=== PATIENT | male | born 1950 | race Caucasian/White ===

== ENCOUNTER 2017-06-21 20:33 | Emergency (ER) | payer OTHER ==
[~2017-06-21] VITALS: Ht 165.1 cm; Wt 105.0 kg
[~2017-06-21 20:33] MED LIST: UNABLE
[2017-06-21 20:44] VITALS: TEMP 36.6; Ht 165.1 cm; Wt 105.0 kg
[2017-06-21] MEDS ORDERED: SODIUM CHLORIDE 0.9% 1000ML 1,000 ML IV STA (21:13)
[2017-06-21] MEDS ORDERED: ONDANSETRON INJ 2 MG/ML 2 ML VIAL IV STA (21:13)
[2017-06-21 21:46] LABS: BASO % 0.2 %; BASO ABS # 0.02 K/uL (0-0.2); EOS % 3.6 %; EOS ABS # 0.32 K/uL (0-0.5); HEMATOCRIT 44.3 % (42-52); HEMOGLOBIN 15.4 g/dL (14.0-18.0); IG# 0.03 K/uL (0.00-0.02); LYMPH % 27.7 %; LYMPH ABS # 2.49 K/uL (1.2-3.4); MEAN CELL VOLUME 87.9 fL (80-100); MEAN CORPUSCULAR HEMOGLOBIN 30.6 pg (25-34); MEAN CORPUSCULAR HGB CONC 34.8 g/dl (32-36); MEAN PLATELET VOLUME 10.4 fL (7.4-10.4); MONO % 8.7 %; MONO ABS # 0.78 K/uL (0.11-0.59); NEUT % 59.5 %; NEUT ABS # 5.36 K/uL (1.4-6.5); PLATELET COUNT 185 K/uL (130-400); RED CELL DISTRIBUTION WIDTH CV 13.6 % (11.5-14.5); RED CELL DISTRIBUTION WIDTH SD 43.9 fL (36.4-46.3)
[2017-06-21] MEDS: MoRPHine SULFATE 4 MG/ML 1 ML CARP\\VIAL IV PRN ×2 (21:51→23:28)
--- NOTE | 2017-06-21 21:54 | EMERGENCY ROOM VISIT NOTE ---
History Report prepared by Deb: Shawn Siddiqui Under the Supervision of: Dr. Timmy Baeza M.D. First contact with patient: 21:11 Chief Complaint: FLANK PAIN Stated Complaint: REALLY BAD KIDNEY PAIN History of Present Illness The patient is a 66 year old male who presents to the Emergency Room with complaints of worsening right flank pain that started two weeks ago. He rates his discomfort as a 9/10 in severity. The patient states that he currently has five kidney stones in on the right side with on near his prostate, one near his bladder, and three farther up. The patient has been taking pain medication for his symptoms, but states that he ran out of pain medication. He states that he has been experiencing right flank pain, but reports he is not able to see his physician, Dr. Ruiz, [place] The patient reports that Dr. Ruiz told him to report to the ED if he runs out of medication and his pain worsened. He reports that his pain has been worsening and he has been experiencing nausea. He denies groin or testicular pain, vomiting, abdominal pain. The patient reports a history left kidney failure--he has one functioning kidney. Source of History: patient Onset: two weeks ago Position: other (right flank) Symptom Intensity: 9/10 Timing: worsening Modifying Factors (Relieving): other (pain medication) Associated Symptoms: + nausea, No vomiting, No abdominal pain Review of Systems See HPI for pertinent positives & negatives. A total of 10 systems reviewed and were otherwise negative. Past Medical & Surgical Medical Problems: (1) Kidney stone Surgical Problems: (1) History of unilateral nephrectomy Family History FH: heart disease FHx: lung disease Hypertension Kidney stones Social History Smoking Status: Never Smoker Marital Status: Housing Status: lives with significant other Occupation Status: retired Current/Historical Medications Scheduled Aspirin (Aspirin Ec), 81 MG PO DAILY Escitalopram Oxalate (Lexapro), 5 MG PO DAILY Gemfibrozil (Lopid), 600 MG PO BID Prazosin Hcl (Prazosin), 1 MG PO HS Trazodone Hcl (Trazodone), 100 MG PO HS [Blood Pressure Med], 1 TAB PO DAILY Allergies Coded Allergies: No Known Allergies (Unverified , 06/21/17) Physical Exam Vital Signs Date Time Temp Pulse Resp B/P (MAP) Pulse Ox O2 Delivery O2 Flow Rate FiO2 06/21/17 22:45 72 162/88 94 Room Air 06/21/17 20:44 36.6 67 18 149/91 97 Room Air Physical Exam GENERAL: Patient is in no acute distress. HEENT: No acute trauma, normocephalic atraumatic, mucous membranes moist, no nasal congestion, no scleral icterus. NECK: No stridor, no adenopathy, no meningismus, trachea is midline. LUNGS: Clear to auscultation bilaterally, no wheeze, no rhonchi, breath sounds equal. HEART: 2/6 systolic murmur with a regular rhythm and rate. ABDOMEN: Soft, nontender, bowel sounds positive, no hernias, no peritonitis. EXTREMITIES: No cyanosis or edema, full range of motion of all the joints without pain or difficulty, no signs for acute trauma. NEUROLOGIC: Oriented x 3, no acute motor or sensory deficits, no focal weakness. SKIN: No rash, no jaundice, no diaphoresis. Medical Decision & Procedures ER Provider Diagnostic Interpretation: Radiology results as stated below per my review and radiologist interpretation: ABD/PELVIS WITHOUT FOR STONE CLINICAL HISTORY: 66 years-old Male presenting with EVALUATE FLANK PAIN/HEMATURIA, right-sided pain. TECHNIQUE: Multidetector CT of the abdomen and pelvis was performed without the use of intravenous contrast. IV contrast: None. A dose lowering technique was used consistent with the principles of ALARA (as low as reasonably achievable). COMPARISON: None. CT DOSE (mGy.cm): The estimated cumulative dose is 1699.39 mGy.cm. FINDINGS: Offc Spec topogram: Median sternotomy wires and cholecystectomy clips noted. Lung bases: Minimal basilar opacities, likely atelectasis. Solid 5 mm nodule in the left lower lobe (series 3 image 42). Aortic valve and coronary artery calcification. Normal heart size. Postsurgical changes of coronary artery bypass grafting. No pericardial or pleural effusion. Liver: Normal morphology. Normal density. Biliary: No gross biliary ductal dilatation allowing for noncontrast technique. Gallbladder surgically absent. Pancreas: Mild parenchymal atrophy. Spleen: Few parenchymal calcifications may be vascular in etiology. Spleen is mildly enlarged measuring over 13 cm in maximal sagittal dimension. Adrenal glands: Mild nodular thickening of the adrenal glands, nonspecific. Kidneys and ureters: Postsurgical changes of left nephrectomy. No suspicious nodularity in the operative bed allowing for noncontrast technique. Right renal parenchyma normal for noncontrast technique apart from vague hypodensity in the posterior aspect of the interpolar region, possibly cyst. Multiple nonobstructing renal calculi measuring up to 5 mm. Extrarenal right pelvis. Right ureter nondilated. Residual left ureter contains a calculus (series 3 image 358). Bladder: Incompletely evaluated secondary to underdistention. No bladder calculi. Pelvic organs: Calcifications in the prostate likely relate to benign prostatic hyperplasia. Seminal vesicles normal. Surgical clip noted posterior to the left seminal vesicle and the rectal prostatic recess. Bowel: Diverticulosis of the descending and proximal sigmoid colon. Scattered diverticula noted elsewhere. The appendix is normal. No bowel obstruction. Peritoneal cavity: No free fluid or intraperitoneal gas. Lymph nodes: No gross lymphadenopathy allowing for noncontrast technique. Mildly prominent lymph node in the portacaval region, likely reactive and subcentimeter in the short axis. Vasculature: Atherosclerosis of the normal caliber abdominal aorta. Abdominal wall: Small fat-containing umbilical hernia. Musculoskeletal: Degenerative changes of the spine. Mild osteopenia. IMPRESSION: 1. Right nephrolithiasis. No hydronephrosis. No right ureteral calculi. 2. Postsurgical changes of left nephrectomy. No suspicious soft tissue in the operative bed allowing for noncontrast technique. 3. Mild splenomegaly. 4. Diverticulosis. 5. Solid 5 mm pulmonary nodule in the left lower lobe. Follow-up per Raheem Society 2017 recommendations below. 6. Mild osteopenia. Please refer to below summary of Fleischner Society 2017 recommendations for follow-up of incidental CT nodules (H Marya, et al. Guidelines for management of incidental pulmonary nodules detected on CT images: From the Fleischner Society 2017. Radiology 2017; 284: 228-243.) SOLID NODULES Single nodule; size < 6 mm * Low risk patients: No routine follow-up * High risk patients: Optional CT at 12 months Single nodule; size 6-8 mm * Low risk patients: CT at 6-12 months, then consider CT at 18-24 months * High risk patients: CT at 6-12 months, then at 18-24 months Single nodule; size > 8 mm * Either low or high risk patients: Considered CT at 3 months, PET/CT, or tissue sampling Multiple nodules; size < 6 mm * Low risk patients: No routine follow up * High risk patients: Optional CT at 12 months Multiple nodules; size 6-8 mm * Low risk patients: CT at 3-6 months, then consider CT at 18-24 months * High risk patients: CT at 3-6 months, then at 18-24 months Multiple nodules; size > 8 mm * Low risk patients: CT at 3-6 months, then consider at 18-24 months * High risk patients: CT at 3-6 months, then at 18-24 months Note: These guidelines apply to incidental nodules. These guidelines do not apply to patients younger than 35 years, immunocompromised patients, or patients with cancer. * Low risk patients: Minimal or absent history of smoking and/or other known risk factors * High risk patients: History of smoking, exposure to other carcinogens, emphysema, fibrosis, upper lobe location, family history of lung cancer, etc. * If a nodule up to 8 mm is partly solid or is ground glass, further follow-up is required after 24 months to exclude possible slow growing adenocarcinoma. SUBSOLID NODULES Single ground-glass nodule * Nodule size < 6 mm: No routine follow-up * Nodule size > or = 6 mm: CT at 6-12 months to confirm persistence, then CT every 2 years until 5 years Single part-solid nodule * Nodule size < 6 mm: No routine follow-up * Nodules size > or = 6 mm: CT at 3-6 months to confirm persistence. If unchanged and solid component remains < 6 mm, annual CT should be performed for 5 years Multiple nodules * Nodule size < 6 mm: CT at 3-6 months. If stable, consider CT at 2 and 4 years. * Nodules size > or = 6 mm: CT at 3-6 months. Subsequent management based on the most suspicious nodule(s) Electronically signed by: Brayden Márquez M.D. 06/21/2017 10:56 PM Dictated Date/Time: 06/21/2017 10:49 PM Laboratory Results 06/21/17 21:38 Red Blood Count 5.04, Mean Corpuscular Volume 87.9, Mean Corpuscular Hemoglobin 30.6, Mean Corpuscular Hemoglobin Concent 34.8, Mean Platelet Volume 10.4, Neutrophils (%) (Auto) 59.5, Lymphocytes (%) (Auto) 27.7, Monocytes (%) (Auto) 8.7, Eosinophils (%) (Auto) 3.6, Basophils (%) (Auto) 0.2, Neutrophils # (Auto) 5.36, Lymphocytes # (Auto) 2.49, Monocytes # (Auto) 0.78, Eosinophils # (Auto) 0.32, Basophils # (Auto) 0.02 06/21/17 21:38 06/21/17 23:20 Test 06/21/17 21:38 06/21/17 23:20 White Blood Count 9.00 K/uL (4.8-10.8) Red Blood Count 5.04 M/uL (4.7-6.1) Hemoglobin 15.4 g/dL (14.0-18.0) Hematocrit 44.3 % (42-52) Mean Corpuscular Volume 87.9 fL (80-100) Mean Corpuscular Hemoglobin 30.6 pg (25-34) Mean Corpuscular Hemoglobin Concent 34.8 g/dl (32-36) Platelet Count 185 K/uL (130-400) Mean Platelet Volume 10.4 fL (7.4-10.4) Neutrophils (%) (Auto) 59.5 % Lymphocytes (%) (Auto) 27.7 % Monocytes (%) (Auto) 8.7 % Eosinophils (%) (Auto) 3.6 % Basophils (%) (Auto) 0.2 % Neutrophils # (Auto) 5.36 K/uL (1.4-6.5) Lymphocytes # (Auto) 2.49 K/uL (1.2-3.4) Monocytes # (Auto) 0.78 K/uL (0.11-0.59) Eosinophils # (Auto) 0.32 K/uL (0-0.5) Basophils # (Auto) 0.02 K/uL (0-0.2) RDW Standard Deviation 43.9 fL (36.4-46.3) RDW Coefficient of Variation 13.6 % (11.5-14.5) Immature Granulocyte % (Auto) 0.3 % Immature Granulocyte # (Auto) 0.03 K/uL (0.00-0.02) Urine Color YELLOW Urine Appearance CLEAR (CLEAR) Urine pH 5.0 (4.5-7.5) Urine Specific [place] 1.024 (1.000-1.030) Urine Protein TRACE (NEG) Urine Glucose (UA) NEG (NEG) Urine Ketones NEG (NEG) Urine Occult Blood NEG (NEG) Urine Nitrite NEG (NEG) Urine Bilirubin NEG (NEG) Urine Urobilinogen NEG (NEG) Urine Leukocyte Esterase NEG (NEG) Urine WBC (Auto) 0 /hpf (0-5) Urine RBC (Auto) 0-4 /hpf (0-4) Urine Hyaline Casts (Auto) 0 /lpf (0-5) Urine Epithelial Cells (Auto) 0-5 /lpf (0-5) Urine Bacteria (Auto) NEG (NEG) Urine Crystals CALCIUM OXALATE (NONE Anion Gap 6.0 mmol/L (3-11) Est Creatinine Clear Calc Drug Dose 51.3 ml/min Estimated GFR () 52.5 Estimated GFR (Non- 45.3 BUN/Creatinine Ratio 12.6 (10-20) Calcium Level 8.8 mg/dl (8.5-10.1) Total Bilirubin 0.3 mg/dl (0.2-1) Alanine Aminotransferase (ALT/SGPT) 51 U/L (12-78) Alkaline Phosphatase 78 U/L (45-117) Total Protein 7.0 gm/dl (6.4-8.2) Albumin 3.1 gm/dl (3.4-5.0) Globulin 3.9 gm/dl (2.5-4.0) Albumin/Globulin Ratio 0.8 (0.9-2) Aspartate Amino Transf (AST/SGOT) 62 U/L (15-37) Laboratory results reviewed by me. Medications Administered Medications (Trade) Dose Ordered Sig/Ana Route Start Time Stop Time Status Last Admin Dose Admin Ondansetron HCl (Zofran Inj) 4 mg NOW STAT IV 06/21/17 21:13 06/21/17 21:16 DC 06/21/17 21:50 4 MG Sodium Chloride 1,000 ml @ 999 mls/hr Q1H1M STAT IV 06/21/17 21:13 06/21/17 22:13 DC 06/21/17 21:50 999 MLS/HR Morphine Sulfate (MoRPHine SULFATE INJ) 4 mg Q15M PRN IV 06/21/17 21:15 06/22/17 00:12 DC 06/21/17 23:28 4 MG Oxycodone HCl (Roxicodone Immediate Rel 5MG Home Pack) 1 homepack UD ONCE PO 06/21/17 23:45 06/21/17 23:46 DC 06/21/17 23:42 1 HOMEPACK ED Course 2107: The patient was evaluated in room B07. A complete history and physical exam was performed. 2112: Ordered Sodium Chloride 1000 ml @ 999 mls/hr IV, Zofran Injection 4 mg IV. 2114: Ordered Morphine Sulfate 4 mg IV. 2335: Reevaluated the patient. Discussed results and discharge instructions: He verbalized understanding and agreement. The patient is ready for discharge. 5: Ordered Oxycodone HCl 1 homepack PO. Medical Decision The patient is a 66 year old male who presents to the Emergency Room with complaints of worsening right flank pain that started two weeks ago. Differential diagnoses considered include renal colic, renal failure, hydronephrosis, UTI, electrolyte imbalance, dehydration, anemia, and musculoskeletal pain. There is no leukocytosis or concerning anemia. Renal panel testing shows some mild renal insufficiency, no significant electrolyte abnormality requiring correction. AST slightly elevated, no bilirubin elevation. Urinalysis does not show evidence for infection. Abdominal and pelvis CT shows evidence for renal stones but no hydronephrosis or ureteral stone. No bowel obstruction. The patient presents with right flank pain. He does admit the pain seems worse with certain movements. The pain may in fact be musculoskeletal. The patient received IV morphine, IV Zofran and IV saline, he is more comfortable. I do think the patient can be discharged. He was given information for the urologist [facility]. He was given an oxycodone home pack for severe pain, no oxycodone prescription was written. Patient was encouraged to return here for fever or vomiting or if he was having uncontrolled symptoms/pain. [place] Drug Monitoring Program Search Results: patient reviewed within database, see additional documentation Drug Monitoring Findings: He just received 90 Xanax tablets 1 mg five days ago. His last narcotic prescription was June 04 for 12 Hydrocodone Medication Reconcilliation Current Medication List: was personally reviewed by me Blood Pressure Screening Patient's blood pressure: Elevated blood pressure Blood pressure disposition: Referred to PCP Impression Primary Impression: Right flank pain Scribe Attestation The scribe's documentation has been prepared under my direction and personally reviewed by me in its entirety. I confirm that the note above accurately reflects all work, treatment, procedures, and medical decision making performed by me. Departure Information Dispostion Home / Self-Care Referrals Kip Arroyo D.O. (PCP) William Elias M.D. Forms HOME CARE DOCUMENTATION FORM, IMPORTANT VISIT INFORMATION Patient Instructions My [facility] Additional Instructions stay well hydrated oxy ir 1 tab every 4 hours for pain see urology this week--call for an appt friday return for fever, vomiting, uncontrolled pain heat to the flank may help as we discussed
[2017-06-21] MEDS ORDERED: PRAZ1CAP10 PO (22:01)
[2017-06-21] MEDS ORDERED: GEMF600T3 PO (22:01)
[2017-06-21] MEDS ORDERED: ASPI81TA28 PO (22:01)
[2017-06-21] MEDS ORDERED: ESCI1TAB6 PO (22:01)
[2017-06-21] MEDS ORDERED: TRAZ100T29 PO (22:01)
[2017-06-21] MEDS ORDERED: BLOOD PRESSURE MED PO (22:05)
[2017-06-21 22:15] LABS: ALBUMIN 3.1 gm/dl (3.4-5.0); CALCIUM 8.8 mg/dl (8.5-10.1); CREATININE 1.56 mg/dl (0.60-1.40)
[2017-06-21 22:45] VITALS: BP 162/88; PULSE 72; O2SAT 94
--- NOTE | 2017-06-21 22:58 | DIAGNOSTIC IMAGING REPORT ---
ABD/PELVIS WITHOUT FOR STONE CLINICAL HISTORY: 66 years-old Male presenting with EVALUATE FLANK PAIN/HEMATURIA, right-sided pain. TECHNIQUE: Multidetector CT of the abdomen and pelvis was performed without the use of intravenous contrast. IV contrast: None. A dose lowering technique was used consistent with the principles of ALARA (as low as reasonably achievable). COMPARISON: None. CT DOSE (mGy.cm): The estimated cumulative dose is 1699.39 mGy.cm. FINDINGS: Hotel Controller topogram: Median sternotomy wires and cholecystectomy clips noted. Lung bases: Minimal basilar opacities, likely atelectasis. Solid 5 mm nodule in the left lower lobe (series 3 image 42). Aortic valve and coronary artery calcification. Normal heart size. Postsurgical changes of coronary artery bypass grafting. No pericardial or pleural effusion. Liver: Normal morphology. Normal density. Biliary: No gross biliary ductal dilatation allowing for noncontrast technique. Gallbladder surgically absent. Pancreas: Mild parenchymal atrophy. Spleen: Few parenchymal calcifications may be vascular in etiology. Spleen is mildly enlarged measuring over 13 cm in maximal sagittal dimension. Adrenal glands: Mild nodular thickening of the adrenal glands, nonspecific. Kidneys and ureters: Postsurgical changes of left nephrectomy. No suspicious nodularity in the operative bed allowing for noncontrast technique. Right renal parenchyma normal for noncontrast technique apart from vague hypodensity in the posterior aspect of the interpolar region, possibly cyst. Multiple nonobstructing renal calculi measuring up to 5 mm. Extrarenal right pelvis. Right ureter nondilated. Residual left ureter contains a calculus (series 3 image 358). Bladder: Incompletely evaluated secondary to underdistention. No bladder calculi. Pelvic organs: Calcifications in the prostate likely relate to benign prostatic hyperplasia. Seminal vesicles normal. Surgical clip noted posterior to the left seminal vesicle and the rectal prostatic recess. Bowel: Diverticulosis of the descending and proximal sigmoid colon. Scattered diverticula noted elsewhere. The appendix is normal. No bowel obstruction. Peritoneal cavity: No free fluid or intraperitoneal gas. Lymph nodes: No gross lymphadenopathy allowing for noncontrast technique. Mildly prominent lymph node in the portacaval region, likely reactive and subcentimeter in the short axis. Vasculature: Atherosclerosis of the normal caliber abdominal aorta. Abdominal wall: Small fat-containing umbilical hernia. Musculoskeletal: Degenerative changes of the spine. Mild osteopenia. IMPRESSION: 1. Right nephrolithiasis. No hydronephrosis. No right ureteral calculi. 2. Postsurgical changes of left nephrectomy. No suspicious soft tissue in the operative bed allowing for noncontrast technique. 3. Mild splenomegaly. 4. Diverticulosis. 5. Solid 5 mm pulmonary nodule in the left lower lobe. Follow-up per Raheem Society 2017 recommendations below. 6. Mild osteopenia. Please refer to below summary of Fleischner Society 2017 recommendations for follow-up of incidental CT nodules (Alaina Malhotra et al. Guidelines for management of incidental pulmonary nodules detected on CT images: From the Fleischner Society 2017. Radiology 2017; 284: 228-243.) SOLID NODULES Single nodule; size < 6 mm * Low risk patients: No routine follow-up * High risk patients: Optional CT at 12 months Single nodule; size 6-8 mm * Low risk patients: CT at 6-12 months, then consider CT at 18-24 months * High risk patients: CT at 6-12 months, then at 18-24 months Single nodule; size > 8 mm * Either low or high risk patients: Considered CT at 3 months, PET/CT, or tissue sampling Multiple nodules; size < 6 mm * Low risk patients: No routine follow up * High risk patients: Optional CT at 12 months Multiple nodules; size 6-8 mm * Low risk patients: CT at 3-6 months, then consider CT at 18-24 months * High risk patients: CT at 3-6 months, then at 18-24 months Multiple nodules; size > 8 mm * Low risk patients: CT at 3-6 months, then consider at 18-24 months * High risk patients: CT at 3-6 months, then at 18-24 months Note: These guidelines apply to incidental nodules. These guidelines do not apply to patients younger than 35 years, immunocompromised patients, or patients with cancer. * Low risk patients: Minimal or absent history of smoking and/or other known risk factors * High risk patients: History of smoking, exposure to other carcinogens, emphysema, fibrosis, upper lobe location, family history of lung cancer, etc. * If a nodule up to 8 mm is partly solid or is ground glass, further follow-up is required after 24 months to exclude possible slow growing adenocarcinoma. SUBSOLID NODULES Single ground-glass nodule * Nodule size < 6 mm: No routine follow-up * Nodule size > or = 6 mm: CT at 6-12 months to confirm persistence, then CT every 2 years until 5 years Single part-solid nodule * Nodule size < 6 mm: No routine follow-up * Nodules size > or = 6 mm: CT at 3-6 months to confirm persistence. If unchanged and solid component remains < 6 mm, annual CT should be performed for 5 years Multiple nodules * Nodule size < 6 mm: CT at 3-6 months. If stable, consider CT at 2 and 4 years. * Nodules size > or = 6 mm: CT at 3-6 months. Subsequent management based on the most suspicious nodule(s) Electronically signed by: Brayden Márquez M.D. 06/21/2017 10:56 PM Dictated Date/Time: 06/21/2017 10:49 PM
[2017-06-21] MEDS ORDERED: OXYCODONE IR HOME PACK PO ONE (23:45)
[2017-06-21 23:50] LABS: POTASSIUM 3.9 mmol/L (3.5-5.1)
== END 2017-06-21 23:45 | disposition home or self-care (01) ==
LOC: C.EDB 20:33
DX: R10.9 Unspecified abdominal pain (principal); Z82.49 Family history of ischemic heart disease and other diseases of the circulatory system; Z79.82 Long term (current) use of aspirin; K57.90 Diverticulosis of intestine, part unspecified, without perforation or abscess without bleeding

== ENCOUNTER 2019-07-06 14:46 | Inpatient (IN) ==
[2019-07-06] MEDS ORDERED: MIDAZOLAM HCL 1 MG/ML 2ML VIAL ONE (14:47)
[2019-07-06] MEDS ORDERED: NITROGLYCERIN/D5W 100MCG/ML 20ML SYR ONE (14:47)
[2019-07-06] MEDS ORDERED: fentaNYL citrate 100 MCG/2 ML VIAL ONE ×2 (14:47→15:03)
[2019-07-06] MEDS ORDERED: HEPARIN (PORCINE) 1000 UNIT/ML 10 ML (CATH LAB USE ONLY) ONE (14:47)
[2019-07-06] MEDS ORDERED: NiCARDipine HCL INJ 2.5 MG/ML 10 ML AMP ONE (14:47)
[2019-07-06] MEDS ORDERED: ONDANSETRON INJ 2 MG/ML 2 ML VIAL IV STA (15:01)
[2019-07-06] MEDS ORDERED: fentaNYL citrate 100 MCG/2 ML VIAL IV PRN (15:01)
--- NOTE | 2019-07-06 15:05 | XRay Report ---
XR chest 1V portable CLINICAL HISTORY: Chest Pain dyspnea COMPARISON STUDY: 03/17/2019 FINDINGS: Prior median sternotomy. Mild stable cardiomegaly. Diaphragms are smooth. The lungs are clear. IMPRESSION: No acute process. ACT 112: Negative or not required by law. The above report was generated using voice recognition software. It may contain grammatical, syntax or spelling errors. Electronically signed by: Huang Eckert M.D. 07/06/2019 3:03 PM
[2019-07-06 15:06] LABS: Basophils # (auto) 0.01 K/uL (0-0.2); Basophils % (auto) 0.1 %; Eosinophils # (auto) 0.11 K/uL (0-0.5); Eosinophils % (auto) 0.7 %; Hematocrit (blood only) 41.6 % (42-52); Hemoglobin 14.1 g/dL (14.0-18.0); Immature Granulocytes # (auto) 0.07 K/uL (0.00-0.02); Immature Granulocytes % (auto) 0.4 %; Lymphocytes # (auto) 1.92 K/uL (1.2-3.4); Lymphocytes % (auto) 11.9 %; Mean Corpuscular Hemoglobin 30.5 pg (25-34); Mean Corpuscular Hgb Conc 33.9 g/dL (32-36); Mean Platelet Volume 10.8 fL (7.4-10.4); Monocytes # (auto) 1.77 K/uL (0.11-0.59); Neutrophils # (auto) 12.25 K/uL (1.4-6.5); Neutrophils % (auto) 75.9 %; Platelet Count 155 K/uL (130-400); RDW Standard Deviation 49.5 fL (36.4-46.3); Red Blood Count 4.62 M/uL (4.7-6.1); White Blood Count 16.13 K/uL (4.8-10.8)
--- NOTE | 2019-07-06 15:06 | Electrocardiogram Report ---
Test Reason : Blood Pressure : / mmHG Vent. Rate : 086 BPM Atrial Rate : 086 BPM P-R Int : 148 ms QRS Dur : 092 ms QT Int : 384 ms P-R-T Axes : 030 021 083 degrees QTc Int : 459 ms Poor data quality, interpretation may be adversely affected Sinus rhythm with Premature atrial complexes in a pattern of bigeminy Inferior infarct (cited on or before 17-MAR-2019) T wave abnormality, consider lateral ischemia ACUTE AL / STEMI Consider right ventricular involvement in acute inferior infarct Abnormal ECG When compared with ECG of 17-MAR-2019 19:19, Premature atrial complexes are now Present ST elevation now present in Inferior leads T wave inversion now evident in Inferior leads Confirmed by Alek Osman ([id number]) on 07/06/2019 3:05:52 PM Referred By: REFERRED SELF Confirmed By:Tushar Osman
--- NOTE | 2019-07-06 15:09 | Emergency Department Note ---
Entered by Casper Cooper acting as a scribe for History of Present Illness General Chief complaint: Heart Alert Stated complaint: heart alert Source: patient and EMS History of Present Illness Onset (ago): day(s) (this morning) Location: chest Current Pain Intensity: 8 Relieved By: + medication (aspirin) Associated symptoms: + other (Positive for chronic SOB and a chronic cough. Negative for pain/swelling in his legs.) The patient is a 68 year old male who presents to the emergency department with complaints of constant chest pain beginning this morning. The patient states that he had an ND and multiple cardiac stents placed 3 days ago and he notes that he was discharged yesterday. He reports that he was given 4 aspirin by EMS, and he states that his chest pain is not as bad now. He rates his pain as an 8/10. He also complains of chronic SOB and a chronic cough, but he denies any pain/swelling in his legs. He notes that he does not smoke cigarettes. Per EMS, the patient also has a history of bypass surgery. The patient reports that he is supposed to use oxygen at home. Home Medications Home Medications Medication Instructions Recorded Confirmed Type alprazolam 1 mg PO TID PRN 02/18/18 03/17/19 History prazosin 1 mg PO HS 02/18/18 03/17/19 History trazodone 100 mg PO HS 02/18/18 03/17/19 History allopurinol 100 mg PO BID #60 tab 09/30/18 03/17/19 Rx paroxetine HCl 30 mg PO DAILY 09/30/18 03/17/19 History amlodipine 10 mg PO DAILY 03/17/19 03/17/19 History tamsulosin 0.4 mg PO DAILY 03/17/19 03/17/19 History Allergies Allergy/AdvReac Type Severity Reaction Status Date / Time ciprofloxacin Allergy Severe Swelling Unverified 07/06/19 19:13 of Lip/Tongue/Throat Past Med/Surg History Medical History (Updated 07/06/19 @ 16:47 by Antonio Everett MD) Arthritis Back pain (Acute) Bilateral leg pain (Acute) Chronic renal disease (Inactive) Emphysema of lung Gout (Acute) Heart disease HTN (hypertension) (Acute) Hypertension (Inactive) Kidney stone Left torticollis (Inactive) Myocardial infarct Noncompliance with medication regimen (Inactive) S/p nephrectomy Surgical History History of open heart surgery Hx of CABG Family History (Updated 07/06/19 @ 14:56 by Casper Cooper) Other No significant family history Social History (Updated 07/06/19 @ 14:56 by Casper Cooper) Preferred Language: Kyrgyz Communication Ability: Effective Automobile Bumper Straightener Required: No Current Living Situation: Spouse and Family Current Living Situation Comment: Lives with spouse and daughter Other Information That Helps Us Care for You: No Feels Safe at Home: Yes Safety Concerns: Feels Safe At This Time Smoking Status: Never smoker Hx Alcohol Use: No Hx Substance Use: No Review of Systems See HPI for pertinent positives & negatives. and A total of 10 systems reviewed and were otherwise negative Physical Exam Vital Signs Vital Signs - 24 hr 07/06/19 14:51 07/06/19 14:55 07/06/19 14:58 Temperature 36.5 C Temperature Source Oral Pulse Rate 91 H 83 86 Pulse Rate [Apical] Pulse Rate from SpO2 Sensor 88 84 97 H Pulse Rhythm [Apical] Pulse Strength [Apical] Respiratory Rate 16 Respiratory Effort / Characteristics Respiratory Depth Blood Pressure 179/102 H 168/99 H Blood Pressure [Right Arm] Blood Pressure Mean 134 107 Blood Pressure Mean [Right Arm] Blood Pressure Position [Right Arm] Pulse Oximetry 96 98 97 Oxygen Delivery Method Room Air Oxygen Flow Rate Sepsis Recent Fever Within 48 Hours No Sepsis New/Unexplained Change in Mental Status No Sepsis Action Taken by Nursing No Action Required 07/06/19 15:00 07/06/19 15:11 07/06/19 16:00 Temperature Temperature Source Pulse Rate 90 Pulse Rate [Apical] 83 Pulse Rate from SpO2 Sensor Pulse Rhythm [Apical] Regular Pulse Strength [Apical] Normal Respiratory Rate 20 22 Respiratory Effort / Characteristics Spontaneous Respiratory Depth Normal Blood Pressure 206/109 H Blood Pressure [Right Arm] 153/87 H Blood Pressure Mean Blood Pressure Mean [Right Arm] 109 Blood Pressure Position [Right Arm] Sitting Pulse Oximetry 97 95 97 Oxygen Delivery Method Nasal Cannula Nasal Cannula Room Air Oxygen Flow Rate 3 3 Sepsis Recent Fever Within 48 Hours Sepsis New/Unexplained Change in Mental Status Sepsis Action Taken by Nursing 07/06/19 16:15 Temperature Temperature Source Pulse Rate Pulse Rate [Apical] 78 Pulse Rate from SpO2 Sensor Pulse Rhythm [Apical] Regular Pulse Strength [Apical] Normal Respiratory Rate 22 Respiratory Effort / Characteristics Spontaneous Respiratory Depth Normal Blood Pressure Blood Pressure [Right Arm] 149/80 H Blood Pressure Mean Blood Pressure Mean [Right Arm] 103 Blood Pressure Position [Right Arm] Sitting Pulse Oximetry 97 Oxygen Delivery Method Room Air Oxygen Flow Rate Sepsis Recent Fever Within 48 Hours Sepsis New/Unexplained Change in Mental Status Sepsis Action Taken by Nursing GENERAL: The patient is awake and alert. He is very uncomfortable and anxious appearing. EYES: The conjunctivae are clear. The pupils are round and reactive. EARS, NOSE, MOUTH AND THROAT: The nose is without any evidence of any deformity. Mucous membranes are moist. Tongue is midline. NECK: The neck is nontender and supple. RESPIRATORY: Diminished breath sounds are noted throughout. There are scattered rhonchi noted throughout. There is no tachypnea or conversational dyspnea. CARDIOVASCULAR: Regular rate and rhythm noted there no murmurs rubs or gallops normal S1 normal S2. GASTROINTESTINAL: The abdomen is soft. Abdomen is nontender. MUSCULOSKELETAL/EXTREMITIES: There is no evidence of gross deformity full range of motion is noted in the hips and shoulders. SKIN: There is no obvious evidence of any rash. There is significant ecchymosis noted in the right wrist as well as the right groin. These of the areas of the recent cardiac catheterization. Pulses are symmetric in both wrists. There is pedal edema bilaterally. NEUROLOGIC: Patient is awake alert and oriented x3. Course Course 1447: The patient was evaluated in room B1. A complete history and physical exam was performed. 1510: Upon reevaluation, the patient is stable. I discussed the findings and the treatment plan with the patient. He expresses agreement and understanding. I spoke with JUSTYN Reece. The patient was taken to the [facility] for further treatment. Consultations Consultation #1: I reviewed the patient's case with JUSTYN Reece. The patient was taken to the [facility] for further treatment. Time: 15:10 Administered Medications Albuterol (Ventolin 0.5% 2.5mg/0.5ml) 2.5 mg NEB Q6R PRN PRN Reason: wheeze Stop: 08/05/19 18:59 Last Admin: 07/06/19 19:09 Dose: 2.5 mg Documented by: [id number] Amlodipine Besylate (Norvasc) 10 mg PO QAM [facility] Stop: 03/26/20 18:14 Last Admin: 07/06/19 19:24 Dose: 10 mg Documented by: [id number] Fentanyl Citrate (Fentanyl Citrate) 50 mcg IV Q15M PRN PRN Reason: Pain Stop: 07/20/19 15:00 Last Admin: 07/06/19 15:05 Dose: 50 mcg Documented by: [id number] Sodium Chloride (Nss 1000ml) 500 mls @ 75 mls/hr IV .Q6H40M [facility] Stop: 07/06/19 22:54 Last Admin: 07/06/19 18:00 Dose: 75 mls/hr Documented by: [id number] Isosorbide Mononitrate (Imdur Extended Rel) 30 mg PO QAM [facility] Stop: 08/05/19 18:14 Last Admin: 07/06/19 19:23 Dose: 30 mg Documented by: [id number] Discontinued Medications Fentanyl Citrate (Fentanyl Citrate) Confirm Administered Dose 100 mcg .ROUTE .STK-MED ONE Stop: 07/06/19 14:48 Last Increment: 07/06/19 16:12 Dose: 50 mcg Documented by: [id number] Fentanyl Citrate (Fentanyl Citrate) Confirm Administered Dose 100 mcg .ROUTE .STK-MED ONE Stop: 07/06/19 15:04 Last Admin: 07/06/19 15:08 Dose: Not Given Documented by: [id number] Heparin Sodium (Porcine) (Heparin Iv Bolus (Beading Machine Operator Use Only)) Confirm Admini stered Dose 10,000 units .ROUTE .STK-MED ONE Stop: 07/06/19 14:48 Last Admin: 07/06/19 16:13 Dose: 8,000 units Documented by: [id number] Heparin Sodium/Sodium Chloride (Heparin/Nss 1000 Unit/500ml Flush Bag) Confirm Administered Dose 3,000 units IV .STK-MED ONE Stop: 07/06/19 14:48 Last Admin: 07/06/19 18:21 Dose: Not Given Documented by: [id number] Midazolam HCl (Versed) Confirm Administered Dose 2 mg .ROUTE .STK-MED ONE Stop: 07/06/19 14:48 Last Increment: 07/06/19 16:13 Dose: 1 mg Documented by: [id number] Nicardipine HCl (Cardene) Confirm Administered Dose 25 mg .ROUTE .STK-MED ONE Stop: 07/06/19 14:48 Last Admin: 07/06/19 18:21 Dose: Not Given Documented by: [id number] Nitroglycerin/Dextrose (Nitroglycerin/D5w 100 Mcg/Ml 20ml Syringe) Confirm Ad ministered Dose 2,000 mcg .ROUTE .STK-MED ONE Stop: 07/06/19 14:48 Last Admin: 07/06/19 18:21 Dose: Not Given Documented by: [id number] Ondansetron HCl (Zofran) 4 mg IV NOW STA Stop: 07/06/19 15:02 Last Admin: 07/06/19 15:05 Dose: 4 mg Documented by: [id number] Critical Care Time Critical Care Time: Yes Total Critical Care Time: 40 I have personally spent greater than 45 minutes of critical care time in the direct management of this patient. This includes bedside care, interpretation of diagnostic studies, and testing, discussion with consultants, patient, and family members, and other required patient management activities. This 45 minutes is in excess of all separately billable procedures. Medical Decision Making Differential Diagnosis Differential diagnoses includes but is not limited to acute coronary syndrome, myocardial infarction, pericarditis, pulmonary embolus, aortic dissection, pneumonia, pneumothorax, musculoskeletal, shingles, esophageal. Medical Records Attestation: I reviewed the patient's medical records. Home Medications Current Medication List: was personally reviewed by me Laboratory Data Attestation: I reviewed the patient's lab results. Result diagrams: 07/06/19 14:49 07/06/19 14:49 Lab Results 07/06/19 07/06/19 07/06/19 Range/Units 14:49 14:49 14:49 WBC 16.13 H (4.8-10.8) K/uL RBC 4.62 L (4.7-6.1) M/uL Hgb 14.1 (14.0-18.0) g/dL Hct 41.6 L (42-52) % MCV 90.0 (80-100) fL MCH 30.5 (25-34) pg MCHC 33.9 (32-36) g/dL RDW Std Deviation 49.5 H (36.4-46.3) fL RDW Coeff of Kathleen 15.0 H (11.5-14.5) % Plt Count 155 (130-400) K/uL MPV 10.8 H (7.4-10.4) fL Immature Gran % (Auto) 0.4 % Neut % (Auto) 75.9 % Lymph % (Auto) 11.9 % [place] % (Auto) 11.0 % Eos % (Auto) 0.7 % Baso % (Auto) 0.1 % Immature Gran # (Auto) 0.07 H (0.00-0.02) K/uL Neut # (Auto) 12.25 H (1.4-6.5) K/uL Lymph # (Auto) 1.92 (1.2-3.4) K/uL [place] # (Auto) 1.77 H (0.11-0.59) K/uL Eos # (Auto) 0.11 (0-0.5) K/uL Baso # (Auto) 0.01 (0-0.2) K/uL PT 11.0 (9.0-12.0) Seconds INR 1.1 (0.9-1.1) APTT 28.1 (21.0-31.0) Seconds PTT Ratio 1.0 Sodium 138 (136-145) mmol/L Potassium 3.9 (3.5-5.1) mmol/L Chloride 106 (98-107) mmol/L Carbon Dioxide 25 (21-32) mmol/L Anion Gap 7.0 (3-11) BUN 22 H (7-18) mg/dl Creatinine 1.62 H (0.6-1.4) mg/dl Est Cr Clr Drug Dosing 50.5 ml/min Est GFR ( Amer) 49.5 Est GFR (Non-Af Amer) 42.7 BUN/Creatinine Ratio 13.5 (10-20) Glucose 95 (70-99) mg/dl Calcium 8.3 L (8.5-10.1) mg/dl Total Bilirubin 0.8 (0.2-1) mg/dl AST 111 H (15-37) U/L ALT 91 H (12-78) U/L Alkaline Phosphatase 131 H (45-117) U/L Troponin I 23.300 H* (0-0.045) ng/ml Total Protein 6.8 (6.4-8.2) gm/dl Albumin 2.3 L (3.4-5.0) gm/dl Globulin 4.5 H (2.5-4.0) gm/dl Albumin/Globulin Ratio 0.5 L (0.9-2) Lipase 223 (73-393) U/L Imaging Data Radiologist's Impression: Radiology results as stated below per my review and the radiologist's interpretation: XR chest 1V portable FINDINGS: Prior median sternotomy. Mild stable cardiomegaly. Diaphragms are smooth. The lungs are clear. IMPRESSION: No acute process. ACT 112: Negative or not required by law. The above report was generated using voice recognition software. It may contain grammatical, syntax or spelling errors. Electronically signed by: Huang Eckert M.D. 07/06/2019 3:03 PM ECG Data Attestation: I personally reviewed and interpreted this ECG as follows: Indication: + chest pain Rate (beats per minute): 86 Rhythm: + sinus rhythm ECG ST segments: + ST elevation (Persistent of previously noted inferior ST elevations with reciprocal changes noted.) ECG Findings: + PACs Additional Comments: Prehospital EKG: NS, 83, no ectopy, anterior and lateral ST depressions, inferior ST elevation, compared to 03/17/19, inferior ST elevations are new. Blood Pressure Blood Pressure Findings: Elevated blood pressure Blood Pressure Disposition: further management by hospitalist SHEN Crystal An order was placed for continuous cardiac monitoring. The monitor shows a rate of 75 with sinus rhythm. The patient is a 68-year-old male who presented to the emergency department for an evaluation of chest pain. The patient arrived at the emergency department via ambulance. We received a prehospital notification about the patient because of abnormal EKG which appears to be consistent with acute ND. The patient recently had stent placement at [facility]. He was only discharged yesterday. The patient's EKG appears to be consistent with an acute ST segment elevation ND in the inferior leads. The patient had a right-sided coronary stent. I would be concerned this could represent stent occlusion. The patient was made a heart alert prior to arrival. He was treated with aspirin prior to arrival. He was treated with pain medication in the emergency department. I di scussed the patient's condition with the interventionalist lay out helper. He was evaluated in the emergency department by the business continuity director. We were also able to obtain the patient's cath report from [facility] via fax. This was reviewed prior to cardiology's arrival. The patient was reevaluated multiple times he was feeling somewhat improved on reevaluation. He was taken directly to the cardiac catheterization lab. I discussed his case also with the [facility] hospitalist. Impression & Plan ST elevation (STEMI) myocardial infarction, Hypertension, Left-sided chest pain Discharge Plan Visit Data *Final* Discharge Date/Time: 07/06/19 15:24 Chief Complaint: Heart Alert Stated Complaint: heart alert ED Provider: Matthew Robles Discharge Problem: ST elevation (STEMI) myocardial infarction, Hypertension, Left-sided chest pain Patient Disposition: Admitted As Inpatient Discharge Instructions Interventions: ED Discharge Assessment Last Done: 07/06/19 15:11 The scribe's documentation has been prepared under my direction and personally reviewed by me in its entirety. I confirm that the note above accurately reflects all work, treatment, procedures, and medical decision making performed by me.
[2019-07-06 15:17] LABS: INR 1.1 (0.9-1.1); Partial Thromboplastin Time 28.1 Seconds (21.0-31.0)
--- NOTE | 2019-07-06 15:19 | Pre Anesthesia Assessment ---
Date of Service July 06, 2019 Pre Sedation Assessment Vital Signs Temp Pulse Resp BP Pulse Ox 07/06/19 15:11 90 20 206/109 H 95 07/06/19 15:00 97 07/06/19 14:58 86 168/99 H 97 07/06/19 14:55 83 98 07/06/19 14:51 97.7 F 91 H 16 179/102 H 96 Cardiovascular RRR, no murmur, no edema Respiratory normal respiratory effort, lungs clear to auscultation Pre-Sedation Airway Assessment Smoking Status: Never smoker Hx Sleep Apnea: No Hx Difficult Intubation: No Short, Thick Neck: No Thyromental Distance: > or= 3.5 Finger Breadths Oral Cavity: + WNL Mallampati Class: III ASA: ASA3 Procedure Planning Contraindications for Sedation: none Current Medications Reviewed: Yes Notes The planned sedation has been discussed with the patient. Informed Consent was obtained. I have identified the patient, determined the appropriateness of sedation and have assessed the patient immediately prior to the procedure. All medicine(s) and interventions are by my order.
--- NOTE | 2019-07-06 15:20 | Cardiology Consultation ---
Date of Consultation July 06, 2019 Assessment & Plan (1) CAD (coronary artery disease): Patient here with recurrent chest pain, vomiting beginning this morning. This occurred in the setting of patient not being able to fill his new antihypertensives, antiplatelet therapy following discharge. Unclear if inferior ST elevations, elevated troponin are residual findings from recent NH or suggestive of subacute stent thrombosis. With ongoing symptoms we will plan for repeat coronary angiography. In the setting of recent contrast load, solitary kidney will limit additional contrast administration. Discussed risks, benefits, alternatives of procedure with patient and they are willing to proceed. Further recommendations pending findings of coronary angiography. History of Present Illness History of Present Illness Mr. Hansen is a 68-year-old man here with acute chest pain and ECG concerning for acute NH. Patient seen emergently in the ED after heart alert activated in route. Patient was discharged from [facility] yesterday after treatment for inferior STEMI on 07/03/2019. Catheterization at that time revealed mid RCA occlusion which was treated with a single drug-eluting stent (3 x 33 Xience) and angioplasty with 2.5 balloon to distal RCA. Was found to have severe proximal to mid circumflex disease which and per family patient was to undergo staged PCI in 2 to 3 weeks. His vein grafts were chronically occluded. HELLER not visualized. Post procedure echocardiogram showed preserved LV function with basal inferior hypokinesis. Patient discharged yesterday to home and was feeling well initially. Per he had a questionable choking episode last night. This morning was nauseous and vomited and later developed chest pain. Chest pain less severe than what had prior to his recent NH. EKG in route showed sinus rhythm with inferior Q waves and inferior ST elevations. Past medical history: Coronary artery disease with CABG 2010 with HELLER to LAD, vein graft to diagonal, OM and PDA; hypertension, asthma, dyslipidemia, carotid artery disease post carotid enterectomy, post left nephrectomy with chronic kidney disease, gout Allergies Allergy/AdvReac Type Severity Reaction Status Date / Time No Known Allergies Allergy Verified 03/17/19 20:35 Home Medications Home Medications Medication Instructions Recorded Confirmed Type alprazolam 1 mg PO TID PRN 02/18/18 03/17/19 History prazosin 1 mg PO HS 02/18/18 03/17/19 History trazodone 100 mg PO HS 02/18/18 03/17/19 History allopurinol 100 mg PO BID #60 tab 09/30/18 03/17/19 Rx paroxetine HCl 30 mg PO DAILY 09/30/18 03/17/19 History amlodipine 10 mg PO DAILY 03/17/19 03/17/19 History tamsulosin 0.4 mg PO DAILY 03/17/19 03/17/19 History Patient History Medical History (Updated 07/06/19 @ 16:47 by Antonio Everett MD) Arthritis Back pain (Acute) Bilateral leg pain (Acute) Chronic renal disease (Inactive) Emphysema of lung Gout (Acute) Heart disease HTN (hypertension) (Acute) Hypertension (Inactive) Kidney stone Left torticollis (Inactive) Myocardial infarct Noncompliance with medication regimen (Inactive) S/p nephrectomy Surgical History History of open heart surgery Hx of CABG Family History (Updated 07/06/19 @ 14:56 by Casper Cooper) Other No significant family history Social History (Updated 07/06/19 @ 14:56 by Casper Cooper) Preferred Language: Turkish Current Living Situation: Family Feels Safe at Home: Yes Smoking Status: Never smoker Hx Substance Use: No Review of Systems Review of Systems: All systems reviewed & are unremarkable except as noted in HPI & below Physical Exam Physical Exam: General: Uncomfortable, no acute distress HEENT: Sclerae anicteric Lungs: Tachypneic, audible wheezing Cardiac: Regular rate, 2 out of 6 systolic ejection murmur Abdomen: Soft, nontender Extremities: Warm, 2+ radial pulses. Ecchymosis at right radial artery access site and right common femoral artery access site Neuro: Nonfocal Psych: Alert orient x3, normal affect and mood Results & Data ([facility]) Vital Signs (Past 12 Hours) Vital Signs Temp Pulse Resp BP Pulse Ox 07/06/19 15:11 90 20 206/109 H 95 07/06/19 15:00 97 07/06/19 14:58 86 168/99 H 97 07/06/19 14:55 83 98 07/06/19 14:51 97.7 F 91 H 16 179/102 H 96 PG Care Time/CCT Total # of Minutes Spent Total Time Spent with Patient: Total time spent is greater than 50% in coordination of care (as documented) at patient's floor/unit and/or counseling patient: Coding Level of Care Code 34954 Initial Inpt Care Lvl 3 Diagnoses CAD (coronary artery disease) I25.10
[2019-07-06 15:22] LABS: Albumin Level 2.3 gm/dl (3.4-5.0); BUN Creatinine Ratio 13.5 (10-20); Calcium 8.3 mg/dl (8.5-10.1); Creatinine Clr Calc Pharmacy 50.5 ml/min; Est GFR (African American) 49.5; Est GFR (Non-African American) 42.7; Potassium 3.9 mmol/L (3.5-5.1)
[2019-07-06 15:28] LABS: Albumin Globulin Ratio 0.5 (0.9-2); Bilirubin,Total 0.8 mg/dl (0.2-1); Globulin 4.5 gm/dl (2.5-4.0); Total Protein 6.8 gm/dl (6.4-8.2); Troponin I 23.3 ng/ml (0-0.045)
--- NOTE | 2019-07-06 15:33 | Critical Care Consultation ---
Date of Consultation July 06, 2019 Assessment & Plan (1) Heart disease: Reason Critically Ill: Neuro: CAM ICU: Negative Cardiac: * Chest pain - EKG showing ST segment elevation with T wave inversion, new from study in 03/2019. Troponin elevated to 23.3. continue to trend. Cath * Hx CABG * Hx of HTN - BP elevated on arrival to 206/109. Respiratory: GI: * Elevated liver enzymes - AST 111, ALT 91 on admission. continue to trend. RENAL/LYTES: * Creatinine elevated to 1.62 on admission. Baseline unknown, but chart review suggests ~1.6. * electrolytes WNL * Hx of nephrectomy : ENDO: * no underlying history of diabetes. ICU protocol for hyperglycemia HEME: - hgb normal. no issues identified ID: - WBC elevated on admission. consider infection vs. stress response. - Nasal MRSA swab LINES/IV ACCESS: CODE STATUS: Full code DVT PROPHYLAXIS: Thank you for allowing us to participate in the care of this patient. Please refer to my attending physician's documentation for any further recommendations. History of Present Illness Reason for Consultation: Patient is a 68 yo M with a PMHx of ASCVD requiring CABG in 03/2019 and most recently PCI with 3 ATA placed 3 days ago at ___. He was brought to the ED as a heart alert this afternoon after developing chest pain this morning. He was administered 324mg ASA by EMS. EKG on arrival showed ST segment elevated with T wave inversion in the inferior leads, new compared to study in 03/2019. His troponin on arrival was 23.3. Liver enzymes were elevated. CXR showing no acute process. He was taken emergently to the industrial laborer. ICU team was asked by interventional cardiology team to assist with monitoring following his procedure. History was obtained by chart review Attending Physician: Alek Everett MD Allergies Allergy/AdvReac Type Severity Reaction Status Date / Time No Known Allergies Allergy Verified 03/17/19 20:35 Home Medications Home Medications Medication Instructions Recorded Confirmed Type alprazolam 1 mg PO TID PRN 02/18/18 03/17/19 History prazosin 1 mg PO HS 02/18/18 03/17/19 History trazodone 100 mg PO HS 02/18/18 03/17/19 History allopurinol 100 mg PO BID #60 tab 09/30/18 03/17/19 Rx paroxetine HCl 30 mg PO DAILY 09/30/18 03/17/19 History amlodipine 10 mg PO DAILY 03/17/19 03/17/19 History tamsulosin 0.4 mg PO DAILY 03/17/19 03/17/19 History Patient History Medical History (Updated 07/06/19 @ 14:55 by Casper Cooper) Arthritis Back pain (Acute) Bilateral leg pain (Acute) Chronic renal disease (Inactive) Emphysema of lung Gout (Acute) Heart disease HTN (hypertension) (Acute) Hypertension (Inactive) Kidney stone Left torticollis (Inactive) Myocardial infarct Noncompliance with medication regimen (Inactive) S/p nephrectomy Surgical History History of open heart surgery Hx of CABG Family History (Updated 07/06/19 @ 14:56 by Casper Cooper) Other No significant family history Social History (Updated 07/06/19 @ 14:56 by Casper Cooper) Preferred Language: Kazakh Current Living Situation: Family Feels Safe at Home: Yes Smoking Status: Never smoker Hx Substance Use: No Physical Exam Constitutional: WD/WN, vitals as above Eyes: + anicteric sclerae ENMT: external ear and nose normal, oropharynx normal Neck: normal visual inspection and trachea midline Respiratory: normal respiratory effort, lungs clear to auscultation Auscultation: no crackles, no rales, no rhonchi, no wheezes and no pleural rub Cardiovascular: RRR, no murmur, no edema Heart Sounds: normal S1 and normal S2 Gastrointestinal (Abdomen): normal bowel sounds, soft, nontender, no hepatosplenomegaly Skin: no rashes, warm and dry + ecchymosis (on R wrist and groin, consistent with recent cardiac stent access sites ) Results & Data Vital Signs (Past 12 Hours) Vital Signs Temp Pulse Resp BP Pulse Ox 07/06/19 15:11 90 20 206/109 H 95 07/06/19 15:00 97 07/06/19 14:58 86 168/99 H 97 07/06/19 14:55 83 98 07/06/19 14:51 36.5 C 91 H 16 179/102 H 96 Resident Activity Tracking Resident Involvement: Resident Care Provided Care Provided: Adult [facility] Medicine
[2019-07-06] MEDS ORDERED: SODIUM CHLORIDE 0.9% 1000ML 500 ML IV SCH (16:15)
[2019-07-06] MEDS ORDERED: ACETAMINOPHEN 325 MG TAB PO PRN (16:31)
--- NOTE | 2019-07-06 17:10 | Cardiac Catheterization ---
[facility] Data: Saw Offbearer Cardiac Status Clinical evaluation leading to the procedure CAD Presenation: Non STEMI Anginal Classification: CCS IV Heart Failure: No Cardiogenic Shock within 24 Hours: No Cardiac Arrest within 24 Hours: No Imaging Studies Past 6 Months: Yes Stress Studies Past 6 Months: No Diagnostic Physicians Name: Alek Everett MD Status: Emergency Closure Device Percutaneous Entry Location: Radial Closure Device: Radial Band Recommendations: Medical Therapy and/or Counseling Intraprocedure Events Significant Disection: No Perforation: No Cardiac Cath Procedure Full Procedure Date July 06, 2019 Pre-Procedure Diagnosis Pre-Procedure Diagnosis: Non STEMI AUC Score AUC Score: 8 Post-Procedure Diagnosis Post-Procedure Diagnosis: Severe CAD and Elevated Intracardiac Pressures Procedure(s) Performed Procedure(s) Performed: Coronary Angiography, Left Heart Cath, Ultrasound Guided Vascular Access and Bypass Graft Angiography Malt House Loader Alek Everett MD Kiln Worker(s) Brandon Estimated Blood Loss Estimated Blood Loss: 10 Medication(s) Medication(s): Fentanyl, Heparin, Lidocaine 1%, Nicardipine, Nitroglycerin and Versed Summary of Findings Indication: Inferior STEMI post primary PCI to mid RCA with ATA and angioplasty to distal RCA 3 days ago at [facility]. Recurrent chest pain with persistent inferior ST elevations, elevated troponin today. Access: 6 Fr slender left radial artery under ultrasound guide Catheters: JR4 guide, diagnostic JR4, TED, pigtail Findings: LM -Short vessel with moderate diffuse disease LAD -diffuse severe up to 80% proximal to mid disease prior to 100% occlusion after takeoff of bifurcating first diagonal. Diagonal with 80% proximal stenosis. Circumflex -medium caliber vessel with 80-90% proximal stenosis, 80% mid stenosis. Small first OM with severe diffuse disease. RCA - Dominant, medium caliber, widely patent long mid RCA stent, 40% distal RCA residual stenosis. 40-50% stenosis in mid PDA HELLER to LADwidely patent, retrofilled into second diagonal. No significant distal LAD disease after anastomosis. LVEDP -25 Arterial Closure: TR band Summary: 1. Multivessel coronary artery disease -Widely patent recent mid RCA stent, 40% distal RCA stenosis 80-90% proximal, mid circumflex disease 80% proximal LAD, first diagonal disease 2. HELLER to LAD widely patent 3. SVG to PDA, OM, diagonal known to be occluded 4. Elevated intracardiac filling pressure Recommendations: Patient with CLARICE-3 flow throughout [place] coronary arteries and HELLER graft. No evidence of subacute stent thrombosis. No indication for acute intervention at this time. Plan to resume antihypertensives, antianginal therapy and gentle diuresis. Continue DAPT with aspirin, clopidogrel. Per family scheduled to undergo staged PCI with production supervisor off shift in [place] presumably to his circumflex Hemodynamics Rest Ao:: 132/74/99 Final Ao: 146/76/106 LV: 149/25 Recommendations Recommendations: Medical Therapy and/or Counseling Specimens Specimens: None Radiation Exposure (mGy) 1456 Contrast (mls) 70 Visi Fluids (cc crystalloids) Fluids (cc crystalloids): 25 Drains Drains: none Anesthesia moderate Procedural Complication(s) None Disposition PCU I attest to the content of the Intraoperative Record and any orders documented therein. Any exceptions are noted below. [facility] Card Cath Procedure Codes Cardiac Catheterization Procedure 1: Cardiovascular Cath Procedures: 23364 Coronaries & LHC (+/-LV) & Grafts/IM (arterial & venous) Therapeutic Services & Ancillary Proc Procedure 1: Cardiovascular Tx and Anc Procedures: 87557 Ultrasonic Guidance Vascular Access Moderate Sedation Procedure 1: Sedation/Anesthesia: 94486 Mod Sedation by the same physician;Init15 Min Child Age 5 & Up PG Care Time/CCT Total # of Minutes Spent Total Time Spent with Patient: Total time spent is greater than 50% in coordination of care (as documented) at patient's floor/unit and/or counseling patient:
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
[2019-07-06] MEDS: ALBUTEROL 0.5% NEB SOLN 2.5 MG/0.5 ML VIAL NEB PRN (19:09)
[2019-07-06] MEDS: ISOSORBIDE MONO EXTENDED REL 30 MG TABCR PO SCH (19:23)
--- NOTE | 2019-07-06 19:23 | XRay Report ---
XR chest 1V portable CLINICAL HISTORY: questionable aspiration COMPARISON STUDY: 07/06/2019 FINDINGS: The cardiac and mediastinal contours remain stable. There are postsurgical changes of a mid line sternotomy. There is no failure. There is no focal pulmonary consolidation. There are no pleural effusions.[ IMPRESSION: No active disease in the chest. ACT 112: Negative or not required by law. Electronically signed by: Gianni Hunt M.D. 07/06/2019 7:22 PM
[2019-07-06] MEDS: AMLODIPINE BESYLATE 5 MG TAB PO SCH (19:24)
[2019-07-06] MEDS: carvediloL 12.5 MG TAB PO SCH (20:39)
[2019-07-06] MEDS: TRAZODONE HCL 100 MG TAB PO SCH (20:40)
[2019-07-07 05:02] LABS: Basophils # (auto) 0.01 K/uL (0-0.2); Basophils % (auto) 0.1 %; Eosinophils # (auto) 0.22 K/uL (0-0.5); Eosinophils % (auto) 1.6 %; Hematocrit (blood only) 39.1 % (42-52); Hemoglobin 12.8 g/dL (14.0-18.0); Immature Granulocytes # (auto) 0.04 K/uL (0.00-0.02); Immature Granulocytes % (auto) 0.3 %; Lymphocytes # (auto) 1.82 K/uL (1.2-3.4); Lymphocytes % (auto) 13.5 %; Mean Corpuscular Hemoglobin 30.3 pg (25-34); Mean Corpuscular Hgb Conc 32.7 g/dL (32-36); Mean Corpuscular Volume 92.7 fL (80-100); Mean Platelet Volume 10.4 fL (7.4-10.4); Monocytes # (auto) 1.64 K/uL (0.11-0.59); Monocytes % (auto) 12.1 %; Neutrophils # (auto) 9.79 K/uL (1.4-6.5); Neutrophils % (auto) 72.4 %; Platelet Count 138 K/uL (130-400); RDW Coefficient of Variation 15.5 % (11.5-14.5); RDW Standard Deviation 52.5 fL (36.4-46.3); Red Blood Count 4.22 M/uL (4.7-6.1); White Blood Count 13.52 K/uL (4.8-10.8)
[2019-07-07 05:27] LABS: BUN Creatinine Ratio 13.3 (10-20); Creatinine Clr Calc Pharmacy 45.7 ml/min; Est GFR (African American) 43.8; Est GFR (Non-African American) 37.8
[2019-07-07] MEDS ORDERED: PERFLUTREN LIPID MICROSPHERE (DEFINITY) IV ONE (07:30)
[2019-07-07] MEDS: ENOXAPARIN INJ 40 MG/0.4 ML SYR SQ SCH (09:03)
[2019-07-07] MEDS: carvediloL 12.5 MG TAB PO SCH ×2 (09:03→21:10)
[2019-07-07] MEDS: ASPIRIN 81 MG ECTAB PO SCH (09:04)
[2019-07-07] MEDS: ATORVASTATIN 40 MG TAB PO SCH (09:04)
[2019-07-07] MEDS: PARoxetine HCL 10 MG TAB PO SCH (09:04)
[2019-07-07] MEDS: ISOSORBIDE MONO EXTENDED REL 30 MG TABCR PO SCH (09:04)
[2019-07-07] MEDS: AMLODIPINE BESYLATE 5 MG TAB PO SCH (09:04)
[2019-07-07] MEDS: CLOPIDOGREL BISULFATE 75 MG TAB PO SCH (09:04)
--- NOTE | 2019-07-07 09:29 | XRay Report ---
XR chest 1V portable HISTORY: wheezing COMPARISON: Chest 07/06/2019. FINDINGS: No pneumothorax. No pleural effusions. The heart remains mildly enlarged. There is mild faustino tral pulmonary vascular congestion without overt edema. No new focal lung consolidations to suggest p neumonia. Poststernotomy changes. IMPRESSION: Cardiomegaly with mild central pulmonary vascular congestion. This has slightly progressed in the int erval. ACT 112: Negative or not required by law. Electronically signed by: Evan Ramos M.D. 07/07/2019 9:28 AM
[2019-07-07] MEDS: ALBUTEROL 0.5% NEB SOLN 2.5 MG/0.5 ML VIAL NEB PRN ×3 (11:10→23:06)
--- NOTE | 2019-07-07 11:47 | XCELERA ---
[id number] \\[id number]\[id number]___[id number]
--- NOTE | 2019-07-07 13:11 | Cardiology Progress Note ---
Date of Service July 07, 2019 Assessment & Plan (1) CAD (coronary artery disease): --Multivessel CAD, patent RCA stent 2. Recent inferior MD 3. Hypertension 4. CKD/solitary kidney 5. Acute diastolic heart failure 6. Asthma/COPD 7. Paroxysmal wide-complex tachycardia Patient has remained chest pain-free and troponin is downtrending. Residual ST elevations, troponin elevation on admission secondary to recent MD as opposed to recurrent event. Renal function stable post catheterization This morning breathing more labored, notable wheezing. Some congestion on chest x-ray Echo reviewedLV function preserved, inferior wall motion abnormality. No pericardial effusion Continue DAPT with aspirin, clopidogrel Would give 40 of IV Lasix today for some componenet of acute diastolic heart failure Wide-complex tachycardiaSVT with aberrancy versus nonsustained VTcontinue current carvedilol Continue amlodipine, Imdur Plan to add MICHAEL if renal function stable Continue high intensity statin Additional therapy for reactive airway disease/COPD per primary team Admission and Anticipated Discharge Date Admission Date: July 07, 2019 Subjective No recurrent chest pain overnight. States breathing near baseline although audibly wheezing this morning. Otherwise reports just feeling tired this morning. Telemetry reviewedepisode of brief wide-complex tachycardia this morning, asymptomatic Review of Systems Review of Systems: All systems reviewed & are unremarkable except as noted in HPI & below Physical Exam Physical Exam: General: No acute distress, audible wheezing HEENT: Sclerae anicteric, mucous membranes moist Lungs: Rhonchorous, diffuse wheezing no significant rales Cardiac: Regular rate and rhythm, 2/6 systolic ejection murmur Abdomen: Soft, nontender Extremities: Warm, well perfused. Ecchymosis at left radial artery access site. Pulse intact. Minimal edema Neuro: Nonfocal Psych: Alert orient x3, normal affect and mood Results & Data ([facility]) Vital Signs (Past 12 Hours) Vital Signs Temp Pulse Pulse Resp BP Pulse Ox 07/07/19 11:18 97.9 F 77 20 110/55 L 95 07/07/19 11:10 79 22 95 07/07/19 08:23 22 96 07/07/19 08:00 71 07/07/19 07:24 98.1 F 75 22 171/107 H 93 07/07/19 04:29 98.4 F 81 22 122/82 93 PG Care Time/CCT Total # of Minutes Spent Total Time Spent with Patient: Total time spent is greater than 50% in coordination of care (as documented) at patient's floor/unit and/or counseling patient: Coding Level of Care Code 97696 Subseq Hosp Care Lvl 3 Diagnoses CAD (coronary artery disease) I25.10
--- NOTE | 2019-07-07 13:45 | Fluoroscopy Report ---
FL video swallow HISTORY: Aspiration TECHNIQUE: Video fluoroscopic evaluation of swallowing was performed in the AP and lateral projection s by the speech pathology staff. The patient is fed nectar-thick and thin liquid barium, a barium coa armando wafer, and barium pudding. FLUOROSCOPY TIME: 3.5 minutes. NUMBER OF FLUOROSCOPY IMAGES: 0 COMPARISON STUDY: None. FINDINGS: When swallowing thin liquids, there was penetration and aspiration. When swallowing nectar thick liquids, there was penetration and aspiration. When swallowing pudding, there was no penetratio n or aspiration. There is disordered esophageal motility. IMPRESSION: 1. Aspiration of thin and nectar thick liquids. Disordered esophageal motility. 2. Please see the speech pathologist report for detailed findings and recommendations. ACT 112: Negative or not required by law. Electronically signed by: Gianni Hunt M.D. 07/07/2019 1:44 PM
[2019-07-07] MEDS ORDERED: FUROSEMIDE 40 MG in SYRINGE 0 ML IV ONE (15:00)
[2019-07-07] MEDS: TRAZODONE HCL 100 MG TAB PO SCH (21:10)
--- NOTE | 2019-07-07 21:54 | Hospitalist Progress Note ---
Date of Service July 07, 2019 Assessment & Plan (1) Acute diastolic (congestive) heart failure: Patient is wheezing. BNP is elevaed. Limited echo shows normal LV. Unable to assess JVD due to body habitus. Patient does have acute kidney failure. Will do a trial of lasix IV. Patient was initially under obs, will admit. NO consolidation noted in will continue to monitor. (2) CAD (coronary artery disease): Patient underwent cardiac catheterization earlier today with Dr. Everett. Please see his full report. Patient's newly placed RCA stent was widely patent. Plan will be to continue antiplatelet therapy as previously prescribed. Patient will be monitored overnight and we will recheck troponin. Tentative plan for discharge the morning once cleared by cardiology. In addition, I do not see statin on his medication list and will order Lipitor 40 mg daily. (3) HTN (hypertension): Patient is blood pressure is borderline. Will continue amlodipine 10 mg and Cardura 1 mg nightly. will continue to monitor (4) Emphysema of lung: Per history, patient apparently has a history of hypercapnic respiratory failure secondary to COPD. Will order a home O2 evaluation prior to his discharge with possible addition of home oxygen. Patient will continue to be NPO. Admission and Anticipated Discharge Date Admission Date: July 07, 2019 Subjective 68 yo male reports that he wants to continue to eat. Patient's is at bedside. Patient states he is still having SOB. Patient agrees to being NPO reluctantly due to the speech eval. Patient though had some lili crackers without permission as stated by nursing staff. Despite being SOB, patient's main complaint is the fact that he cannot eat. Review of Systems Review of Systems: All systems reviewed & are unremarkable except as noted in HPI & below Physical Exam Physical Exam: Constitutional: cooperative; no acute distress Neck: trachea midline, no thyromegaly Respiratory: normal respiratory effort Auscultation: bilateral wheezing heard. Cardiovascular: Rate/Rhythm: regular rate and regular rhythm Heart Sounds: normal S1 and normal S2 Gastrointestinal (Abdomen): Inspection/Auscultation: abdomen normal to inspection Percussion/Palpation: abdomen soft; abdomen nontender, no guarding, abdomen not rigid and no hepatosplenomegaly Musculoskeletal: Patient has some ecchymosis right left, presumably from his previous cardiac catheterization. Skin: no rashes, warm and dry Results & Data ([facility]) Vital Signs (Past 12 Hours) Vital Signs Temp Pulse Pulse Resp BP Pulse Ox 07/07/19 19:37 37.0 C 81 21 119/65 93 07/07/19 17:00 66 20 95 07/07/19 15:26 36.9 C 74 24 128/72 95 07/07/19 14:58 72 07/07/19 11:18 36.6 C 77 20 110/55 L 95 07/07/19 11:10 79 22 95 PG Care Time/CCT Total # of Minutes Spent Total Time Spent with Patient: Total time spent is greater than 50% in coord ination of care (as documented) at patient's floor/unit and/or counseling patient: Coding Level of Care Code 50375 Subseq Hosp Care Lvl 3 Diagnoses Acute diastolic (congestive) heart failure I50.31 CAD (coronary artery disease) I25.10 HTN (hypertension) I10 Hypertension type: unspecified Emphysema of lung J43.9 Time Spent (min) 35 (1) HTN (hypertension) Hypertension type: unspecified Qualified Code(s): I10 - Essential (primary) hypertension
[2019-07-08] MEDS ORDERED: BUDESONIDE 0.5 MG/2 ML VIAL (PULMICORT) NEB STA (01:11)
[2019-07-08] MEDS ORDERED: ALBUT/IPRATROP 3MG/0.5MG NEB 3 ML VIAL NEB STA (01:11)
[2019-07-08] MEDS ORDERED: VANCOMYCIN CONSULT ACTIVE PRN (02:30)
[2019-07-08] MEDS ORDERED: PIPERACILL/TAZOBAC CONSULT ACTIVE PRN (02:30)
[2019-07-08] MEDS ORDERED: RAPID SEQUENCE INDUCTION BAG ONE (02:54)
[2019-07-08] MEDS ORDERED: VANCOMYCIN HCL 2,000 MG in SODIUM CHLORIDE 0.9% 500 ML IV ONE (03:00)
[2019-07-08] MEDS ORDERED: PIPERACILLIN/TAZOBACTAM 4.5 GM in DEXTROSE 5% 100 ML IV ONE ×2 (03:00→06:30)
[2019-07-08] MEDS ORDERED: ALBUMIN HUMAN 25% 12.5 GM/50 ML VIAL IV ONE (03:08)
[2019-07-08] MEDS ORDERED: MIDAZOLAM HCL 125MG/250ML D5W ONE (03:19)
[2019-07-08 03:43] LABS: BUN Creatinine Ratio 16.7 (10-20); Calcium 8.2 mg/dl (8.5-10.1); Creatinine Clr Calc Pharmacy 46.1 ml/min; Est GFR (African American) 46.3; Potassium 4.4 mmol/L (3.5-5.1)
[2019-07-08 03:57] LABS: Hematocrit (blood only) 39.4 % (42-52); Hemoglobin 12.7 g/dL (14.0-18.0); Mean Corpuscular Hemoglobin 30.1 pg (25-34); Mean Corpuscular Hgb Conc 32.2 g/dL (32-36); Mean Corpuscular Volume 93.4 fL (80-100); Mean Platelet Volume 10.8 fL (7.4-10.4); Platelet Count 160 K/uL (130-400); RDW Coefficient of Variation 15.3 % (11.5-14.5); RDW Standard Deviation 52.4 fL (36.4-46.3); Red Blood Count 4.22 M/uL (4.7-6.1); White Blood Count 14.96 K/uL (4.8-10.8)
[2019-07-08] MEDS ORDERED: fentaNYL citrate 100 MCG/2 ML VIAL IV PRN (04:21)
[2019-07-08] MEDS ORDERED: ICU PROTOCOL FOR HYPERGLYCEMIA PRN (04:21)
--- NOTE | 2019-07-08 05:14 | Procedure Note ---
Procedure Note Date of Service July 08, 2019 Procedure: Arterial Line Placement Attending: Dr. Morelos APC: Gennaro Starkey PA-C Indication: Monitoring on Pressors Anesthesia: Lidocaine 1% Emergent consent implied in the setting of worsening clinical status and need for frequent ABGs as well as close hemodynamic monitoring status post endotracheal intubation. Patient unable to verbally consents secondary to somnolent state and current state of intubation. A time-out was completed verifying correct patient, procedure, site, posi tioning, and implant(s) or special equipment if applicable. Allens test was performed to ensure adequate perfusion. Patients RIGHT wrist was prepped and draped in the usual sterile fashion. Ultrasound guidance was used to aid needle placement. A 20g Arrow arterial line was introduced into the RIGHT Radial artery. Catheter was threaded, and the needle was removed with appropriate blood return. Good waveform was observed. The patient tolerated the procedure well. Confirmation of placement with ultrasound. Blood Loss: Minimal Complications: None Procedural Ultrasound Guidance: Procedure Date: 07/08/2019 Indication: ABGs, Pressors, Labs Attending: Dr. Morelos APC: Gennaro Starkey PA-C Artery Identified: YES Line confirmed in Artery with ultrasound: YES Complications: NONE Patient tolerated procedure: WELL Coding CPT Codes Tubes, Drains, and Vasc Access - Tubes, Drains, and Vasc Access: [id number] Place Catheter In Artery ([id number]) [facility] [place] Procedure Codes (Charges) Tubes, Drains, and Vasc Access Procedure 2: Tubes, Drains, and Vasc Access: [id number] Place Catheter In Artery
--- NOTE | 2019-07-08 05:14 | Critical Care Consultation ---
Date of Consultation July 08, 2019 Assessment & Plan (1) Admitted to intensive care unit: Reason Critically Ill: 68-year-old male in acute on chronic hypoxic respiratory failure with hypercapnia and somnolent state requiring intubation for airway protection. NEURO - * CAM ICU: POSITIVE * Sedation: Initially started with Versed as downtime and unable to assess patient's echocardiogram and wish to avoid negative inotropic medications. Will add propofol and DC Versed pending clinical picture. * Pain: Fentanyl * Altered mental status: * Likely metabolic encephalopathy in the setting of acute CO2 narcosis. Patient does follow simple commands. No focal deficits at this time. Consider brain imaging after patient resuscitated. CARDIAC/VASCULAR - * ST segment elevations noted on EKG status post recent PTCA with ATA. * Unable to review prior EKG secondary to computer downtime. * Hospital staff did speak with interventional to his remainder of the case. His EKG was unchanged from prior. * Will recheck troponin to ensure it is trending down. * Uncertain IVF at this time secondary to computer downtime. Chest x-ray more consistent with infiltrative changes at this time. Consider addition of Lasix if patient's blood pressure tolerates. * Monitor on telemetry. RESPIRATORY - * Acute on chronic hypoxic respiratory failure with hypercapnia: * Likely secondary to COPD with acute aspiration event. * Initial ABG 7.21 with a CO2 greater than 80. Patient somnolent and requiring high positive pressure settings to maintain oxygen saturations in the high 80s. Decision made to proceed with emergent endotracheal intubation. * Titrate ventilator settings as needed. * Status post intubation, patient was noted to have significant milky secretions consistent with concern for aspiration event. * Trend ABGs. * Agree with Zosyn and Rocephin at this time. GI/NUTRITION - * N.p.o. at this time. * OG in place. RENAL/LYTES - * Baseline creatinine in the status post nephrectomy patient. * Will hold on IV fluids with concern for possible component of volume overload. - * House in place - Strict I&Os. ENDO - * No known history of diabetes or thyroid disease. * BSGs per unit protocol. ISS --> gtt per unit policy. HEME - * Stable H&H. ID - * Aspiration pneumonia: * Agree with Zosyn and vancomycin at this point. * Will check nasal MRSA swab for continuation of MRSA coverage. * Check lactate and pro-Chung. LINES/IV ACCESS - * PIVs x2 * LEFT IJ * RIGHT radial arterial line * ET tube * House catheter DVT PROPHYLAXIS - * Lovenox * SCDs I have personally spent 85 minutes of critical care time in the direct management of this patient. This is a life/limb threatening event. This includes time spent evaluating patient, direct bedside care, chart review, placing orders, interpretation of diagnostic studies, discussion with consultants, patient, and family members, as well as other required patient management activities. This time is exclusive of all separately billable procedures, and teaching time and separate from and in addition to any other critical care service time. Thank you for allowing us to participate in the care of this patient. Please refer to my attending physician's documentation for any further recommendations. (2) Acute on chronic respiratory failure with hypoxia and hypercapnia: (3) Aspiration pneumonia: (4) CAD (coronary artery disease): (5) Acute diastolic (congestive) heart failure: (6) Heart disease: (7) HTN (hypertension): (8) Emphysema of lung: (9) Hx of CABG: (10) History of open heart surgery: Supervising Physician Co-Signing Physician Notes I have personally evaluated and examined this patient. I agree with assessment and plan of Belem Starkey PA-C. The following documentation is reflective of my care delivered on July 08, 2019 after signout at 0700 Patient was discussed on multidisciplinary rounds. Hypercarbia improved. Requiring vasoactive medication to maintain blood pressure. We discussed surrogate medical decision maker, the patient's is currently admitted with a pneumonia on telemetry status, there is report of 2 daughters and the patient's deferred to the 2 daughters. Eventually nursing staff was contacted by a son who reports he is a son from a prior marriage. According to [employer] law as the patient does not have a designated surrogate decision maker both the patient's and adult living children from a prior marriage would be of equal status. We will follow-up with them regarding consents for procedures. Ultimately it sounds that the patient has a chronic presumably end-stage condition of esophageal dysmotility with recurrent aspiration. Our goal will be to get the patient over this pneumonia which is presumably aspiration in origin and then proceed with medical decision making regarding treatment plans for recurrent aspiration risks. I have personally spent 40 minutes of critical care time in the direct management of this patient. This is a life/limb threatening event. This includes time spent evaluating patient, direct bedside care, chart review, placing orders, interpretation of diagnostic studies, discussion with consultants, patient, and/or family members regarding treatment decisions, as well as other required patient management activities. This time is exclusive of all separately billable procedures, and teaching time and separate from and in addition to any other critical care service time. History of Present Illness Attending Physician: Levon Cao History of Present Illness Patient is a 68-year-old male with a significant past medical history of coronary artery disease, hypertension, status post CABG, status post nephrectomy, and COPD. Patient recently underwent PTCA with ATA to the RCA on the at [facility] [place]. Patient had been doing well, but was brought to this facility on the with complaints of chest pain and shortness of breath. Patient was noted to have inferior ST segment elevations and was taken to the catheterization suite where he was noted to have no culprit lesions. He had been doing well on the floor, however last evening, the patient was noted to become more hypoxic today and lethargic. Patient was placed on BiPAP. Chest x- ray is concerning for infiltrative changes. Patient was noted to be in acute hypoxic respiratory failure with hypercarbia and metabolic encephalopathy. Patient was brought emergently to the ICU for further evaluation and management. Upon arrival in the ICU, the patient is alert to stimuli and nods his head, but is somnolent otherwise. He follows simple commands. Unable to obtain entire historical information secondary to mental status. Allergies Allergy/AdvReac Type Severity Reaction Status Date / Time ciprofloxacin Allergy Severe Swelling Unverified 07/06/19 19:13 of Lip/Tongue/Throat Home Medications Home Medications Medication Instructions Recorded Confirmed Type alprazolam 1 mg PO TID PRN 02/18/18 03/17/19 History prazosin 1 mg PO HS 02/18/18 03/17/19 History trazodone 100 mg PO HS 02/18/18 03/17/19 History allopurinol 100 mg PO BID #60 tab 09/30/18 03/17/19 Rx paroxetine HCl 30 mg PO DAILY 09/30/18 03/17/19 History amlodipine 10 mg PO DAILY 03/17/19 03/17/19 History tamsulosin 0.4 mg PO DAILY 03/17/19 03/17/19 History Patient History Medical History Arthritis Back pain (Acute) Bilateral leg pain (Acute) Chronic renal disease (Inactive) Emphysema of lung Gout (Acute) Heart disease HTN (hypertension) (Acute) Hypertension (Inactive) Kidney stone Left torticollis (Inactive) Myocardial infarct Noncompliance with medication regimen (Inactive) S/p nephrectomy Surgical History History of open heart surgery Hx of CABG Family History Other No significant family history Social History Preferred Language: Pashto Communication Ability: Effective Hoe Runner Required: No Current Living Situation: Spouse and Family Current Living Situation Comment: Lives with spouse and daughter Other Information That Helps Us Care for You: No Feels Safe at Home: Yes Safety Concerns: Feels Safe At This Time Smoking Status: Never smoker Hx Alcohol Use: No Hx Substance Use: No Review of Systems Review of Systems: Unobtainable due to cognitive status Physical Exam Physical Exam: VITAL SIGNS - Vital signs and nursing notes were reviewed. GENERAL - 68-year-old male appearing his stated age who is in moderate respiratory distress. Somnolent but responds to verbal stimuli. SKIN - Without rashes. HEAD - NC/AT. EYES - PERRL with EOMI bilaterally. Sclera anicteric. EARS - No deformities of external structures noted on gross examination bilaterally. NOSE - Midline and without cyanosis. No epistaxis or purulent drainage noted. MOUTH/OROPHARYNX - Without perioral cyanosis. Buccal mucosa pink and dry. Poor dentition. NECK - Neck with FROM. Supple to palpation. No nuchal rigidity. LUNGS -tachypneic. Coarse breath sounds noted throughout. CARDIAC - RRR with S1/S2. No murmur, rubs, or gallops appreciated. ABDOMEN - Abdominal contour obese without pulsations or visible masses. BS normoactive all four quadrants. No tenderness, palpable masses, hepatosplenomegaly, or ascites noted. EXTREMITIES - No clubbing or peripheral cyanosis. No pretibial edema present. +3/5 radial and dorsalis pedis pulses palpated throughout. +5/5 strength noted in UE/LE bilaterally. NEUROLOGIC -no focal neurological deficits noted. Moves all 4 extremities independently. Unable to assess further secondary to somnolent state. Follows simple commands. Alert to verbal stimuli. Results & Data ([facility]) Vital Signs (Past 12 Hours) Vital Signs Temp Pulse Pulse Resp BP BP Pulse Ox 07/08/19 01:40 68 16 91 07/08/19 00:00 77 07/07/19 23:45 36.4 C L 73 20 111/63 86 L 07/07/19 23:07 79 18 91 07/07/19 19:37 37.0 C 81 21 119/65 93 07/07/19 17:00 66 20 95 Coding Level of Care Code Critical Care ea addt'l 30 min Diagnoses Admitted to intensive care unit Z78.9 Acute on chronic respiratory failure with hypoxia and hypercapnia J96.21; J96.22 Aspiration pneumonia J69.0 CAD (coronary artery disease) I25.10 Acute diastolic (congestive) heart failure I50.31 Heart disease I51.9 HTN (hypertension) I10 Hypertension type: unspecified Emphysema of lung J43.9 Hx of CABG Z95.1 History of open heart surgery Z98.890 Time Spent (min) 85 Comment Belem Starkey 85 minutes followed by Bart Morelos 40 minutes total time 125 minutes (1) HTN (hypertension) Hypertension type: unspecified Qualified Code(s): I10 - Essential (primary) hypertension
--- NOTE | 2019-07-08 05:14 | Procedure Note ---
Procedure Note Date of Service July 08, 2019 APC: Gennaro Starkey PA-C. Attending: Dr. Morelos A time-out was completed verifying correct patient, procedure, site, positioning. Patient was evaluated and required intubation for acute hypoxic respiratory failure with hypercarbia and somnolent state. Sedative agent used: Etomidate, fentanyl. Paralysis agent used: Succinylcholine. Emergent consent was implied given patients rapidly declining clinical status and need for airway protection. The patient was prepared in the appropriate fashion. Sedation was achieved utilizing Fentanyl, Etomidate, and Succinylcholine per Dr. Hussein administration. The patient was easily ventilated using [id number] to achieve adequate oxygenation. An 8.0 Dutch endotracheal tube was placed using Madison scope visualization to 7 cm at the lip. The stylette was removed and balloon was inflated with 10mL of air. Appropriate Colorimetric change was appreciated. Bilateral breath sounds were heard without air sounds in the abdomen. Dr. Hussein was present for the entire procedure. Post Intubation Chest X-ray confirms placement without pneumothorax. ET tube appeared to terminate ~2.5 cm from the cyrus. Was withdrawn 1.0 cm. Patient tolerated the procedure well and there were no immediate complications. Coding CPT Codes Resuscitation - Resuscitation: 65426 Endotracheal Intubation, emergency ([id number]) [facility] [place] Procedure Codes (Charges) Resuscitation Resuscitation: [id number] Endotracheal Intubation, emergency
[2019-07-08 05:24] LABS: iSTAT Allen Test Pass; iSTAT Art Bld Gas pCO2 Correct 49 mmHg (35-46); iSTAT Art Bld Gas pH Corrected 7.348 (7.35-7.45); iSTAT Arterial Blood Gas HCO3 27 meg/L (19-24); iSTAT Arterial Blood Gas pCO2 50 mmHg (35-46); iSTAT Arterial Blood Gas pH 7.34 (7.35-7.45); iSTAT Arterial Blood Gas pO2 66 mmHg (80-95); iSTAT Arterial Blood Gas pO2 C 64; iSTAT Carbon Dioxide 28 mmol/L (24-31); iSTAT FiO2 60 %; iSTAT Hematocrit 35 % (42-52); iSTAT Hemoglobin 11.9 g/dl (14.0-18.0); iSTAT Potassium 4.5 mmol/L (3.3-5.0); iSTAT Site Art Line; iSTAT Sodium 137 mmol/L (135-144)
[2019-07-08 05:24] LABS: Allen Test Pos (Pos); Base Excess ABG -1.2 mEq/L (-9-1.8); HCO3 ABG 26 mmol/L (19-24); Oxygen Saturation ABG 90.5 % (90-95); PCO2 ABG 51 mmHg (35-46); PO2 ABG 60 mmHg (80-95); pH ABG 7.32 (7.35-7.45)
[2019-07-08 05:36] LABS: Basophils # (auto) 0.02 K/uL (0-0.2); Basophils % (auto) 0.1 %; Eosinophils # (auto) 0.13 K/uL (0-0.5); Eosinophils % (auto) 0.8 %; Hematocrit (blood only) 37.9 % (42-52); Hemoglobin 12.3 g/dL (14.0-18.0); Immature Granulocytes # (auto) 0.07 K/uL (0.00-0.02); Immature Granulocytes % (auto) 0.4 %; Lymphocytes # (auto) 0.89 K/uL (1.2-3.4); Lymphocytes % (auto) 5.3 %; Mean Corpuscular Hemoglobin 30.4 pg (25-34); Mean Corpuscular Volume 93.8 fL (80-100); Mean Platelet Volume 10.7 fL (7.4-10.4); Monocytes # (auto) 1.21 K/uL (0.11-0.59); Monocytes % (auto) 7.2 %; Neutrophils # (auto) 14.39 K/uL (1.4-6.5); Neutrophils % (auto) 86.2 %; Platelet Count 188 K/uL (130-400); RDW Coefficient of Variation 15.1 % (11.5-14.5); Red Blood Count 4.04 M/uL (4.7-6.1); White Blood Count 16.71 K/uL (4.8-10.8)
[2019-07-08 05:48] LABS: Mean Corpuscular Hgb Conc 32.5 g/dL (32-36)
[2019-07-08 05:55] LABS: Albumin Level 2.4 gm/dl (3.4-5.0); BUN Creatinine Ratio 16.7 (10-20); Bilirubin,Total 1.6 mg/dl (0.2-1); Calcium 8.1 mg/dl (8.5-10.1); Phosphorus 4.2 mg/dl (2.5-4.9); Total Protein 6.7 gm/dl (6.4-8.2); Troponin I 7.11 ng/ml (0-0.045)
[2019-07-08 06:02] LABS: Potassium 4.8 mmol/L (3.5-5.1)
[2019-07-08 06:07] LABS: Creatinine Clr Calc Pharmacy 42.5 ml/min; Est GFR (Non-African American) 37.1
[2019-07-08 06:08] LABS: Bilirubin Direct 0.7 mg/dl (0-0.2); Magnesium 2.1 mg/dl (1.8-2.4)
[2019-07-08] MEDS ORDERED: STAT IV Infusion **Titration per Protocol STA ×3 (06:23→11:36)
[2019-07-08] MEDS ORDERED: propofoL 1,000 MG/100 ML VIAL IV SCH (06:30)
--- NOTE | 2019-07-08 06:31 | Procedure Note ---
Procedure Note Date of Service July 08, 2019 Procedure: Internal Jugular Central Line Placement Attending: Dr. Morelos APC: Gennaro Starkey PA-C Indication: Central Drug Administration, Poor Venous Access, Multiple Lab Draws Necessary, etc. Anesthesia: Lidocaine 1% Emergent consent implied in the setting of worsening clinical status and need for frequent labs, multiple medications, and poor peripheral access. Patient unable to verbally consents secondary to somnolent state and current state of intubation. A time-out was completed verifying correct patient, procedure, site, positioning, and implants(s) or special equipment if applicable. Patients LEFT Neck was cleansed and draped in the typical sterile fashion using Chloraprep. The Internal Jugular Vein and Carotid Artery were identified using ultrasound. The superficial tissue was anesthetized using 3.0 mL of 1% lidocaine without epinephrine under direct visualization with the ultrasound. After adequate anesthetization was achieved, the Internal Jugular vein was cannulated under direct ultrasound guidance using an introducer needle on a syringe. Good venous blood return was maintained prior to removal of syringe from introducer needle. Using Seldinger Technique, a guide wire was advanced through the introducer needle without resistance. The introducer needle was removed and ultrasound images were obtained of the guide wire within the Internal Jugular Vein and saved to the patients medical record. The dilator was advanced to the vessel without resistance and without the use of skin diana. The dilator was exchanged for the triple lumen catheter which was advanced into the vessel without resistance. The guide wire was removed intact from the catheter without issue. Claves were placed on each catheter tip with confirmation of good blood flow from each lumen. Each port was easily flushed with sterile saline. The catheter was placed at 20 cm and sutured in place. BioPatch was applied to the catheter and a sterile Tegaderm dressing was applied over the catheter with careful attention to sterility. Patient tolerated procedure well. No immediate compli cations were met. Post procedure x-ray was completed, placement was appropriate and no pneumothorax was noted. Images obtained are saved for permanent record Procedural Ultrasound Guidance: Procedure Date: 07/08/2019 Indication: Multiple medications, Poor peripheral access. Attending: Dr. Morelos APC: Gennaro Starkey PA-C Artery AND Vein visualized: YES Compressible Vein: YES Guidewire or Short Catheter seen in vein prior to dilation: YES Line confirmed in Vein with ultrasound: YES Images obtained are saved for permanent record. Coding CPT Codes Tubes, Drains, and Vasc Access - Tubes, Drains, and Vasc Access: [id number] Insertion Of Non-tunneled Catheter Age 5 Yrs> ([id number]) Tubes, Drains, and Vasc Access - Tubes, Drains, and Vasc Access: [id number] Ultrasound Guidance For Vascular ([id number]) [facility] [place] Codes (Charges) Tubes, Drains, and Vasc Access Procedure 3: Tubes, Drains, and Vasc Access: [id number] Insertion Of Non-tunneled Catheter Age 4 Yrs> Procedure 4: Tubes, Drains, and Vasc Access: [id number] Ultrasound Guidance For Vascular
[2019-07-08] MEDS: MIDAZOLAM HCL 125 MG/250 ML BAG IV SCH (06:45)
--- NOTE | 2019-07-08 06:46 | XRay Report ---
XR chest 1V portable CLINICAL HISTORY: s/p LEFT IJ COMPARISON STUDY: Chest radiograph July 08, 2019 3:18 AM. FINDINGS: Tip of the left internal jugular central line projects over the proximal SVC. Tip of endotr acheal tube is 3.4 cm above the cyrus. Tip of nasogastric tube is below the lower aspect of this marcia ge but at least within the body of the stomach. There is no pneumothorax. There is a trace left pleur al effusion. Median sternotomy wires. Cardiomegaly is again noted. Bibasilar consolidation has increa sed. There is pulmonary vascular congestion. IMPRESSION: 1. No pneumothorax following placement of a left internal jugular central line. 2. Increase in bibasilar consolidation which favors pneumonia or aspiration. 3. Cardiomegaly. Pulmonary vascular congestion without overt pulmonary edema. 4. Satisfactory positioning of lines and tubes. ACT 112: Negative or not required by law. Electronically signed by: Lauri Goldstein M.D. 07/08/2019 6:45 AM
--- NOTE | 2019-07-08 07:26 | XRay Report ---
XR chest 1V portable HISTORY: Shortness of breath. congestion COMPARISON: Chest 07/07/2019. FINDINGS: No pneumothorax. Trace bilateral pleural effusions. The heart remains mildly enlarged. Ther e are poststernotomy changes. Mild central pulmonary vascular congestion without overt edema. This johnson s improved in the interval. A few bibasilar linear densities favor subsegmental atelectasis. IMPRESSION: Interval improvement in the mild central pulmonary vascular congestion without overt edema. ACT 112: Negative or not required by law. Electronically signed by: Evan Ramos M.D. 07/08/2019 7:24 AM
[2019-07-08] MEDS: ALBUT/IPRATROP 3MG/0.5MG NEB 3 ML VIAL NEB SCH ×4 (07:44→20:03)
[2019-07-08] MEDS: BUDESONIDE 0.5 MG/2 ML VIAL (PULMICORT) NEB SCH ×2 (07:44→20:03)
[2019-07-08] MEDS ORDERED: PIPERACILLIN/TAZOBACTAM 4.5 GM in DEXTROSE 5% 100 ML IV SCH (10:00)
[2019-07-08] MEDS: ISOSORBIDE MONO EXTENDED REL 30 MG TABCR PO SCH (10:01)
[2019-07-08] MEDS: ENOXAPARIN INJ 40 MG/0.4 ML SYR SQ SCH (10:07)
[2019-07-08] MEDS: carvediloL 12.5 MG TAB PO SCH ×2 (10:07→21:26)
[2019-07-08] MEDS: CLOPIDOGREL BISULFATE 75 MG TAB PO SCH (10:07)
[2019-07-08] MEDS: PARoxetine HCL 10 MG TAB PO SCH (10:08)
[2019-07-08] MEDS: AMLODIPINE BESYLATE 5 MG TAB PO SCH (10:08)
[2019-07-08] MEDS: ATORVASTATIN 40 MG TAB PO SCH (10:08)
[2019-07-08] MEDS: ASPIRIN 81 MG ECTAB PO SCH (10:49)
[2019-07-08] MEDS: AMPICILLIN/SULBACTAM SOD 3,000 MG in 0.9 % SODIUM CHLORIDE 100 ML IV SCH ×3 (11:18→21:28)
[2019-07-08] MEDS: ASPIRIN 81 MG CHEW PO SCH (11:18)
[2019-07-08] MEDS: FAMOTIDINE 20 MG in SYRINGE 3 ML IV SCH (11:18)
[2019-07-08] MEDS: ACETAMINOPHEN SOLN 500 MG/15.62 ML UDP PO PRN (11:18)
[2019-07-08] MEDS: NOREPINEPHRINE BIT INJ 8 MG in DEXTROSE 5% 500 ML IV SCH ×2 (11:49→23:09)
[2019-07-08 11:56] LABS: iSTAT Art Bld Gas pCO2 Correct 33 mmHg (35-46); iSTAT Art Bld Gas pH Corrected 7.471 (7.35-7.45); iSTAT Arterial Blood Gas HCO3 24 meg/L (19-24); iSTAT Arterial Blood Gas pCO2 30 mmHg (35-46); iSTAT Arterial Blood Gas pH 7.51 (7.35-7.45); iSTAT Arterial Blood Gas pO2 64 mmHg (80-95); iSTAT Arterial Blood Gas pO2 C 76; iSTAT Carbon Dioxide 24 mmol/L (24-31); iSTAT FiO2 70 %; iSTAT Hematocrit 33 % (42-52); iSTAT Hemoglobin 11.2 g/dl (14.0-18.0); iSTAT Site Art Line; iSTAT Sodium 137 mmol/L (135-144)
--- NOTE | 2019-07-08 15:28 | Cardiology Progress Note ---
Date of Service July 08, 2019 Assessment & Plan (1) CAD (coronary artery disease): --Recent inferior NJ, Multivessel CAD, patent RCA stent 2. Acute respiratory failure, question aspiration pneumonia 3. Acute diastolic heart failureEF 50 to 55% with inferior akinesis 4. CKD/solitary kidney 5. Hypertension -- currently hypotensive on norepi 6. Asthma/COPD 7. Paroxysmal wide-complex tachycardia Troponin continues to trend down. Do not feel respiratory events secondary to recurrent ACS. Some degree of acute diastolic heart failure yesterday but diuresed well and minimal residual congestion on exam today. Renal function stable. Hypotensive this a.m. in the setting of fever, propofol and antihypertensives. Not secondary to cardiogenic shock. Continue DAPT with aspirin, clopidogrel Hold off on additional diuretics Continue to hold antihypertensives Continue high intensity statin No indication for intervention to residual circumflex disease at this time. Admission and Anticipated Discharge Date Admission Date: July 07, 2019 Subjective Patient with increasing respiratory distress overnight. No recurrent chest pain. worsening respiratory status after took evening pills with pudding. Earlier failed a speech study. ECG again with inferior Q waves/ST elevations, unchanged from prior. Troponins are downtrending now down to 7.1 Did receive Lasix x1 yesterday and negative more than 2 L. Started on broad-spectrum antibiotics, bronchodilators Patient had to be intubated overnight for hypoxic/hypercarbic respiratory failu re. This morning patient hypotensive after receiving a.m. blood pressure medicines requiring initiation of norepinephrine. Later febrile to 101.8 Review of Systems Review of Systems: Unobtainable due to endotracheal tube Physical Exam Physical Exam: General: Intubated, sedated HEENT: Pupils reactive Lungs: Lungs clear anteriorly Cardiac: Regular rate and rhythm, 2/6 systolic ejection murmur Abdomen: Soft, positive bowel sounds Extremities: Warm, well perfused. Ecchymosis at left radial artery access site. Pulse intact. Minimal lower extremity Neuro/psych: Intubated sedated Results & Data ([facility]) Vital Signs (Past 12 Hours) Vital Signs Temp Pulse Pulse Resp BP BP Pulse Ox 07/08/19 15:02 79 79 14 95 07/08/19 15:00 81 95 07/08/19 14:44 76 111/62 95 07/08/19 14:00 85 95 07/08/19 13:44 85 106/62 95 07/08/19 13:35 86 15 95 07/08/19 13:00 85 95 07/08/19 12:44 86 102/65 95 07/08/19 12:00 87 94 07/08/19 11:54 101.8 F H 07/08/19 11:44 85 78/52 L 94 07/08/19 11:41 14 07/08/19 11:15 89 20 94 07/08/19 11:00 90 94 07/08/19 10:44 91 H 96/63 L 95 07/08/19 10:00 103.1 F H 93 H 97 07/08/19 09:44 94 H 114/71 96 07/08/19 09:00 95 H 97 07/08/19 08:44 94 H 107/68 96 07/08/19 08:00 98.4 F 94 H 93 07/08/19 07:50 94 H 20 95 07/08/19 07:44 95 H 118/74 95 07/08/19 07:29 94 H 127/86 95 07/08/19 07:14 93 H 136/83 93 07/08/19 07:01 95 H 94 07/08/19 06:00 93 H 20 158/95 H 93 07/08/19 05:05 92 H 88 20 94/63 L 94 07/08/19 04:05 75 20 111/73 96 07/08/19 03:30 79 20 97 PG Care Time/CCT Total # of Minutes Spent Total Time Spent with Patient: Total time spent is greater than 50% in coordination of care (as documented) at patient's floor/unit and/or counseling patient: Coding Level of Care Code 52630 Subseq Hosp Care Lvl 3 Diagnoses CAD (coronary artery disease) I25.10
--- NOTE | 2019-07-08 16:07 | Palliative Care Progress Note ---
Date of Service July 08, 2019 Subjective Consult received. patient is intubated and sedated in ICU. No family at bedside, and patient's is hospitalized at this time. Per ICU, patient expected to be intubated for ~48 hours. We will continue to follow. Results & Data Vital Signs (Past 12 Hours) Vital Signs Coding Level of Care Code None
[2019-07-08] MEDS ORDERED: fentaNYL citrate 100 MCG/2 ML CARP IV ONE (19:44)
[2019-07-08] MEDS ORDERED: SUCCINYLCHOLINE CHLORIDE 20 MG/ML 10 ML VIAL IV ONE (19:44)
[2019-07-08] MEDS ORDERED: ETOMIDATE 2 MG/ML 20 ML VIAL IV ONE (19:44)
[2019-07-08] MEDS: TRAZODONE HCL 100 MG TAB PO SCH (21:27)
[2019-07-08 21:32] LABS: iSTAT Art Bld Gas pCO2 Correct 42 mmHg (35-46); iSTAT Art Bld Gas pH Corrected 7.436 (7.35-7.45); iSTAT Arterial Blood Gas HCO3 28 meg/L (19-24); iSTAT Arterial Blood Gas pCO2 42 mmHg (35-46); iSTAT Arterial Blood Gas pH 7.44 (7.35-7.45); iSTAT Arterial Blood Gas pO2 83 mmHg (80-95); iSTAT Arterial Blood Gas pO2 C 85; iSTAT Carbon Dioxide 29 mmol/L (24-31); iSTAT FiO2 60 %; iSTAT Hematocrit 34 % (42-52); iSTAT Hemoglobin 11.6 g/dl (14.0-18.0); iSTAT Potassium 4.6 mmol/L (3.3-5.0); iSTAT Site Art Line; iSTAT Sodium 137 mmol/L (135-144)
--- NOTE | 2019-07-08 22:19 | Hospitalist Progress Note ---
Date of Service July 08, 2019 Assessment & Plan (1) Acute on chronic respiratory failure with hypoxia and hypercapnia: Patient appears to have developed acute hypercapnic and hypoxic respiratory failure. This appears to be multifactorial: given obesity, diastolic CHF, history of emphysema, and likely aspiration pneumonitis. Patient was strict NPO yesterday (thanks to the speech eval), however patient was noncompliant and having crackers. Patient also speech eval and showed he was not tolerating his pudding given for his examination. It appears this hypercapnic respiratory failure gradually worsened during this hospital stay. Patient had to be transferred to the ICU for intubation as ABG was showing hypercapnea. Patient did not respond to IV lasix for acute diastolic CHF. Placed on antibiotics for possible aspiration pneumonitis (2) Acute diastolic (congestive) heart failure: Cardio consulted. Appreciate input (3) CAD (coronary artery disease): Patient underwent cardiac catheterization earlier today with Dr. Everett. Please see his full report. Patient's newly placed RCA stent was widely patent. Plan will be to continue antiplatelet therapy as previously prescribed. Patient will be monitored overnight and we will recheck troponin. Tentative plan for discharge the morning once cleared by cardiology. In addition, I do not see statin on his medication list and will order Lipitor 40 mg daily. (4) HTN (hypertension): Patient is blood pressure is borderline. Will continue amlodipine 10 mg and Cardura 1 mg nightly. will continue to monitor (5) Emphysema of lung: Per history, patient apparently has a history of hypercapnic respiratory failure secondary to COPD. Will order a home O2 evaluation prior to his discharge with possible addition of home oxygen. Admission and Anticipated Discharge Date Admission Date: July 07, 2019 Subjective 68 YO male is intubated and sedated Review of Systems Review of Systems: Unobtainable due to endotracheal tube Physical Exam Physical Exam: Constitutional: Patient is intubated and sedated Neck: trachea midline, no thyromegaly Respiratory: normal respiratory effort Auscultation: bilateral wheezing heard. Cardiovascular: Rate/Rhythm: regular rate and regular rhythm Heart Sounds: normal S1 and normal S2 Gastrointestinal (Abdomen): Inspection/Auscultation: abdomen normal to inspection Percussion/Palpation: abdomen soft; abdomen nontender, no guarding, abdomen not rigid and no hepatosplenomegaly Musculoskeletal: Patient has some ecchymosis right left, presumably from his previous cardiac catheterization. Skin: no rashes, warm and dry Results [facility] Data ([facility]) Vital Signs (Past 12 Hours) Vital Signs Temp Pulse Pulse Resp BP Pulse Ox 07/08/19 20:08 77 14 94 07/08/19 20:05 77 07/08/19 18:30 77 95 07/08/19 18:04 75 14 95 07/08/19 18:00 79 95 07/08/19 17:44 76 122/74 96 07/08/19 17:30 75 96 07/08/19 17:00 75 96 07/08/19 16:44 76 118/66 96 07/08/19 16:30 78 96 07/08/19 16:03 37.8 C H 78 114/61 07/08/19 15:44 79 112/64 95 07/08/19 15:02 79 79 14 95 07/08/19 15:00 81 95 07/08/19 14:44 76 111/62 95 07/08/19 14:00 85 95 07/08/19 13:44 85 106/62 95 07/08/19 13:35 86 15 95 07/08/19 13:00 85 95 07/08/19 12:44 86 102/65 95 07/08/19 12:00 87 94 07/08/19 11:54 38.8 C H 07/08/19 11:44 85 78/52 L 94 07/08/19 11:41 14 07/08/19 11:15 89 20 94 07/08/19 11:00 90 94 07/08/19 10:44 91 H 96/63 L 95 PG Care Time/CCT Total # of Minutes Spent Total Time Spent with Patient: Total time spent is greater than 50% in coordination of care (as documented) at patient's floor/unit and/or counseling patient: Coding Level of Care Code 56381 Subseq Hosp Care Lvl 3 Diagnoses Acute on chronic respiratory failure with hypoxia and hypercapnia J96.21; J96.22 Acute diastolic (congestive) heart failure I50.31 CAD (coronary artery disease) I25.10 HTN (hypertension) I10 Hypertension type: unspecified Emphysema of lung J43.9 Time Spent (min) 40 (1) HTN (hypertension) Hypertension type: unspecified Qualified Code(s): I10 - Essential (primary) hypertension
[2019-07-08] MEDS ORDERED: VANCOMYCIN HCL 1,500 MG in SODIUM CHLORIDE 0.9% 500 ML IV SCH (23:00)
[2019-07-09 04:19] LABS: Basophils # (auto) 0.01 K/uL (0-0.2); Basophils % (auto) 0.1 %; Eosinophils # (auto) 0.07 K/uL (0-0.5); Eosinophils % (auto) 0.5 %; Hematocrit (blood only) 34.7 % (42-52); Hemoglobin 11.6 g/dL (14.0-18.0); Immature Granulocytes # (auto) 0.03 K/uL (0.00-0.02); Immature Granulocytes % (auto) 0.2 %; Lymphocytes # (auto) 1.14 K/uL (1.2-3.4); Lymphocytes % (auto) 8.4 %; Mean Corpuscular Hemoglobin 30.7 pg (25-34); Mean Corpuscular Hgb Conc 33.4 g/dL (32-36); Mean Corpuscular Volume 91.8 fL (80-100); Mean Platelet Volume 9.9 fL (7.4-10.4); Monocytes # (auto) 0.97 K/uL (0.11-0.59); Monocytes % (auto) 7.1 %; Neutrophils # (auto) 11.41 K/uL (1.4-6.5); Neutrophils % (auto) 83.7 %; Platelet Count 174 K/uL (130-400); RDW Coefficient of Variation 15.4 % (11.5-14.5); RDW Standard Deviation 51.9 fL (36.4-46.3); Red Blood Count 3.78 M/uL (4.7-6.1); White Blood Count 13.63 K/uL (4.8-10.8)
[2019-07-09 04:39] LABS: BUN Creatinine Ratio 18.6 (10-20); Bilirubin Direct 0.6 mg/dl (0-0.2); Creatinine Clr Calc Pharmacy 39.8 ml/min; Est GFR (African American) 39.8; Est GFR (Non-African American) 34.3; Potassium 4.1 mmol/L (3.5-5.1)
[2019-07-09 04:47] LABS: Bilirubin,Total 1.2 mg/dl (0.2-1); Phosphorus 3.1 mg/dl (2.5-4.9); Total Protein 6.2 gm/dl (6.4-8.2); Troponin I 4.55 ng/ml (0-0.045)
[2019-07-09] MEDS: AMPICILLIN/SULBACTAM SOD 3,000 MG in 0.9 % SODIUM CHLORIDE 100 ML IV SCH ×4 (04:49→23:22)
[2019-07-09 05:40] LABS: iSTAT Art Bld Gas pCO2 Correct 44 mmHg (35-46); iSTAT Art Bld Gas pH Corrected 7.417 (7.35-7.45); iSTAT Arterial Blood Gas HCO3 28 meg/L (19-24); iSTAT Arterial Blood Gas pCO2 39 mmHg (35-46); iSTAT Arterial Blood Gas pH 7.45 (7.35-7.45); iSTAT Arterial Blood Gas pO2 84 mmHg (80-95); iSTAT Arterial Blood Gas pO2 C 98; iSTAT Carbon Dioxide 29 mmol/L (24-31); iSTAT FiO2 70 %; iSTAT Hematocrit 33 % (42-52); iSTAT Hemoglobin 11.2 g/dl (14.0-18.0); iSTAT Site Art Line; iSTAT Sodium 138 mmol/L (135-144)
[2019-07-09] MEDS: ALBUT/IPRATROP 3MG/0.5MG NEB 3 ML VIAL NEB SCH ×4 (07:01→20:33)
[2019-07-09] MEDS: BUDESONIDE 0.5 MG/2 ML VIAL (PULMICORT) NEB SCH ×2 (07:01→20:33)
--- NOTE | 2019-07-09 07:37 | XRay Report ---
XR chest 1V portable CLINICAL HISTORY: Respiratory failure COMPARISON STUDY: 07/08/2019 FINDINGS: There are postsurgical changes of a midline sternotomy. There is a nasogastric tube which p asses into the stomach. There is an endotracheal tube positioned 4 cm above the cyrus. There is a le ft internal jugular central venous catheter unchanged in position. There is resolving pulmonary vascu lar congestion. There is a persistent focal airspace opacity at the right medial lung base suspicious for pneumonia. There is a suspected trace left pleural effusion.[ IMPRESSION: 1. Resolving pulmonary vascular congestion 2. Persistent airspace opacity at the right medial lung base ACT 112: Negative or not required by law. Electronically signed by: Gianni Hunt M.D. 07/09/2019 7:35 AM
[2019-07-09] MEDS: MIDAZOLAM HCL 125 MG/250 ML BAG IV SCH (07:48)
--- NOTE | 2019-07-09 08:03 | XRay Report ---
XR chest 1V portable HISTORY: S/P INTUBATION COMPARISON: Chest 07/08/2019. FINDINGS: No pneumothorax. Trace bilateral pleural effusions. The heart remains mildly enlarged. Inte rval placement of an endotracheal tube which terminates 1.9 cm from the cyrus. The nasogastric tube terminates below the diaphragm. The tip is not included on this study. Slight progression of the pulm onary vascular congestion. Bibasilar densities persist and favor subsegmental atelectasis. IMPRESSION: 1. Satisfactory support line placement. 2. Interval progression of the pulmonary vascular congestion. ACT 112: Negative or not required by law. Electronically signed by: Evan Ramos M.D. 07/08/2019 7:26 AM
[2019-07-09] MEDS: PARoxetine HCL 10 MG TAB PO SCH (08:11)
[2019-07-09] MEDS: CLOPIDOGREL BISULFATE 75 MG TAB PO SCH (08:12)
[2019-07-09] MEDS: ATORVASTATIN 40 MG TAB PO SCH (08:12)
[2019-07-09] MEDS: carvediloL 12.5 MG TAB PO SCH ×2 (08:12→22:22)
[2019-07-09] MEDS: FAMOTIDINE 20 MG in SYRINGE 3 ML IV SCH (08:13)
[2019-07-09] MEDS: AMLODIPINE BESYLATE 5 MG TAB PO SCH (08:14)
[2019-07-09] MEDS: ASPIRIN 81 MG CHEW PO SCH (08:18)
[2019-07-09] MEDS: ENOXAPARIN INJ 40 MG/0.4 ML SYR SQ SCH (08:23)
--- NOTE | 2019-07-09 08:56 | Billing Data ---
Date of Service July 09, 2019 Coding Level of Care Code Critical Care 1st - mins
[2019-07-09] MEDS ORDERED: ACETAMINOPHEN SOLN 160 MG/5 ML BTL PO PRN (09:15)
[2019-07-09] MEDS: ACETAMINOPHEN SOLN 500 MG/15.62 ML UDP PO PRN (09:41)
--- NOTE | 2019-07-09 09:45 | Cardiology Progress Note ---
Date of Service July 09, 2019 Assessment & Plan (1) CAD (coronary artery disease): --Recent inferior HI, Multivessel CAD, patent RCA stent on repeat cath 2. Acute respiratory failure, ?aspiration pneumonia 3. Diastolic heart failureEF 50-55% with inferior akinesis 4. CKD/solitary kidney 5. Hypertension 6. Asthma/COPD 7. Paroxysmal wide-complex tachycardia Patient remains sedated, intubated. Troponin continues to trend down, do not reel respiratory failure secondary to ACS. Hemodynamically stable. No significant congestion on exam today. Continue DAPT with aspirin, clopidogrel Hold off on additional diuretics, monitor volume status closely Continue high intensity statin No indication for intervention to residual circumflex disease at this time Admission and Anticipated Discharge Date Admission Date: July 07, 2019 Subjective Patient remains intubated and sedated in ICU. No family at bedside, and patient's is hospitalized at this time. BP improved. Troponin continues to trend down. -2.7 L yesterday after IV Lasix. Review of Systems Review of Systems: Unobtainable due to endotracheal tube Physical Exam Physical Exam: General: Intubated, sedated HEENT: Pupils reactive Lungs: Course breath sounds. Cardiac: Regular rate and rhythm, 2/6 systolic ejection murmur Abdomen: Soft, positive bowel sounds Extremities: Warm, well perfused. Pulses intact. Ecchymosis at left radial artery access site. Trace lower extremity edema. Neuro/psych: Intubated sedated Results & Data ([facility]) Vital Signs (Past 12 Hours) Vital Signs Pulse Resp BP Pulse Ox 07/09/19 07:00 91 H 15 96 07/09/19 04:55 88 17 96 07/09/19 04:21 87 07/09/19 04:00 88 97 07/09/19 03:44 91 H 124/77 96 07/09/19 03:00 94 H 95 07/09/19 02:44 89 115/67 94 07/09/19 02:27 88 143/92 H 94 07/09/19 02:00 86 95 07/09/19 01:52 84 15 88 L 07/09/19 01:44 97 H 143/92 H 96 07/09/19 01:00 81 92 07/09/19 00:44 79 114/69 92 07/09/19 00:00 81 92 07/08/19 23:44 81 114/75 93 07/08/19 23:25 79 14 93 07/08/19 23:00 83 94 07/08/19 22:44 80 114/73 95 07/08/19 22:00 80 94 07/08/19 21:44 82 106/67 94 ECG Additional Comments: EKG sinus rhythm, inferior infarct, lateral ST depression PG Care Time/CCT Total # of Minutes Spent Total Time Spent with Patient: Total time spent is greater than 50% in coordination of care (as documented) at patient's floor/unit and/or counseling patient: Coding Level of Care Code 45390 Subseq Hosp Care Lvl 2 Diagnoses CAD (coronary artery disease) I25.10
--- NOTE | 2019-07-09 15:58 | Procedure Note ---
Procedure Note: Bronchoscopy Procedure Procedure date: July 09, 2019 Procedure: fiberoptic bronchoscopy Pre-procedure indication: Hypoxic hypercarbic respiratory failure, pulmonary infiltrate Post-procedure Diagnosis: same as above Prior to Procedure: Informed Consent: The risks, benefits, indications, potential complications, and alternatives were explained to the patient's and informed consent obtained. Attending Staff: Jennifer Morelos DO Resident/APC: Not applicable Skin Prep: Not applicable Anesthesia: Continuous infusion The identity of the patient was confirmed and a bedside time out was performed. Description of Procedure: Fiberoptic bronchoscopy was performed via endotracheal tube. Bronchioalveolar lavage right lower lobe was performed. Findings included: Significant tenacious mucopurulent secretions of the right lower lobe and right middle lobe. Very significant excessive dynamic airway collapse with total obliteration of lumen posterior wall touching the anterior wall. Complications: None Specimens: Bronchial washings sent for culture and Gram stain, cytology, fungal elements, and AFB stain and culture. Estimated blood loss: Zero
--- NOTE | 2019-07-09 18:33 | Electrocardiogram Report ---
Test Reason : Blood Pressure : / mmHG Vent. Rate : 094 BPM Atrial Rate : 094 BPM P-R Int : 130 ms QRS Dur : 090 ms QT Int : 346 ms P-R-T Axes : 058 062 059 degrees QTc Int : 432 ms Normal sinus rhythm Inferior infarct Nonspecific ST abnormality Abnormal ECG When compared with ECG of 08-JUL-2019 02:20, (unconfirmed) Premature atrial complexes are no longer Present ST no longer elevated in Inferior leads ST more depressed Lateral leads Confirmed by Alek Osman ([id number]) on 07/09/2019 6:32:55 PM Referred By: REFERRED SELF Confirmed By:Tushar Osman
--- NOTE | 2019-07-09 18:41 | Electrocardiogram Report ---
Test Reason : Blood Pressure : / mmHG Vent. Rate : 079 BPM Atrial Rate : 079 BPM P-R Int : 146 ms QRS Dur : 102 ms QT Int : 396 ms P-R-T Axes : 054 037 052 degrees QTc Int : 454 ms Sinus rhythm with Premature atrial complexes Inferior infarct (cited on or before 17-MAR-2019) ACUTE ID / STEMI Consider right ventricular involvement in acute inferior infarct Abnormal ECG When compared with ECG of 06-JUL-2019 14:48, T wave inversion no longer evident in Lateral leads Confirmed by Alek Osman ([id number]) on 07/09/2019 6:40:45 PM Referred By: REFERRED SELF Confirmed By:Tushar Osman
--- NOTE | 2019-07-09 18:47 | Critical Care Progress Note ---
Date of Service July 09, 2019 Assessment & Plan (1) Acute on chronic respiratory failure with hypoxia and hypercapnia: Reason Critically Ill: 68-year-old male in acute on chronic hypoxic respiratory failure with hypercapnia and somnolent state requiring intubation for airway protection. 24 hour events: Patient continues to be mechanically ventilated. Bedside bronchoscopy performed today. cultures obtained. Antibiotics deescalated to ampicillin/sulbactam. Troponin have trended down. ST segment elevations no longer present on EKG. NEURO - CAM ICU: negative Sedation: Midazolam * Altered mental status: Likely metabolic encephalopathy in the setting of acute CO2 narcosis. Patient does follow simple commands. No focal deficits at this time. Consider brain imaging after patient resuscitated. CARDIAC/VASCULAR - * CAD - patient with recent PCI with ATA placement x 3 (5 days ago) at [facility]. Cath on admission showing patent stents, and stable disease. No new stents deployed. etiology likely secondary to demand ischemia in the setting of aspiration PNA - EKG on admission showing ST segment elevations; repeat EKG showing resolution of elevations. - troponin elevated on admission, has since trended down. - ECHO 07/08 was a technically limited study but showed normal LV systolic function without wall motion abnormalities - continue cardiac monitoring - continue high intensity statin, baby aspirin, plavix, carvediolol 12.5mg BID, amlodipine 10mg qAM RESPIRATORY - * Acute on chronic hypoxic respiratory failure with hypercapnia: currently ventilated, assist control 14/500/8/60. thought to be secondary to COPD with acute aspiration event. - bronchoscopy today, cultures obtained. - ABG showing pH of 7.45, bicarb 27, pCO2 39. - continue IV amp/sulbactam - continue home COPD inhalers GI/NUTRITION - * N.p.o. * OG in place. * pepcid for stress ulcer ppx. RENAL/LYTES - * Baseline creatinine in the status post nephrectomy patient (1.94) * electrolytes WNL - * Pruitt in place - Strict I&Os. ENDO - * No known history of diabetes or thyroid disease. * BSGs per unit protocol. ISS --> gtt per unit policy. HEME * Stable H&H. ID - * Aspiration pneumonia: continue ampicillin/sulbactam - WBC down from 16 to 13. Lactate normal. - vanc and zosyn discontinued - bronch today, cultures obtained, showing no growth to date - blood cultures showing no growth to date - Nasal MRSA negative LINES/IV ACCESS - * PIVs x2 * LEFT IJ * RIGHT radial arterial line * ET tube * Pruitt catheter DVT PROPHYLAXIS - * Lovenox * SCDs Admission and Anticipated Discharge Date Admission Date: July 07, 2019 Supervising Physician Co-Signing Physician Notes Dr. Liu was resident physician during care of patient. I separately evaluated patient for mak portions of the history and the exam. I was present during the critical portion of medical decision making, and I discussed the case with the resident. I generally agree with the findings and plan. Patient was discussed in multidisciplinary rounds, eventually we were able to wean off the vasoactive medication, bronchoscopy completed today. I updated the patient's . Blood cultures remain negative, transition from Zosyn to Unasyn for aspiration pneumonia coverage I do not feel the Pseudomonas coverage is required. Still has rather robust ventilator requirements continued mechanical ventilation. Subjective Patient in ICU. Family members present at bedside. Review of Systems Review of Systems: Unobtainable due to endotracheal tube Physical Exam Constitutional: WD/WN, vitals as above + obese and + mechanically ventilated Eyes: + anicteric sclerae ENMT: external ear and nose normal, oropharynx normal Neck: normal visual inspection and trachea midline Respiratory: Auscultation: + rhonchi and + wheezes Cardiovascular: RRR, no murmur, no edema Heart Sounds: normal S1 and normal S2 Gastrointestinal (Abdomen): normal bowel sounds, soft, nontender, no hepatosplenomegaly Skin: no rashes, warm and dry Genitourinary: pruitt catheter in place draining yellow colored urine Results & Data ([facility]) Vital Signs (Past 12 Hours) Vital Signs Temp Pulse Pulse Resp BP Pulse Ox 07/09/19 18:15 78 94 07/09/19 18:03 78 101/63 94 07/09/19 18:00 78 94 07/09/19 17:45 78 94 07/09/19 17:33 77 100/63 94 07/09/19 17:30 78 94 07/09/19 17:15 77 93 07/09/19 17:03 79 104/66 93 07/09/19 17:00 78 93 07/09/19 16:45 82 93 07/09/19 16:33 78 96/61 L 94 07/09/19 16:30 78 14 94 07/09/19 16:15 77 95 07/09/19 16:03 74 98/63 L 96 07/09/19 16:00 37.3 C 73 96 07/09/19 15:45 78 95 07/09/19 15:32 79 95/62 L 95 07/09/19 15:30 78 95 07/09/19 15:15 79 96 07/09/19 15:02 81 99/62 L 96 07/09/19 15:00 79 95 07/09/19 14:32 79 92/62 L 95 07/09/19 14:30 80 95 07/09/19 14:02 81 94/61 L 95 07/09/19 14:00 81 14 94 07/09/19 13:32 82 89/60 L 95 07/09/19 13:30 81 95 07/09/19 13:02 82 88/61 L 94 07/09/19 13:00 83 94 07/09/19 12:32 84 90/58 L 94 07/09/19 12:30 38.3 C H 86 94 07/09/19 12:23 14 07/09/19 12:03 82 91/62 L 94 07/09/19 12:00 87 94 07/09/19 11:31 87 136/91 97 07/09/19 11:29 88 141/91 H 97 07/09/19 11:27 86 117/89 94 07/09/19 11:00 84 94 07/09/19 10:44 85 89/61 L 94 07/09/19 10:40 85 85 14 94 07/09/19 10:30 84 94 07/09/19 10:00 86 94 07/09/19 09:46 87 94 07/09/19 09:44 86 106/66 94 07/09/19 09:30 86 94 07/09/19 09:15 88 94 07/09/19 09:00 91 H 94 07/09/19 08:46 92 H 97 07/09/19 08:44 94 H 119/73 97 07/09/19 08:30 39 C H 96 H 95 07/09/19 08:15 96 H 95 07/09/19 08:00 96 H 96 07/09/19 07:46 95 H 96 07/09/19 07:44 93 H 111/73 96 07/09/19 07:30 94 H 95 07/09/19 07:15 93 H 95 07/09/19 07:00 101 H 85 14 96 Critical Care Time Critical Care Time: Yes Total Critical Care Time: 45 I have personally spent 45 minutes of critical care time in the direct laurie gement of this patient. This is a life/limb threatening event. This includes time spent evaluating patient, direct bedside care, chart review, placing orders, interpretation of diagnostic studies, discussion with consultants, patient, and/or family members regarding treatment decisions, as well as other required patient management activities. This time is exclusive of all separately billable procedures, and teaching time and separate from and in addition to any other critical care service time. Resident Activity Tracking Resident Involvement: Resident Care Provided Care Provided: Adult Hospital Medicine
[2019-07-09] MEDS: TRAZODONE HCL 100 MG TAB PO SCH (22:24)
--- NOTE | 2019-07-09 22:24 | Hospitalist Progress Note ---
Date of Service July 09, 2019 Assessment & Plan (1) Acute on chronic respiratory failure with hypoxia and hypercapnia: Patient appears to have developed acute hypercapnic and hypoxic respiratory failure. This appears to be multifactorial: given obesity, diastolic CHF, history of emphysema, and likely aspiration pneumonitis. Patient was strict NPO yesterday (thanks to the speech eval), however patient was noncompliant and having crackers. Patient also speech eval and showed he was not tolerating his pudding given for his examination. It appears this hypercapnic respiratory failure gradually worsened during this hospital stay. Patient had to be transferred to the ICU for intubation as ABG was showing hypercapnea. Patient did not respond to IV lasix for acute diastolic CHF. Placed on antibiotics for possible aspiration pneumonitis. Patient remains intubated on 07/09 Patient on norepi drip. (2) Acute diastolic (congestive) heart failure: Cardio consulted. Appreciate input (3) CAD (coronary artery disease): Patient underwent cardiac catheterization earlier today with Dr. Everett. Please see his full report. Patient's newly placed RCA stent was widely patent. Plan will be to continue antiplatelet therapy as previously prescribed. Patient will be monitored overnight and we will recheck troponin. Tentative plan for discharge the morning once cleared by cardiology. In addition, I do n ot see statin on his medication list and will order Lipitor 40 mg daily. (4) HTN (hypertension): Patient is blood pressure is borderline. Will continue amlodipine 10 mg and Cardura 1 mg nightly. will continue to monitor (5) Emphysema of lung: Per history, patient apparently has a history of hypercapnic respiratory failure secondary to COPD. Will order a home O2 evaluation prior to his discharge with possible addition of home oxygen. Admission and Anticipated Discharge Date Admission Date: July 07, 2019 Subjective 68 yo male is intubated. Review of Systems Review of Systems: Unobtainable due to endotracheal tube Physical Exam Physical Exam: Constitutional: Patient is intubated and sedated Neck: trachea midline, no thyromegaly Respiratory: normal respiratory effort Auscultation: bilateral wheezing heard. Cardiovascular: Rate/Rhythm: regular rate and regular rhythm Heart Sounds: normal S1 and normal S2 Gastrointestinal (Abdomen): Inspection/Auscultation: abdomen normal to inspection Percussion/Palpation: abdomen soft; abdomen nontender, no guarding, abdomen not rigid and no hepatosplenomegaly Musculoskeletal: Patient has some ecchymosis right left, presumably from his previous cardiac catheterization. Skin: no rashes, warm and dry Results & Data ([facility]) Vital Signs (Past 12 Hours) Vital Signs Temp Pulse Pulse Resp BP Pulse Ox 07/09/19 20:37 77 14 95 07/09/19 18:15 78 94 07/09/19 18:03 78 101/63 94 07/09/19 18:00 78 94 07/09/19 17:45 78 94 07/09/19 17:33 77 100/63 94 07/09/19 17:30 78 94 07/09/19 17:15 77 93 07/09/19 17:03 79 104/66 93 07/09/19 17:00 78 93 07/09/19 16:45 82 93 07/09/19 16:33 78 96/61 L 94 07/09/19 16:30 78 14 94 07/09/19 16:15 77 95 07/09/19 16:03 74 98/63 L 96 07/09/19 16:00 37.3 C 73 96 07/09/19 15:45 78 95 07/09/19 15:32 79 95/62 L 95 07/09/19 15:30 78 95 07/09/19 15:15 79 96 07/09/19 15:02 81 99/62 L 96 07/09/19 15:00 79 95 07/09/19 14:32 79 92/62 L 95 07/09/19 14:30 80 95 07/09/19 14:02 81 94/61 L 95 07/09/19 14:00 81 14 94 07/09/19 13:32 82 89/60 L 95 07/09/19 13:30 81 95 07/09/19 13:02 82 88/61 L 94 07/09/19 13:00 83 94 07/09/19 12:32 84 90/58 L 94 07/09/19 12:30 38.3 C H 86 94 07/09/19 12:23 14 07/09/19 12:03 82 91/62 L 94 07/09/19 12:00 87 94 07/09/19 11:31 87 136/91 97 07/09/19 11:29 88 141/91 H 97 07/09/19 11:27 86 117/89 94 07/09/19 11:00 84 94 07/09/19 10:44 85 89/61 L 94 07/09/19 10:40 85 85 14 94 07/09/19 10:30 84 94 PG Care Time/CCT Total # of Minutes Spent Total Time Spent with Patient: Total time spent is greater than 50% in coordination of care (as documented) at patient's floor/unit and/or counseling patient: Coding Level of Care Code 91749 Subseq Hosp Care Lvl 2 Diagnoses Acute on chronic respiratory failure with hypoxia and hypercapnia J96.21; J96.22 Acute diastolic (congestive) heart failure I50.31 CAD (coronary artery disease) I25.10 HTN (hypertension) I10 Hypertension type: unspecified Emphysema of lung J43.9 Time Spent (min) 25 (1) HTN (hypertension) Hypertension type: unspecified Qualified Code(s): I10 - Essential (primary) hypertension
[2019-07-10 04:45] LABS: Basophils # (auto) 0.01 K/uL (0-0.2); Basophils % (auto) 0.1 %; Eosinophils # (auto) 0.13 K/uL (0-0.5); Eosinophils % (auto) 1.2 %; Hematocrit (blood only) 33.1 % (42-52); Hemoglobin 10.8 g/dL (14.0-18.0); Immature Granulocytes # (auto) 0.04 K/uL (0.00-0.02); Immature Granulocytes % (auto) 0.4 %; Lymphocytes # (auto) 1.14 K/uL (1.2-3.4); Lymphocytes % (auto) 10.5 %; Mean Corpuscular Hemoglobin 30.1 pg (25-34); Mean Corpuscular Hgb Conc 32.6 g/dL (32-36); Mean Corpuscular Volume 92.2 fL (80-100); Mean Platelet Volume 9.8 fL (7.4-10.4); Monocytes # (auto) 0.68 K/uL (0.11-0.59); Monocytes % (auto) 6.2 %; Neutrophils % (auto) 81.6 %; Platelet Count 182 K/uL (130-400); RDW Coefficient of Variation 15.6 % (11.5-14.5); Red Blood Count 3.59 M/uL (4.7-6.1)
[2019-07-10 04:51] LABS: Base Excess ABG 1.7 mEq/L (-9-1.8); HCO3 ABG 25 mmol/L (19-24); Oxygen Saturation ABG 94.4 % (90-95); PCO2 ABG 37 mmHg (35-46); PO2 ABG 66 mmHg (80-95); pH ABG 7.46 (7.35-7.45)
[2019-07-10 04:52] LABS: Allen Test Pos (Pos)
[2019-07-10] MEDS: AMPICILLIN/SULBACTAM SOD 3,000 MG in 0.9 % SODIUM CHLORIDE 100 ML IV SCH ×4 (05:02→22:34)
[2019-07-10 05:09] LABS: BUN Creatinine Ratio 20.9 (10-20); Calcium 8.2 mg/dl (8.5-10.1); Creatinine Clr Calc Pharmacy 31.5 ml/min; Est GFR (African American) 29.8; Est GFR (Non-African American) 25.7; Magnesium 2.4 mg/dl (1.8-2.4); Potassium 3.9 mmol/L (3.5-5.1)
[2019-07-10 05:11] LABS: Phosphorus 4.2 mg/dl (2.5-4.9)
[2019-07-10] MEDS: CLOPIDOGREL BISULFATE 75 MG TAB PO SCH (07:49)
[2019-07-10] MEDS: PARoxetine HCL 10 MG TAB PO SCH (07:49)
[2019-07-10] MEDS: ATORVASTATIN 40 MG TAB PO SCH (07:50)
[2019-07-10] MEDS: carvediloL 12.5 MG TAB PO SCH (07:50)
[2019-07-10] MEDS: ENOXAPARIN INJ 40 MG/0.4 ML SYR SQ SCH (07:54)
[2019-07-10] MEDS: ASPIRIN 81 MG CHEW PO SCH (07:54)
[2019-07-10] MEDS: ALBUT/IPRATROP 3MG/0.5MG NEB 3 ML VIAL NEB SCH ×4 (07:55→19:09)
[2019-07-10] MEDS: BUDESONIDE 0.5 MG/2 ML VIAL (PULMICORT) NEB SCH ×2 (07:55→19:10)
--- NOTE | 2019-07-10 09:28 | XRay Report ---
SINGLE VIEW CHEST CLINICAL HISTORY: Respiratory failure. FINDINGS: An AP, portable, upright chest radiograph is compared to study dated 07/09/2019. The examina tion is degraded by portable technique and patient rotation. The patient is status post midline frias otomy. An endotracheal tube, an enteric tube, and a left internal jugular central venous catheter are unchanged in position. The heart is enlarged noting atherosclerotic calcification of the thoracic ao rta. The pulmonary vasculature is noncongested. Bibasilar airspace consolidation is noted with trace pleural effusions. No pneumothorax is seen. The skeletal structures are osteopenic. The bony thorax i s grossly intact. IMPRESSION: 1. Stable lines and tubes. 2. Cardiomegaly without radiographic evidence of congestive failure. 3. There is bibasilar airspace consolidation. This could represent atelectasis versus pneumonia/aspir ation pneumonitis. Clinical correlation will be required. 4. Trace pleural effusions. ACT 112: Negative or not required by law. Electronically signed by: Timmy Moreau M.D. 07/10/2019 9:27 AM
[2019-07-10] MEDS: FAMOTIDINE 20 MG in SYRINGE 3 ML IV SCH (09:54)
[2019-07-10] MEDS: AMLODIPINE BESYLATE 5 MG TAB PO SCH (11:21)
--- NOTE | 2019-07-10 12:49 | Electrocardiogram Report ---
Test Reason : Blood Pressure : / mmHG Vent. Rate : 074 BPM Atrial Rate : 074 BPM P-R Int : 132 ms QRS Dur : 090 ms QT Int : 396 ms P-R-T Axes : 052 041 -25 degrees QTc Int : 439 ms Normal sinus rhythm Inferior infarct (cited on or before 17-MAR-2019) T wave abnormality, consider lateral ischemia Abnormal ECG When compared with ECG of 09-JUL-2019 07:52, T wave inversion now evident in Anterior leads Confirmed by Refugio Nicholson ([id number]) on 07/10/2019 12:49:43 PM Referred By: REFERRED SELF Confirmed By:Refugio Nicholson
[2019-07-10 14:32] LABS: iSTAT Art Bld Gas pCO2 Correct 44 mmHg (35-46); iSTAT Art Bld Gas pH Corrected 7.396 (7.35-7.45); iSTAT Arterial Blood Gas HCO3 27 meg/L (19-24); iSTAT Arterial Blood Gas pCO2 43 mmHg (35-46); iSTAT Arterial Blood Gas pO2 69 mmHg (80-95); iSTAT Arterial Blood Gas pO2 C 70; iSTAT Carbon Dioxide 28 mmol/L (24-31); iSTAT FiO2 50 %; iSTAT Hematocrit 30 % (42-52); iSTAT Hemoglobin 10.2 g/dl (14.0-18.0); iSTAT Potassium 3.8 mmol/L (3.3-5.0); iSTAT Site Art Line; iSTAT Sodium 140 mmol/L (135-144)
[2019-07-10] MEDS: MIDAZOLAM HCL 125 MG/250 ML BAG IV SCH (16:23)
--- NOTE | 2019-07-10 16:38 | Critical Care Progress Note ---
Date of Service July 10, 2019 Assessment & Plan (1) Acute on chronic respiratory failure with hypoxia and hypercapnia: Acute on chronic respiratory failure with hypoxia and hypercapnia: Reason Critically Ill: 68-year-old male in acute on chronic hypoxic respiratory failure with hypercapnia and somnolent state requiring intubation for airway protection. NEURO - CAM ICU: negative Sedation: Midazolam secondary to hypotension, discontinued propofol, fentanyl -Discontinuing sedatives CARDIAC/VASCULAR - CAD - patient with recent PCI with ATA placement x 3 (5 days ago) at [facility]. Cath on admission showing patent stents, and stable disease. No new stents deployed. etiology likely secondary to demand ischemia in the setting of aspiration PNA - EKG on admission showing ST segment elevations; repeat EKG showing resolution of elevations. - ECHO 07/08 was a technically limited study but showed normal LV systolic function without wall motion abnormalities - continue cardiac monitoring - continue high intensity statin, baby aspirin, plavix, carvediolol 12.5mg BID, -Amlodipine 10mg qAM: Holding secondary to hypotension with medication administration -Course safe for medication administration as he recently had stents and needs strict n.p.o. RESPIRATORY - Acute on chronic hypoxic respiratory failure with hypercapnia: Improved -Extubation 07/10/2019 Presumptive aspiration pneumonia. -Cultures pending -Continue Unasyn - continue home COPD inhalers GI/NUTRITION - N.p.o. -Course safe with strict n.p.o. Speech therapy consult RENAL/LYTES - Status post nephrectomy Acute kidney injury -Creatinine elevated today 2.46 electrolytes WNL - House in place - Strict I&Os. ENDO - No known history of diabetes or thyroid disease. BSGs per unit protocol. ISS --> gtt per unit policy. HEME Anemia -Stable H&H. ID - Aspiration pneumonia: continue ampicillin/sulbactam - WBC down from 16 to 13. Lactate normal. - vanc and zosyn discontinued - bronch today, cultures obtained, showing no growth to date - blood cultures showing no growth to date - Nasal MRSA negative LINES/IV ACCESS - PIVs x2 LEFT IJ RIGHT radial arterial line ET tube House catheter DVT PROPHYLAXIS - Lovenox: Discontinued secondary to elevated creatinine -Convert to heparin 5000 twice daily SCDs (2) Tracheomalacia, acquired: (3) CAD (coronary artery disease): (4) Heart disease: (5) HTN (hypertension): (6) S/p nephrectomy: (7) Hx of CABG: (8) History of open heart surgery: (9) Aspiration pneumonia: Subjective Patient following commands on decreased sedation Reviewed extubation parameters, RSBI adequate, nif greater than -15, unable to obtain vital capacity however adequate minute ventilation on minimal vent settings Review of Systems Review of Systems: Unobtainable due to endotracheal tube Physical Exam Physical Exam: General: Alert. nontoxic. Skin: Warm, dry, Head: Atraumatic Ears, nose, mouth and throat: airway obscured by endotracheal tube Cardiovascular: Normal peripheral perfusion Respiratory: no respiratory distress, coarse sounds Gastrointestinal: Non distended Musculoskeletal: No deformity Results & Data ([facility]) Vital Signs (Past 12 Hours) Vital Signs Temp Pulse Pulse Resp BP Pulse Ox 07/10/19 15:12 81 22 96 07/10/19 14:50 22 07/10/19 14:03 81 98/71 L 94 07/10/19 14:00 78 95 07/10/19 13:45 80 15 97 07/10/19 13:33 72 102/66 94 07/10/19 13:30 71 95 07/10/19 13:03 72 110/69 95 07/10/19 13:00 71 14 95 07/10/19 12:33 37.1 C 71 108/65 95 07/10/19 12:30 70 95 07/10/19 12:03 70 107/68 95 07/10/19 12:00 70 96 07/10/19 11:33 70 112/68 97 07/10/19 11:30 69 97 07/10/19 11:03 69 108/66 97 07/10/19 11:01 67 14 97 07/10/19 11:00 67 97 07/10/19 10:33 69 99/63 L 97 07/10/19 10:30 69 97 07/10/19 10:03 69 103/65 97 07/10/19 10:00 68 98 07/10/19 09:58 65 14 100 07/10/19 09:33 68 108/66 97 07/10/19 09:30 71 96 07/10/19 09:03 73 97/62 L 96 07/10/19 09:00 74 96 07/10/19 08:33 74 105/66 95 07/10/19 08:30 75 96 02/29/20 08:03 77 109/75 98 02/29/20 08:00 77 91 07/10/19 07:55 77 14 96 07/10/19 07:33 37 C 76 110/69 96 07/10/19 07:30 76 96 07/10/19 07:03 77 107/74 96 07/10/19 07:00 76 97 07/10/19 05:15 77 14 96 07/10/19 04:33 78 99/63 L 96 Laboratory Results 07/10/19 07/10/19 07/10/19 Range/Units 14:22 11:20 04:27 WBC (4.8-10.8) K/uL RBC (4.7-6.1) M/uL Hgb (14.0-18.0) g/dL POC Hgb 10.2 L (14.0-18.0) g/dl Hct (42-52) % POC Hct 30 L (42-52) % MCV (80-100) fL MCH (25-34) pg MCHC (32-36) g/dL RDW Std Deviation (36.4-46.3) fL RDW Coeff of Kathleen (11.5-14.5) % Plt Count (130-400) K/uL MPV (7.4-10.4) fL Immature Gran % (Auto) % Neut % (Auto) % Lymph % (Auto) % [place] % (Auto) % Eos % (Auto) % Baso % (Auto) % Immature Gran # (Auto) (0.00-0.02) K/uL Neut # (Auto) (1.4-6.5) K/uL Lymph # (Auto) (1.2-3.4) K/uL [place] # (Auto) (0.11-0.59) K/uL Eos # (Auto) (0-0.5) K/uL Baso # (Auto) (0-0.2) K/uL Sample Site Art Line POC pH 7.40 (7.35-7.45) POC pCO2 43 (35-46) mmHg POC pO2 69 L (80-95) mmHg POC HCO3 27 H (19-24) na/L POC Total CO2 28 (24-31) mmol/L POC Base Excess 2.0 H (-9-1.8) na/L ABG pH 7.46 H (7.35-7.45) ABG pH (Temp Correct) 7.396 (7.35-7.45) ABG pCO2 37 (35-46) mmHg ABG pCO2 (Temp Corrct 44 (35-46) mmHg ABG pO2 66 L (80-95) mmHg POC ABG pO2 at Pt Temp 70 ABG HCO3 25 H (19-24) mmol/L ABG O2 Saturation 94.4 (90-95) % ABG Base Excess 1.7 (-9-1.8) mEq/L Nicholas Test NA Pos (Pos) Oxygen Given 60% O2 Delivery Device Ventilator POC FiO2 50 % PEEP 8 POC Sodium 140 (135-144) mmol/L Sodium (136-145) mmol/L POC Potassium 3.8 (3.3-5.0) mmol/L Potassium (3.5-5.1) mmol/L Chloride (98-107) mmol/L Carbon Dioxide (21-32) mmol/L Anion Gap (3-11) BUN (7-18) mg/dl Creatinine (0.6-1.4) mg/dl Est Cr Clr Drug Dosing ml/min Est GFR ( Amer) Est GFR (Non-Af Amer) BUN/Creatinine Ratio (10-20) Glucose (70-99) mg/dl POC Glucose 82 (70-99) mg/dl Calcium (8.5-10.1) mg/dl Phosphorus (2.5-4.9) mg/dl Magnesium (1.8-2.4) mg/dl 07/10/19 07/10/19 07/10/19 Range/Units 04:27 04:27 02:26 WBC 10.90 H (4.8-10.8) K/uL RBC 3.59 L (4.7-6.1) M/uL Hgb 10.8 L (14.0-18.0) g/dL POC Hgb (14.0-18.0) g/dl Hct 33.1 L (42-52) % POC Hct (42-52) % MCV 92.2 (80-100) fL MCH 30.1 (25-34) pg MCHC 32.6 (32-36) g/dL RDW Std Deviation 53.0 H (36.4-46.3) fL RDW Coeff of Kathleen 15.6 H (11.5-14.5) % Plt Count 182 (130-400) K/uL MPV 9.8 (7.4-10.4) fL Immature Gran % (Auto) 0.4 % Neut % (Auto) 81.6 % Lymph % (Auto) 10.5 % [place] % (Auto) 6.2 % Eos % (Auto) 1.2 % Baso % (Auto) 0.1 % Immature Gran # (Auto) 0.04 H (0.00-0.02) K/uL Neut # (Auto) 8.90 H (1.4-6.5) K/uL Lymph # (Auto) 1.14 L (1.2-3.4) K/uL [place] # (Auto) 0.68 H (0.11-0.59) K/uL Eos # (Auto) 0.13 (0-0.5) K/uL Baso # (Auto) 0.01 (0-0.2) K/uL Sample Site POC pH (7.35-7.45) POC pCO2 (35-46) mmHg POC pO2 (80-95) mmHg POC HCO3 (19-24) na/L POC Total CO2 (24-31) mmol/L POC Base Excess (-9-1.8) na/L ABG pH (7.35-7.45) ABG pH (Temp Correct) (7.35-7.45) ABG pCO2 (35-46) mmHg ABG pCO2 (Temp Corrct (35-46) mmHg ABG pO2 (80-95) mmHg POC ABG pO2 at Pt Temp ABG HCO3 (19-24) mmol/L ABG O2 Saturation (90-95) % ABG Base Excess (-9-1.8) mEq/L Nicholas Test (Pos) Oxygen Given O2 Delivery Device POC FiO2 % PEEP POC Sodium (135-144) mmol/L Sodium 140 (136-145) mmol/L POC Potassium (3.3-5.0) mmol/L Potassium 3.9 (3.5-5.1) mmol/L Chloride 107 (98-107) mmol/L Carbon Dioxide 26 (21-32) mmol/L Anion Gap 7.0 (3-11) BUN 51 H (7-18) mg/dl Creatinine 2.46 H D (0.6-1.4) mg/dl Est Cr Clr Drug Dosing 31.5 ml/min Est GFR ( Amer) 29.8 Est GFR (Non-Af Amer) 25.7 BUN/Creatinine Ratio 20.9 H (10-20) Glucose 88 (70-99) mg/dl POC Glucose 92 (70-99) mg/dl Calcium 8.2 L (8.5-10.1) mg/dl Phosphorus 4.2 D (2.5-4.9) mg/dl Magnesium 2.4 (1.8-2.4) mg/dl 07/09/19 07/09/19 Range/Units 20:43 18:26 WBC (4.8-10.8) K/uL RBC (4.7-6.1) M/uL Hgb (14.0-18.0) g/dL POC Hgb (14.0-18.0) g/dl Hct (42-52) % POC Hct (42-52) % MCV (80-100) fL MCH (25-34) pg MCHC (32-36) g/dL RDW Std Deviation (36.4-46.3) fL RDW Coeff of Kathleen (11.5-14.5) % Plt Count (130-400) K/uL MPV (7.4-10.4) fL Immature Gran % (Auto) % Neut % (Auto) % Lymph % (Auto) % [place] % (Auto) % Eos % (Auto) % Baso % (Auto) % Immature Gran # (Auto) (0.00-0.02) K/uL Neut # (Auto) (1.4-6.5) K/uL Lymph # (Auto) (1.2-3.4) K/uL [place] # (Auto) (0.11-0.59) K/uL Eos # (Auto) (0-0.5) K/uL Baso # (Auto) (0-0.2) K/uL Sample Site POC pH (7.35-7.45) POC pCO2 (35-46) mmHg POC pO2 (80-95) mmHg POC HCO3 (19-24) na/L POC Total CO2 (24-31) mmol/L POC Base Excess (-9-1.8) na/L ABG pH (7.35-7.45) ABG pH (Temp Correct) (7.35-7.45) ABG pCO2 (35-46) mmHg ABG pCO2 (Temp Corrct (35-46) mmHg ABG pO2 (80-95) mmHg POC ABG pO2 at Pt Temp ABG HCO3 (19-24) mmol/L ABG O2 Saturation (90-95) % ABG Base Excess (-9-1.8) mEq/L Nicholas Test (Pos) Oxygen Given O2 Delivery Device POC FiO2 % PEEP POC Sodium (135-144) mmol/L Sodium (136-145) mmol/L POC Potassium (3.3-5.0) mmol/L Potassium (3.5-5.1) mmol/L Chloride (98-107) mmol/L Carbon Dioxide (21-32) mmol/L Anion Gap (3-11) BUN (7-18) mg/dl Creatinine (0.6-1.4) mg/dl Est Cr Clr Drug Dosing ml/min Est GFR ( Amer) Est GFR (Non-Af Amer) BUN/Creatinine Ratio (10-20) Glucose (70-99) mg/dl POC Glucose 99 101 H (70-99) mg/dl Calcium (8.5-10.1) mg/dl Phosphorus (2.5-4.9) mg/dl Magnesium (1.8-2.4) mg/dl Diagnostic Findings I reviewed the chest x-ray dated July 10, 2019 Coding Level of Care Code Critical Care 1st 30-74 mins Diagnoses Acute on chronic respiratory failure with hypoxia and hypercapnia J96.21; J96.22 Tracheomalacia, acquired J39.8 CAD (coronary artery disease) I25.119 Coronary Disease-Associated Artery/Lesion type: [place] artery [place] vs. transplanted heart: [place] heart Associated angina: with unspecified angina Heart disease I51.9 HTN (hypertension) I10 Hypertension type: unspecified S/p nephrectomy Z90.5 Hx of CABG Z95.1 History of open heart surgery Z98.890 Aspiration pneumonia J69.0 Aspiration pneumonia type: unspecified Laterality: right Lung location: lower lobe of lung Time Spent (min) 70 Comment I have personally spent 70 minutes of critical care time in the direct management of this patient. This is a life/limb threatening event. This includes time spent evaluating patient, direct bedside care, chart review, placing orders, interpretation of diagnostic studies, discussion with consultants, patient, and/or family members regarding treatment decisions, as well as other required patient management activities. This time is exclusive of all separately billable procedures, and teaching time and separate from and in addition to any other critical care service time. (1) CAD (coronary artery disease) Coronary Disease-Associated Artery/Lesion type: [place] artery [place] vs. transplanted heart: [place] heart Associated angina: with unspecified angina Qualified Code(s): I25.119 - Atherosclerotic heart disease of [place] coronary artery with unspecified angina pectoris (2) HTN (hypertension) Hypertension type: unspecified Qualified Code(s): I10 - Essential (primary) hypertension (3) Aspiration pneumonia Aspiration pneumonia type: unspecified Laterality: right Lung location: lowe r lobe of lung Qualified Code(s): J69.0 - Pneumonitis due to inhalation of food and vomit
--- NOTE | 2019-07-10 19:10 | XRay Report ---
KUB HISTORY: Status post placement of a feeding tube coresafe tube placement COMPARISON: Chest radiograph of same day. FINDINGS: 3 images were submitted. On the first 2 images, a feeding tube is coiled at the level the m id chest. On the last image feeding tube has been repositioned with distal tip projecting over the ab dominal left upper quadrant within the region of the proximal to mid gastric lumen. Enteric contrast is noted within the large bowel. Surgical clips of the upper abdomen. Cardiomegaly. Prior median ster notomy. The bowel gas pattern is non-obstructive. There is no organomegaly. No renal calculi. No ure teral calculi. No pneumoperitoneum or pneumatosis. No fracture. IMPRESSION: Status post placement of a feeding tube, distal tip projected over the abdominal left upper quadrant within the expected location of the proximal to mid gastric lumen. ACT 112: Negative or not required by law. The above report was generated using voice recognition software. It may contain grammatical, syntax o r spelling errors. Electronically signed by: Roldan Maldonaod M.D. 07/10/2019 7:09 PM
[2019-07-10] MEDS ORDERED: PEPTAMEN INTENSE VHP 1.0 CAL 1,000 ML BAG NJ SCH (19:41)
--- NOTE | 2019-07-10 20:56 | XRay Report ---
KUB HISTORY: Status post placement of a feeding tube core safe placement COMPARISON: KUB of same day at 6:45 PM FINDINGS: The bowel gas pattern is non-obstructive. Distal tip of feeding tube projects over the abdo saurabh left upper quadrant within the region of the mid gastric body. Cholecystectomy. Retained enteri c contrast is noted within the large bowel. Cardiomegaly. Prior median sternotomy. There is no organo megaly. No renal calculi. No ureteral calculi. No pneumoperitoneum or pneumatosis. No fracture. IMPRESSION: Distal tip of feeding tube projects in the expected location of the mid gastric body. ACT 112: Negative or not required by law. The above report was generated using voice recognition software. It may contain grammatical, syntax o r spelling errors. Electronically signed by: Roldan Maldonado M.D. 07/10/2019 8:54 PM
[2019-07-10] MEDS ORDERED: RAPID SEQUENCE INDUCTION BAG ONE (21:11)
--- NOTE | 2019-07-10 21:43 | Procedure Note ---
Procedure Note Date of Service July 10, 2019 Note INTUBATION PROCEDURE NOTE: Provider: ANA Cee Attending: Dr. Abhijit Morelos A time-out was completed verifying correct patient, procedure, site, positioning. Patient was found to be hypoxic and unresponsive to stimuli in the room and required emergent intubation. Sedative agent used: Versed and fentanyl Paralysis agent used: None Emergent consent was implied given patients rapidly declining clinical status and need for airway protection. The patient was prepared in the appropriate fashion. Sedation was achieved utilizing 4 mg of Versed and 200 mcg fentanyl. The patient was easily ventilated using [id number] to achieve adequate oxygenation. A 7.5 Thai endotracheal tube was placed with a kaleidoscope to 24 cm at the lip. The stylette was removed and balloon was inflated with 10mL of air. Appropriate Colorimetric change was appreciated. Bilateral breath sounds were heard without air sounds in the abdomen. Dr. Bhargavi Razo was present for the entire procedure. Post Intubation Chest X-ray confirms placement without pneumothorax. Patient tolerated the procedure well and there were no immediate complications. Coding
--- NOTE | 2019-07-10 21:49 | Communication Note ---
Date of Service: July 10, 2019 It was brought to my attention at approximately 2100 that the patient Cezar Hansen in room 102 who had previously been extubated today was now hypoxic with oxygen saturations in the 70s and was not responding to stimuli. Patient temporarily tried on BiPAP but was not alert enough to tolerate. Decision was made to emergently intubate, see procedure note for details. He is currently stable with oxygen saturations in the low 90s. Will obtain ABG and chest x-ray and adjust ventilator accordingly. Following procedure I spoke with Dr. Morelos. Patient to remain in ICU intubated for now and will reattempt SBT in a.m. Coding Level of Care Code None
--- NOTE | 2019-07-10 21:59 | XRay Report ---
XR chest 1V portable HISTORY: 68 years-old Male tube placement status post placement of an endotracheal tube COMPARISON: Chest radiograph 07/10/2019 TECHNIQUE: Portable AP view of the chest FINDINGS: Cardiac silhouette is enlarged. Prior median sternotomy. Pulmonary vascular congestion with ill-defin ed perihilar and left lung base opacities. Left perihilar opacities have worsened. Mild right hemidia phragmatic elevation. Mildly improved aeration of the right lung base. Endotracheal tube overlies the midline, 1.8 cm superior to the cyrus. Left IJ intravenous catheter distal tip terminates the right of midline in the expected location of the brachiocephalic SVC confluence. Feeding tube distal tip p rojects superiorly within the region of the proximal gastric body. Surgical clip projects over the ga stric body as well. No pneumothorax. Trace pleural effusions. IMPRESSION: 1. Lines and tubes as above. 2. Cardiomegaly 3. Progressively worsened perihilar opacities. 4. Trace pleural effusions. ACT 112: Negative or not required by law. The above report was generated using voice recognition software. It may contain grammatical, syntax o r spelling errors. Electronically signed by: Roldan Maldonado M.D. 07/10/2019 9:58 PM
[2019-07-10] MEDS ORDERED: STAT IV Infusion **Titration per Protocol STA (22:18)
[2019-07-10] MEDS: carvediloL 12.5 MG TAB NG SCH (22:21)
[2019-07-10] MEDS: TRAZODONE HCL 100 MG TAB PO SCH (22:21)
[2019-07-10] MEDS: HEPARIN SOD 5,000 UNIT/0.5 ML VIAL SQ SCH (22:22)
[2019-07-10 22:35] LABS: iSTAT Art Bld Gas pCO2 Correct 45 mmHg (35-46); iSTAT Art Bld Gas pH Corrected 7.373 (7.35-7.45); iSTAT Arterial Blood Gas HCO3 26 meg/L (19-24); iSTAT Arterial Blood Gas pCO2 44 mmHg (35-46); iSTAT Arterial Blood Gas pH 7.38 (7.35-7.45); iSTAT Arterial Blood Gas pO2 70 mmHg (80-95); iSTAT Arterial Blood Gas pO2 C 73; iSTAT Carbon Dioxide 28 mmol/L (24-31); iSTAT FiO2 100 %; iSTAT Hematocrit 31 % (42-52); iSTAT Hemoglobin 10.5 g/dl (14.0-18.0); iSTAT Potassium 4.1 mmol/L (3.3-5.0); iSTAT Site Art Line; iSTAT Sodium 141 mmol/L (135-144)
--- NOTE | 2019-07-10 22:51 | Hospitalist Progress Note ---
Date of Service July 10, 2019 Assessment & Plan (1) Acute on chronic respiratory failure with hypoxia and hypercapnia: Patient appears to have developed acute hypercapnic and hypoxic respiratory failure. This appears to be multifactorial: given obesity, diastolic CHF, history of emphysema, and likely aspiration pneumonitis. Patient was intubated for hypercapnic respiratory failure. Placed on antibiotics for possible aspiration pneumonitis. Patient remains intubated on 07/09 Plan to extubate later today. (2) Acute diastolic (congestive) heart failure: Cardio consulted. Appreciate input (3) CAD (coronary artery disease): Patient underwent cardiac catheterization earlier today with Dr. Everett. Please see his full report. Patient's newly placed RCA stent was widely patent. Plan will be to continue antiplatelet therapy as previously prescribed. (4) HTN (hypertension): Patient is blood pressure is borderline. Will continue amlodipine 10 mg and Cardura 1 mg nightly. will continue to monitor (5) Emphysema of lung: Per history, patient apparently has a history of hypercapnic respiratory failure secondary to COPD. Will order a home O2 evaluation prior to his discharge with possible addition of home oxygen. Admission and Anticipated Discharge Date Admission Date: July 07, 2019 Subjective Patient remains intubated and sedated. Review of Systems Review of Systems: Unobtainable due to endotracheal tube Physical Exam Physical Exam: Constitutional: Patient is intubated and sedated Neck: trachea midline, no thyromegaly Respiratory: normal respiratory effort Auscultation: bilateral wheezing heard. Cardiovascular: Rate/Rhythm: regular rate and regular rhythm Heart Sounds: normal S1 and normal S2 Gastrointestinal (Abdomen): Inspection/Auscultation: abdomen normal to inspection Percussion/Palpation: abdomen soft; abdomen nontender, no guarding, abdomen not rigid and no hepatosplenomegaly Musculoskeletal: Patient has some ecchymosis right left, presumably from his previous cardiac catheterization. Skin: no rashes, warm and dry Results & Data ([facility]) Vital Signs (Past 12 Hours) Vital Signs Temp Pulse Pulse Resp BP Pulse Ox 07/10/19 22:25 18 07/10/19 21:40 90 18 90 07/10/19 19:09 90 16 93 07/10/19 17:33 83 123/75 95 07/10/19 17:30 83 15 96 07/10/19 17:03 84 123/75 95 07/10/19 17:00 82 95 07/10/19 16:33 83 120/75 95 07/10/19 16:30 83 96 07/10/19 16:03 82 121/72 95 07/10/19 16:00 37.1 C 81 15 96 07/10/19 15:34 80 114/68 96 07/10/19 15:30 82 96 07/10/19 15:12 81 22 96 07/10/19 15:00 80 95 07/10/19 14:50 22 07/10/19 14:33 77 121/74 95 07/10/19 14:30 80 94 07/10/19 14:03 81 98/71 L 94 07/10/19 14:00 78 95 07/10/19 13:45 80 15 97 07/10/19 13:33 72 102/66 94 07/10/19 13:30 71 95 07/10/19 13:03 72 110/69 95 07/10/19 13:00 71 14 95 07/10/19 12:33 37.1 C 71 108/65 95 07/10/19 12:30 70 95 07/10/19 12:03 70 107/68 95 07/10/19 12:00 70 96 07/10/19 11:33 70 112/68 97 07/10/19 11:30 69 97 07/10/19 11:03 69 108/66 97 07/10/19 11:01 67 14 97 07/10/19 11:00 67 97 PG Care Time/CCT Total # of Minutes Spent Total Time Spent with Patient: Total time spent is greater than 50% in coordination of care (as documented) at patient's floor/unit and/or counseling patient: Coding Level of Care Code 80566 Subseq Hosp Care Lvl 2 Diagnoses Acute on chronic respiratory failure with hypoxia and hypercapnia J96.21; J96.22 Acute diastolic (congestive) heart failure I50.31 CAD (coronary artery disease) I25.119 Associated angina: with unspecified angina Coronary Disease-Associated Artery/Lesion type: [place] artery [place] vs. transplanted heart: [place] heart HTN (hypertension) I10 Hypertension type: unspecified Emphysema of lung J43.9 Time Spent (min) 25 (1) CAD (coronary artery disease) Associated angina: with unspecified angina Coronary Disease-Associated Artery/Lesion type: [place] artery [place] vs. transplanted heart: [place] heart Qualified Code(s): I25.119 - Atherosclerotic heart disease of [place] coronary artery with unspecified angina pectoris (2) HTN (hypertension) Hypertension type: unspecified Qualified Code(s): I10 - Essential (primary) hypertension
[2019-07-11 00:21] LABS: Hematocrit (blood only) 34.2 % (42-52)
[2019-07-11 00:39] LABS: Albumin Level 1.8 gm/dl (3.4-5.0); BUN Creatinine Ratio 23.7 (10-20); Calcium 8.1 mg/dl (8.5-10.1); Creatinine Clr Calc Pharmacy 35.4 ml/min; Est GFR (African American) 34.2; Est GFR (Non-African American) 29.5; Potassium 4.2 mmol/L (3.5-5.1)
[2019-07-11 00:42] LABS: Albumin Globulin Ratio 0.4 (0.9-2); Bilirubin,Total 0.9 mg/dl (0.2-1); Globulin 4.6 gm/dl (2.5-4.0); Total Protein 6.4 gm/dl (6.4-8.2)
[2019-07-11] MEDS: AMPICILLIN/SULBACTAM SOD 3,000 MG in 0.9 % SODIUM CHLORIDE 100 ML IV SCH ×4 (05:06→23:04)
[2019-07-11 05:15] LABS: Basophils # (auto) 0.01 K/uL (0-0.2); Basophils % (auto) 0.1 %; Eosinophils # (auto) 0.12 K/uL (0-0.5); Eosinophils % (auto) 1.4 %; Hematocrit (blood only) 33.7 % (42-52); Immature Granulocytes # (auto) 0.03 K/uL (0.00-0.02); Immature Granulocytes % (auto) 0.3 %; Lymphocytes # (auto) 0.97 K/uL (1.2-3.4); Mean Corpuscular Hemoglobin 30.2 pg (25-34); Mean Corpuscular Hgb Conc 32.6 g/dL (32-36); Mean Corpuscular Volume 92.6 fL (80-100); Monocytes # (auto) 0.61 K/uL (0.11-0.59); Monocytes % (auto) 6.9 %; Neutrophils # (auto) 7.05 K/uL (1.4-6.5); Neutrophils % (auto) 80.3 %; Platelet Count 186 K/uL (130-400); RDW Coefficient of Variation 15.7 % (11.5-14.5); RDW Standard Deviation 53.3 fL (36.4-46.3); Red Blood Count 3.64 M/uL (4.7-6.1); White Blood Count 8.79 K/uL (4.8-10.8)
[2019-07-11 05:15] LABS: iSTAT Art Bld Gas pCO2 Correct 33 mmHg (35-46); iSTAT Art Bld Gas pH Corrected 7.508 (7.35-7.45); iSTAT Arterial Blood Gas HCO3 26 meg/L (19-24); iSTAT Arterial Blood Gas pCO2 32 mmHg (35-46); iSTAT Arterial Blood Gas pH 7.52 (7.35-7.45); iSTAT Arterial Blood Gas pO2 63 mmHg (80-95); iSTAT Arterial Blood Gas pO2 C 66; iSTAT Carbon Dioxide 27 mmol/L (24-31); iSTAT FiO2 50 %; iSTAT Hematocrit 30 % (42-52); iSTAT Hemoglobin 10.2 g/dl (14.0-18.0); iSTAT Potassium 4.4 mmol/L (3.3-5.0); iSTAT Site Art Line; iSTAT Sodium 142 mmol/L (135-144)
[2019-07-11 05:39] LABS: BUN Creatinine Ratio 24.3 (10-20); Calcium 8.2 mg/dl (8.5-10.1); Creatinine Clr Calc Pharmacy 34.6 ml/min; Est GFR (African American) 33.2; Est GFR (Non-African American) 28.7; Magnesium 2.6 mg/dl (1.8-2.4)
[2019-07-11 05:41] LABS: Phosphorus 3.5 mg/dl (2.5-4.9)
--- NOTE | 2019-07-11 07:09 | CT Scan Report ---
CT head/brain wo con CLINICAL HISTORY: 68 years-old Male with AMS. Acutely altered mental status with unresponsiveness TECHNIQUE: Multiple axial CT images of the head were obtained without contrast. A dose lowering tech nique was utilized adhering to the principles of ALARA. CT DOSE: 614.27 mGy.cm COMPARISON: None. FINDINGS: No acute intracranial hemorrhage, midline shift, intracranial mass, hydrocephalus, territorial ischem ia or abnormal extra-axial collection. Age-related involutional changes. Multiple remote appearing la cunar infarcts are noted within the bilateral goins radiata, left external capsule and left caudate nucleus. The calvarium is intact. The large mastoid effusions with fluid also noted within the bilateral midd le ear cavities. Moderate mucosal thickening of the left maxillary and sphenoid sinuses with severe m ucosal thickening of the ethmoid air cells and right maxillary sinus with multifocal scattered air-fl uid levels. Endotracheal and enteric tubes are noted. Secretions are seen within the nasopharynx and nasal turbinates. IMPRESSION: 1. No acute intracranial abnormality identified. 2. Multiple remote appearing lacunar infarcts as above. ACT 112: Negative or not required by law. The above report was generated using voice recognition software. It may contain grammatical, syntax o r spelling errors. Electronically signed by: Roldan Maldonado M.D. 07/11/2019 7:08 AM
[2019-07-11] MEDS: ALBUT/IPRATROP 3MG/0.5MG NEB 3 ML VIAL NEB SCH ×4 (07:19→20:07)
[2019-07-11] MEDS: BUDESONIDE 0.5 MG/2 ML VIAL (PULMICORT) NEB SCH ×2 (07:19→20:07)
[2019-07-11] MEDS: CLOPIDOGREL BISULFATE 75 MG TAB PEG SCH (07:48)
[2019-07-11] MEDS: HEPARIN SOD 5,000 UNIT/0.5 ML VIAL SQ SCH ×2 (07:48→21:22)
[2019-07-11] MEDS: ATORVASTATIN 40 MG TAB NG SCH (07:48)
[2019-07-11] MEDS: ASPIRIN 81 MG CHEW NG SCH (07:49)
[2019-07-11] MEDS: carvediloL 12.5 MG TAB NG SCH ×2 (07:49→21:23)
[2019-07-11] MEDS: PARoxetine HCL 10 MG TAB PO SCH (07:49)
[2019-07-11] MEDS: propofoL 1,000 MG/100 ML VIAL IV SCH ×2 (08:58→23:12)
--- NOTE | 2019-07-11 09:57 | Critical Care Progress Note ---
Date of Service July 11, 2019 Assessment & Plan (1) Acute on chronic respiratory failure with hypoxia and hypercapnia: Acute on chronic respiratory failure with hypoxia and hypercapnia: Reason Critically Ill: 68-year-old male in acute on chronic hypoxic respiratory failure with hypercapnia and somnolent state requiring intubation for airway protection. NEURO - Sedation: Propofol Encephalopathy: Likely multifactorial as patient presents with uremia, sepsis, multiple small lacunar strokes, possible hypercapnia, and was on Versed drip for multiple days while intubated initially -Concerning strokes, no prior CT imaging and last known normal was several days ago. We will continue to monitor for patient is currently following commands while off sedation. -Uremia improving as renal function slowly improved, see ERICH for management -Sepsis resolving with antibiotic therapy -Suspected hypercapnia resolved on ABG following intubation and patient's mental status since improved -Discontinuing Versed for shorter acting propofol sedation as hemodynamics will now support CARDIAC/VASCULAR - CAD - patient with recent PCI with ATA placement x 3 (5 days ago) at [facility]. Cath on admission showing patent stents, and stable disease. No new stents deployed. etiology likely secondary to demand ischemia in the setting of aspiration PNA - EKG on admission showing ST segment elevations; repeat EKG showing resolution of elevations. - ECHO 07/08 was a technically limited study but showed normal LV systolic function without wall motion abnormalities - continue cardiac monitoring - continue high intensity statin, baby aspirin, plavix, carvediolol 12.5mg BID, -Amlodipine 10mg qAM: Holding secondary to hypotension with medication administration -Core safe for medication administration RESPIRATORY - Acute on chronic hypoxic respiratory failure with hypercapnia: -Patient extubated yesterday but required reintubation later that night. Suspected hypoxic hypercapnic failure but unable to obtain gas until after intubated. -Continue to wean ventilator for SBT retrial Presumptive aspiration pneumonia. -BAL and blood cultures negative thus far -Continue Unasyn - continue home COPD inhalers GI/NUTRITION - N.p.o. -Course safe with strict n.p.o. Speech therapy consult RENAL/LYTES - Status post nephrectomy Acute kidney injury -Creatinine elevated, with peak at 2.46, showed some improvement, continue to trend -Continue map management -Avoid nephrotoxins electrolytes WNL - House in place - Strict I&Os. ENDO - No known history of diabetes or thyroid disease. BSGs per unit protocol. ISS --> gtt per unit policy. HEME Anemia -Stable H&H. ID - Aspiration pneumonia: continue ampicillin/sulbactam - WBC now normalized from 16 - vanc and zosyn discontinued -No growth to date on bronc from 07/09 - blood cultures showing no growth to date - Nasal MRSA negative LINES/IV ACCESS - PIVs x2 LEFT IJ RIGHT radial arterial line ET tube House catheter DVT PROPHYLAXIS - Subcu heparin SCDs I have personally spent this 45 minutes of critical care time in the direct management of this patient. This is a life/limb threatening event. This includes time spent evaluating patient, direct bedside care, chart review, placing orders, interpretation of diagnostic studies, discussion with consultants, patient, and family members, as well as other required patient management activities. This time is exclusive of all separately billable procedures, and teaching time and separate from and in addition to any other critical care service time. Thank you for allowing us to participate in the care of this patient. Please refer to my attending physician's documentation for any further recommendations. (2) Tracheomalacia, acquired: (3) CAD (coronary artery disease): (4) Heart disease: (5) HTN (hypertension): (6) S/p nephrectomy: (7) Hx of CABG: (8) History of open heart surgery: (9) Aspiration pneumonia: Supervising Physician Co-Signing Physician Notes I have personally evaluated and examined this patient. I agree with assessment and plan of Kendy PEREZ. Subjective Mr. Hansen was extubated yesterday to oxygen mask, however overnight he became hypoxic and unresponsive and required emergent reintubation. Suspect that the patient became hypercapnic, however patient had been intubated prior to obtaining gas which was corrected at that point. CT of the head did reveal small lacunar strokes, however last known normal would have been prior to initial intubation multiple days ago. No prior imaging to compare. Patient did follow commands early this morning but remains significantly lethargic while intubated without sedation. Later he became more responsive and now requires propofol. Currently weaning ventilator settings as tolerated. We will attempt to reevaluate for extubation with SBT. Patient remain in in ICU for further management at this time. Review of Systems Review of Systems: Unobtainable due to cognitive status and Unobtainable due to endotracheal tube Physical Exam Constitutional: Sedated, intubated Eyes: PERRL, conjunctivae normal, anicteric sclerae ENMT: external ear and nose normal, oropharynx normal Neck: trachea midline, no thyromegaly Respiratory: Inspiratory wheezes auscultated all serrano bilaterally, symmetrical chest wall movement, regular respiratory pattern on ventilator Cardiovascular: RRR, no murmur, no edema Heart Sounds: normal S1 and normal S2 Vessels: no JVD Extremities: normal capillary refill; no edema Gastrointestinal (Abdomen): normal bowel sounds, soft, nontender, no hepatosplenomegaly Musculoskeletal: no cyanosis or clubbing, extremities motor strength 5/5 Skin: no rashes, warm and dry Neurologic: Lethargic, PERRLA, symmetrical movement, follows commands while on sedation vacation Psychiatric: Unable to assess secondary to ET tube Genitourinary: Indwelling House catheter placed Results & Data ([facility]) Vital Signs (Past 12 Hours) Vital Signs Temp Pulse Resp BP Pulse Ox 07/11/19 07:19 78 14 92 07/11/19 06:00 83 92 07/11/19 05:35 84 17 94 07/11/19 05:34 79 128/78 95 07/11/19 05:08 14 07/11/19 05:04 77 129/82 92 07/11/19 05:00 76 91 07/11/19 04:34 79 120/80 92 07/11/19 04:04 77 119/76 92 07/11/19 04:00 37 C 78 92 07/11/19 03:34 78 121/72 92 07/11/19 03:04 76 116/72 92 07/11/19 03:00 78 92 07/11/19 02:34 69 111/71 92 07/11/19 02:30 72 18 92 07/11/19 02:04 79 113/73 92 07/11/19 02:00 79 92 07/11/19 01:34 82 112/72 92 07/11/19 01:04 82 111/71 92 07/11/19 01:00 82 92 07/11/19 00:34 78 111/70 92 07/11/19 00:00 36.9 C 87 93 07/10/19 23:36 87 07/10/19 23:04 87 107/67 92 07/10/19 23:00 87 92 07/10/19 22:34 91 H 94/67 L 07/10/19 22:25 18 07/10/19 22:04 78 86/56 L 90 07/10/19 22:00 81 92 Coding Level of Care Code Critical Care 1st 30-74 mins Diagnoses Acute on chronic respiratory failure with hypoxia and hypercapnia J96.21; J96.22 Tracheomalacia, acquired J39.8 CAD (coronary artery disease) I25.119 Associated angina: with unspecified angina Coronary Disease-Associated Artery/Lesion type: [place] artery [place] vs. transplanted heart: [place] heart Heart disease I51.9 HTN (hypertension) I10 Hypertension type: unspecified S/p nephrectomy Z90.5 Hx of CABG Z95.1 History of open heart surgery Z98.890 Aspiration pneumonia J69.0 Aspiration pneumonia type: unspecified Laterality: right Lung location: lower lobe of lung (1) CAD (coronary artery disease) Associated angina: with unspecified angina Coronary Disease-Associated Artery/Lesion type: [place] artery [place] vs. transplanted heart: [place] heart Qualified Code(s): I25.119 - Atherosclerotic heart disease of [place] coronary artery with unspecified angina pectoris (2) Aspiration pneumonia Aspiration pneumonia type: unspecified Laterality: right Lung location: lower lobe of lung Qualified Code(s): J69.0 - Pneumonitis due to inhalation of food and vomit (3) HTN (hypertension) Hypertension type: unspecified Qualified Code(s): I10 - Essential (primary) hypertension
[2019-07-11] MEDS: TRAZODONE HCL 100 MG TAB PO SCH (21:23)
--- NOTE | 2019-07-11 22:17 | Hospitalist Progress Note ---
Date of Service July 11, 2019 Assessment & Plan (1) Acute on chronic respiratory failure with hypoxia and hypercapnia: Patient appears to have developed acute hypercapnic and hypoxic respiratory failure. This appears to be multifactorial: given obesity, diastolic CHF, history of emphysema, and likely aspiration pneumonitis. Patient was intubated for hypercapnic respiratory failure. Placed on antibiotics for possible aspiration pneumonitis. Patient remains intubated on 07/10 Extubated for a short period of time on . But required reintubation overnight. Plan to extubate perhaps on 07/11. (2) Acute diastolic (congestive) heart failure: Cardio consulted. Appreciate input (3) CAD (coronary artery disease): Patient underwent cardiac catheterization earlier today with Dr. Everett. Please see his full report. Patient's newly placed RCA stent was widely patent. Plan will be to continue antiplatelet therapy as previously prescribed. (4) HTN (hypertension): Patient is blood pressure is borderline. Will continue amlodipine 10 mg and Cardura 1 mg nightly. will continue to monitor (5) Emphysema of lung: Per history, patient apparently has a history of hypercapnic respiratory failure secondary to COPD. Will order a home O2 evaluation prior to his discharge with possible addition of home oxygen. Admission and Anticipated Discharge Date Admission Date: July 07, 2019 Subjective Mr. Hansen was extubated for a short period of time yesterday. During which he was on an oxygen mask, however overnight he became hypoxic and required emergent reintubation. ICU team suspects he also became hypercapnic. However in AM, patient was following commands when sedation was held for wheening trial. Patient will continue to be intubated today 07/10, may try to extubate on 07/11 Review of Systems Review of Systems: Unobtainable due to endotracheal tube Physical Exam Physical Exam: Constitutional: Patient is intubated and sedated Neck: trachea midline, no thyromegaly Respiratory: normal respiratory effort Auscultation: bilateral wheezing heard. Cardiovascular: Rate/Rhythm: regular rate and regular rhythm Heart Sounds: normal S1 and normal S2 Gastrointestinal (Abdomen): Inspection/Auscultation: abdomen normal to in spection Percussion/Palpation: abdomen soft; abdomen nontender, no guarding, abdomen not rigid and no hepatosplenomegaly Musculoskeletal: Patient has some ecchymosis right left, presumably from his previous cardiac catheterization. Skin: no rashes, warm and dry Results & Data ([facility]) Vital Signs (Past 12 Hours) Vital Signs Temp Pulse Resp BP Pulse Ox 07/11/19 20:11 71 14 91 07/11/19 20:00 70 07/11/19 18:02 82 14 94 07/11/19 16:35 82 149/73 H 94 07/11/19 16:30 79 93 07/11/19 16:04 77 143/77 H 92 07/11/19 16:03 14 07/11/19 16:00 37.2 C 79 92 07/11/19 15:34 78 139/72 91 07/11/19 15:30 79 92 07/11/19 15:04 77 143/76 H 94 07/11/19 15:00 75 94 07/11/19 14:34 76 137/73 93 07/11/19 14:30 77 93 07/11/19 14:04 76 135/74 93 07/11/19 14:00 81 94 07/11/19 13:49 77 17 93 07/11/19 13:34 75 129/83 92 07/11/19 13:30 70 91 07/11/19 13:04 74 127/73 92 07/11/19 13:00 75 92 07/11/19 12:34 78 136/85 92 07/11/19 12:30 72 92 07/11/19 12:04 75 131/76 91 07/11/19 12:00 37.1 C 71 90 07/11/19 11:30 71 90 07/11/19 11:21 67 14 91 07/11/19 11:04 73 131/78 91 07/11/19 11:00 70 92 07/11/19 10:34 71 125/76 93 07/11/19 10:30 67 93 PG Care Time/CCT Total # of Minutes Spent Total Time Spent with Patient: Total time spent is greater than 50% in coordination of care (as documented) at patient's floor/unit and/or counseling patient: Coding Level of Care Code 84002 Subseq Hosp Care Lvl 2 Diagnoses Acute on chronic respiratory failure with hypoxia and hypercapnia J96.21; J96.22 Acute diastolic (congestive) heart failure I50.31 CAD (coronary artery disease) I25.119 Associated angina: with unspecified angina Coronary Disease-Associated Artery/Lesion type: [place] artery [place] vs. transplanted heart: [place] heart HTN (hypertension) I10 Hypertension type: unspecified Emphysema of lung J43.9 Time Spent (min) 25 (1) CAD (coronary artery disease) Associated angina: with unspecified angina Coronary Disease-Associated Artery/Lesion type: [place] artery [place] vs. transplanted heart: [place] heart Qualified Code(s): I25.119 - Atherosclerotic heart disease of [place] coronary artery with unspecified angina pectoris (2) HTN (hypertension) Hypertension type: unspecified Qualified Code(s): I10 - Essential (primary) hypertension
[2019-07-12 04:41] LABS: Eosinophils # (auto) 0.14 K/uL (0-0.5); Eosinophils % (auto) 2.3 %; Hematocrit (blood only) 33.1 % (42-52); Hemoglobin 10.3 g/dL (14.0-18.0); Immature Granulocytes # (auto) 0.02 K/uL (0.00-0.02); Immature Granulocytes % (auto) 0.3 %; Lymphocytes # (auto) 1.06 K/uL (1.2-3.4); Mean Corpuscular Hemoglobin 29.3 pg (25-34); Mean Corpuscular Hgb Conc 31.1 g/dL (32-36); Mean Corpuscular Volume 94.3 fL (80-100); Mean Platelet Volume 9.6 fL (7.4-10.4); Monocytes # (auto) 0.52 K/uL (0.11-0.59); Monocytes % (auto) 8.4 %; Neutrophils # (auto) 4.48 K/uL (1.4-6.5); Platelet Count 209 K/uL (130-400); RDW Standard Deviation 55.2 fL (36.4-46.3); Red Blood Count 3.51 M/uL (4.7-6.1); White Blood Count 6.22 K/uL (4.8-10.8)
[2019-07-12 04:44] LABS: Base Excess ABG 2.8 mEq/L (-9-1.8); HCO3 ABG 27 mmol/L (19-24); Oxygen Saturation ABG 92.6 % (90-95); PCO2 ABG 38 mmHg (35-46); PO2 ABG 66 mmHg (80-95); pH ABG 7.46 (7.35-7.45)
[2019-07-12 04:45] LABS: Allen Test Pos (Pos)
[2019-07-12] MEDS: AMPICILLIN/SULBACTAM SOD 3,000 MG in 0.9 % SODIUM CHLORIDE 100 ML IV SCH ×4 (04:54→22:14)
[2019-07-12 05:04] LABS: Albumin Globulin Ratio 0.4 (0.9-2); Albumin Level 1.8 gm/dl (3.4-5.0); BUN Creatinine Ratio 23.3 (10-20); Bilirubin,Total 0.7 mg/dl (0.2-1); Calcium 8.2 mg/dl (8.5-10.1); Creatinine Clr Calc Pharmacy 41.1 ml/min; Est GFR (African American) 41.6; Est GFR (Non-African American) 35.9; Globulin 4.7 gm/dl (2.5-4.0); Magnesium 2.6 mg/dl (1.8-2.4); Phosphorus 2.7 mg/dl (2.5-4.9); Potassium 4.2 mmol/L (3.5-5.1); Total Protein 6.5 gm/dl (6.4-8.2)
[2019-07-12] MEDS: NOREPINEPHRINE BIT INJ 8 MG in DEXTROSE 5% 500 ML IV SCH (07:04)
[2019-07-12] MEDS: ALBUT/IPRATROP 3MG/0.5MG NEB 3 ML VIAL NEB SCH ×4 (07:05→18:55)
[2019-07-12] MEDS: BUDESONIDE 0.5 MG/2 ML VIAL (PULMICORT) NEB SCH ×2 (07:05→18:54)
--- NOTE | 2019-07-12 07:36 | XRay Report ---
SINGLE VIEW CHEST CLINICAL HISTORY: Respiratory failure. FINDINGS: An AP, portable, upright chest radiograph is compared to studies dated 07/10/2019. The exami nation is significantly degraded by portable technique and patient rotation. The patient is status po st midline sternotomy. An endotracheal tube, an enteric tube, and a left internal jugular central ludmila ous catheter are unchanged in position. The heart is enlarged noting atherosclerotic calcification of the thoracic aorta. There is prominence of the pulmonary vasculature. There are small pleural effusi ons and bibasilar consolidation. No pneumothorax is seen. The skeletal structures are osteopenic. The bony thorax is grossly intact. IMPRESSION: 1. Stable lines and tubes. 2. Cardiomegaly with prominence of the pulmonary vasculature. Correlate clinically for evidence of mi ld congestive failure. 3. Small pleural effusions and bibasilar consolidation. ACT 112: Negative or not required by law. Electronically signed by: Timmy Moreau M.D. 07/12/2019 7:34 AM
[2019-07-12] MEDS: propofoL 1,000 MG/100 ML VIAL IV SCH ×4 (08:11→13:15)
[2019-07-12] MEDS: HEPARIN SOD 5,000 UNIT/0.5 ML VIAL SQ SCH ×2 (08:12→21:02)
--- NOTE | 2019-07-12 09:25 | Critical Care Progress Note ---
Date of Service July 12, 2019 Assessment & Plan (1) Aspiration pneumonia: Acute on chronic respiratory failure with hypoxia and hypercapnia: Reason Critically Ill: 68-year-old male in acute on chronic hypoxic respiratory failure with hypercapnia and somnolent state requiring intubation for airway protection. NEURO - Sedation: Propofol Encephalopathy: Likely multifactorial as patient presents with sepsis, multiple small lacunar strokes, hypercapnia, and was on Versed drip for multiple days while intubated initially -Concerning strokes, no prior CT imaging and last known normal was several days ago. -Uremia improving as renal function slowly improved, see ERICH for management -Sepsis resolving with antibiotic therapy -Suspected hypercapnia resolved on ABG following intubation and patient's mental status since improved CARDIAC/VASCULAR - CAD - patient with recent PCI with ATA placement x 3 (5 days ago) at [facility]. Cath on admission showing patent stents, and stable disease. No new stents deployed. etiology likely secondary to demand ischemia in the setting of aspiration PNA - EKG on admission showing ST segment elevations; repeat EKG showing resolution of elevations. - ECHO 07/08 normal LV systolic function without wall motion abnormalities - continue cardiac monitoring - continue high intensity statin, baby aspirin, plavix, carvediolol 12.5mg BID - Core safe for medication administration RESPIRATORY - Acute on chronic hypoxic respiratory failure with hypercapnia: -Patient extubated but required reintubation later that night likely hypercapnic and hypoxic -Continue to wean ventilator for SBT retrial Presumptive aspiration pneumonia. -BAL and blood cultures negative thus far -Continue Unasyn - continue home COPD inhalers GI/NUTRITION - N.p.o. -Course safe with strict n.p.o. Speech therapy consult RENAL/LYTES - Status post nephrectomy Acute kidney injury -Creatinine elevated, with peak at 2.46, showed some improvement, continue to trend -Continue map management -Avoid nephrotoxins electrolytes WNL - House in place - Strict I&Os. ENDO - No known history of diabetes or thyroid disease. BSGs per unit protocol. ISS --> gtt per unit policy. HEME Anemia -Stable H&H. ID - Aspiration pneumonia: continue ampicillin/sulbactam - WBC now normalized from 16 - vanc and zosyn discontinued -No growth to date on bronc from 07/09 - blood cultures showing no growth to date - Nasal MRSA negative LINES/IV ACCESS - PIVs x2 LEFT IJ RIGHT radial arterial line ET tube House catheter DVT PROPHYLAXIS - Subcu heparin SCDs Plan: 250 mg every 6 hours free water by NGT for his hypernatremia sodium 147. Mild elevation in alk phos and AST could be secondary to ampicillin/sulbactam. Will monitor. Titrate down propofol to Rass -1. Patient still having thick secretions which a re being suctioned out. Blood cultures and bronc cultures are negative till date. Given that the patient had recent stent it is important the patient continue with Plavix but given that he has aspiration it complicates things. Also think patient has a component of GABI requiring BiPAP nightly and PRN. Given that the patient will need a feeding tube for his aspiration for his Plavix this will also be an issue going forward. We will try SBT later today to see if he can be extubated. I have personally spent 35 minutes of critical care time in the direct management of this patient. This is a life/limb threatening event. This includes time spent evaluating patient, direct bedside care, chart review, placing orders, interpretation of diagnostic studies, discussion with consultants, patient, and family members, as well as other required patient management activities. This time is exclusive of all separately billable procedures, and teaching time and separate from and in addition to any other critical care service time. Please note the above document was generated using voice recognition software. It may contain grammatical, syntax or spelling errors. (2) Acute diastolic (congestive) heart failure: Subjective Patient seen and examined at bedside. No acute distress, no adverse events overnight. Patient was on propofol 15 at the time of examination. Ross -2. Patient opens his eyes to verbal command but does not follow. In outpatient is -1.2 L in the last 24 hours Review of Systems Review of Systems: Unobtainable due to endotracheal tube Physical Exam Physical Exam: Constitutional: No acute distress HEENT: PERRLA Respiratory system: Decreased air entry bilaterally, positive bilateral lower lobe crackles, no wheeze, no rhonchi CVS: S1-S2 positive, no murmurs or gallops Abdomen: Soft, nontender, nondistended, positive bowel sounds x4 Extremities: +2 pulses bilaterally radialis/ dorsalis pedis, no cyanosis, +1 edema bilateral lower extremity Neuro: Awake alert oriented x3 Psych: Normal mood and affect G/U: Positive House Left IJ, right radial A-line Skin: no rashes, warm and dry Lymphatic: no cervical or axillary lymphadenopathy Results & Data ([facility]) Vital Signs (Past 12 Hours) Vital Signs Temp Pulse Resp BP Pulse Ox 07/12/19 09:00 75 92 07/12/19 08:05 73 138/79 91 07/12/19 08:00 38.2 C H 74 91 07/12/19 07:09 77 14 92 07/12/19 07:05 72 134/71 92 07/12/19 05:00 74 14 90 07/12/19 01:30 67 14 91 07/12/19 00:00 67 07/11/19 22:50 68 14 91 07/12/19 04:28 07/12/19 04:28 Coding Level of Care Code Critical Care 1st 30-74 mins Diagnoses Aspiration pneumonia J69.0 Aspiration pneumonia type: unspecified Laterality: right Lung location: lower lobe of lung Acute diastolic (congestive) heart failure I50.31 Time Spent (min) 35 (1) Aspiration pneumonia Aspiration pneumonia type: unspecified Laterality: right Lung location: lower lobe of lung Qualified Code(s): J69.0 - Pneumonitis due to inhalation of food and vomit
[2019-07-12] MEDS: carvediloL 12.5 MG TAB NG SCH (10:22)
[2019-07-12] MEDS: ASPIRIN 81 MG CHEW NG SCH (10:22)
[2019-07-12] MEDS: PARoxetine HCL 10 MG TAB PO SCH (10:23)
[2019-07-12] MEDS: CLOPIDOGREL BISULFATE 75 MG TAB PEG SCH (10:23)
[2019-07-12] MEDS: ATORVASTATIN 40 MG TAB NG SCH (10:23)
[2019-07-12] MEDS: FAMOTIDINE 20 MG in SYRINGE 3 ML IV SCH (11:39)
[2019-07-12] MEDS: TUBE FEEDING WATER FLUSH NG SCH ×3 (11:39→22:44)
--- NOTE | 2019-07-12 12:34 | Hospitalist Progress Note ---
Date of Service July 12, 2019 Assessment & Plan (1) Acute on chronic respiratory failure with hypoxia and hypercapnia: Placed on antibiotics for possible aspiration pneumonitis on 07/08. Patie nt remains intubated on 07/11. Extubated for a short period of time on , but required reintubation overnight. Bronch on 07/09 showed purulent secretions and airway collapse. Bronch samples without any growth so far. - Continues to be febrile today. - Continue Unasyn per ICU team (2) Acute diastolic (congestive) heart failure: Echo on 07/07 was very poor, but LV function seemed normal. - Cardio consulted - Appreciate input - Holding any diuretic right now (3) CAD (coronary artery disease): S/p CABG at some point. Presented to [facility] on 07/03 and sent to [facility] for emergency cardiac catheterization. Received 1 ATA to the mid-RCA. LAD had proximal and mid segment 70-80% lesions. Diagonal had 80% lesion. LCX also diseased. HELLER graft not evaluated at that time. Repeat cath on 07/[address] Everett showed patent HELLER -> LAD, occluded SVG -> PDA/OM. - Continue DAPT, beta-hanny, Imdur (4) HTN (hypertension): BP is 155/90 today. - Continue amlodipine, carvedilol, Imdur (5) Emphysema of lung: Per history, patient apparently has a history of hypercapnic respiratory failure secondary to COPD. - Monitor O2 (6) Gout: No hot joints noted on exam today. - Continue allopurinol as able (7) DVT prophylaxis: Heparin 5000 units Q12h Admission and Anticipated Discharge Date Admission Date: July 07, 2019 Subjective Intubated and sedated. He follows some commands haphazardly, but otherwise can not really respond. Review of Systems Review of Systems: Unobtainable due to endotracheal tube and Unobtainable due to reduced consciousness Physical Exam Constitutional: WD/WN, vitals as above + acute distress, + lethargic and + overweight Eyes: EOM intact bilaterally; no conjunctival abnormality ENMT: external ear and nose normal, oropharynx normal Mouth / Teeth: 1. Breathing tube 2. 3. 4. Neck: trachea midline, no thyromegaly normal visual inspection Respiratory: normal respiratory effort, lungs clear to auscultation no respiratory distress Cardiovascular: RRR, no murmur, no edema Gastrointestinal (Abdomen): Inspection/Auscultation: abdomen normal to inspection; abdomen not distended Musculoskeletal: no cyanosis or clubbing, extremities motor strength 5/5 Skin: no rashes, warm and dry Neurologic: moves all extremities and awake Psychiatric: Orientation: alert, oriented to person and cooperative Results & Data ([facility]) Vital Signs (Past 12 Hours) Vital Signs Temp Pulse Resp BP Pulse Ox 07/12/19 12:00 38.0 C H 72 92 07/12/19 11:30 76 18 92 07/12/19 11:05 77 155/88 H 94 07/12/19 10:05 79 164/92 H 90 07/12/19 09:35 81 174/94 H 92 07/12/19 09:05 76 156/89 H 92 07/12/19 09:00 75 92 07/12/19 08:05 73 138/79 91 07/12/19 08:00 38.2 C H 74 91 07/12/19 07:09 77 14 92 07/12/19 07:05 72 134/71 92 07/12/19 05:00 74 14 90 07/12/19 01:30 67 14 91 PG Care Time/CCT Total # of Minutes Spent Total Time Spent with Patient: Total time spent is greater than 50% in coordination of care (as documented) at patient's floor/unit and/or counseling patient: Coding Level of Care Code 78263 Subseq Hosp Care Lvl 3 Diagnoses Acute on chronic respiratory failure with hypoxia and hypercapnia J96.21; J96.22 Acute diastolic (congestive) heart failure I50.31 CAD (coronary artery disease) I25.119 Coronary Disease-Associated Artery/Lesion type: [place] artery [place] vs. transplanted heart: [place] heart Associated angina: with unspecified angina HTN (hypertension) I10 Hypertension type: unspecified Emphysema of lung J43.9 Gout M10.9 Chronicity: acute Gout etiology: unspecified cause Gout site: foot Laterality: left DVT prophylaxis Z29.9 (1) CAD (coronary artery disease) Coronary Disease-Associated Artery/Lesion type: [place] artery [place] vs. transplanted heart: [place] heart Associated angina: with unspecified angina Qualified Code(s): I25.119 - Atherosclerotic heart disease of [place] coronary artery with unspecified angina pectoris (2) HTN (hypertension) Hypertension type: unspecified Qualified Code(s): I10 - Essential (primary) hypertension (3) Gout Chronicity: acute Gout etiology: unspecified cause Gout site: foot Laterality: left Qualified Code(s): M10.9 - Gout, unspecified
[2019-07-12] MEDS: METOPROLOL TARTRATE 1 MG/ML VIAL IV SCH ×2 (15:22→22:14)
[2019-07-12] MEDS: HydrALAZINE HCL 20 MG/ML VIAL IV PRN (17:14)
[2019-07-12] MEDS: TRAZODONE HCL 100 MG TAB PO SCH (20:17)
[2019-07-13] MEDS: HydrALAZINE HCL 20 MG/ML VIAL IV PRN (01:53)
[2019-07-13 05:14] LABS: Basophils # (auto) 0.01 K/uL (0-0.2); Basophils % (auto) 0.1 %; Eosinophils # (auto) 0.19 K/uL (0-0.5); Eosinophils % (auto) 2.6 %; Hematocrit (blood only) 35.5 % (42-52); Hemoglobin 11.2 g/dL (14.0-18.0); Immature Granulocytes # (auto) 0.03 K/uL (0.00-0.02); Immature Granulocytes % (auto) 0.4 %; Lymphocytes # (auto) 1.04 K/uL (1.2-3.4); Lymphocytes % (auto) 14.3 %; Mean Corpuscular Hemoglobin 29.9 pg (25-34); Mean Corpuscular Hgb Conc 31.5 g/dL (32-36); Mean Corpuscular Volume 94.9 fL (80-100); Mean Platelet Volume 10.1 fL (7.4-10.4); Monocytes # (auto) 0.63 K/uL (0.11-0.59); Monocytes % (auto) 8.7 %; Neutrophils # (auto) 5.35 K/uL (1.4-6.5); Neutrophils % (auto) 73.9 %; Platelet Count 253 K/uL (130-400); RDW Coefficient of Variation 15.5 % (11.5-14.5); RDW Standard Deviation 54.3 fL (36.4-46.3); Red Blood Count 3.74 M/uL (4.7-6.1); White Blood Count 7.25 K/uL (4.8-10.8)
[2019-07-13 05:19] LABS: Albumin Globulin Ratio 0.4 (0.9-2); Albumin Level 1.9 gm/dl (3.4-5.0); BUN Creatinine Ratio 22.6 (10-20); Bilirubin,Total 0.9 mg/dl (0.2-1); Calcium 8.3 mg/dl (8.5-10.1); Creatinine Clr Calc Pharmacy 51.2 ml/min; Est GFR (African American) 53.4; Est GFR (Non-African American) 46.1; Phosphorus 3.1 mg/dl (2.5-4.9); Total Protein 6.9 gm/dl (6.4-8.2)
[2019-07-13] MEDS: TUBE FEEDING WATER FLUSH NG SCH (05:26)
[2019-07-13] MEDS: AMPICILLIN/SULBACTAM SOD 3,000 MG in 0.9 % SODIUM CHLORIDE 100 ML IV SCH ×2 (05:33→11:45)
[2019-07-13 06:23] LABS: Magnesium 2.5 mg/dl (1.8-2.4)
[2019-07-13] MEDS: ALBUT/IPRATROP 3MG/0.5MG NEB 3 ML VIAL NEB SCH ×4 (07:10→20:19)
[2019-07-13] MEDS: BUDESONIDE 0.5 MG/2 ML VIAL (PULMICORT) NEB SCH ×2 (07:10→20:20)
--- NOTE | 2019-07-13 08:15 | XRay Report ---
SINGLE VIEW CHEST CLINICAL HISTORY: Aspiration pneumonia. FINDINGS: An AP, portable, upright chest radiograph is compared to studies dated 07/12/2019. The examin ation is degraded by portable technique and patient rotation. The patient is status post midline ster notomy. Endotracheal and enteric tubes have been removed. A left internal jugular central venous cath eter is unchanged in position. The heart is enlarged noting atherosclerotic calcification of the thor acic aorta. The pulmonary vasculature is noncongested. There are small pleural effusions and bibasila r consolidation. No pneumothorax is seen. The skeletal structures are osteopenic. The bony thorax is grossly intact. IMPRESSION: 1. Endotracheal and enteric tubes have been removed. 2. Cardiomegaly without radiographic evidence of congestive failure. 3. Small pleural effusions and bibasilar consolidation. Pleural effusions may have modestly decreased in size from yesterday. ACT 112: Negative or not required by law. Electronically signed by: Timmy Moreau M.D. 07/13/2019 8:14 AM
[2019-07-13] MEDS: HEPARIN SOD 5,000 UNIT/0.5 ML VIAL SQ SCH ×2 (08:19→21:56)
[2019-07-13] MEDS: METOPROLOL TARTRATE 1 MG/ML VIAL IV SCH ×2 (08:20→21:10)
[2019-07-13] MEDS: DEXTROSE 5% 1,000 ML IV SCH ×2 (08:43→21:53)
[2019-07-13] MEDS: ASPIRIN 81 MG CHEW NG SCH (08:49)
[2019-07-13] MEDS: CLOPIDOGREL BISULFATE 75 MG TAB PEG SCH ×2 (08:50→16:59)
[2019-07-13] MEDS: PARoxetine HCL 10 MG TAB PO SCH (08:50)
[2019-07-13] MEDS: ATORVASTATIN 40 MG TAB NG SCH (08:50)
[2019-07-13] MEDS: FAMOTIDINE 20 MG in SYRINGE 3 ML IV SCH (11:46)
--- NOTE | 2019-07-13 13:00 | Hospitalist Progress Note ---
Date of Service July 13, 2019 Assessment & Plan (1) Acute on chronic respiratory failure with hypoxia and hypercapnia: Placed on antibiotics for possible aspiration pneumonitis on 07/08. Patient remains intubated on 07/11. Extubated for a short period of time on , but required reintubation overnight. Bronch on 07/09 showed purulent secretions and airway collapse. Bronch samples without any growth so far. - Last fever on 07/11 around noon. - Continue Unasyn per ICU team (2) Acute diastolic (congestive) heart failure: Echo on 07/07 was very poor, but LV function seemed normal. - Cardio consulted - Appreciate input - Holding any diuretic right now (3) CAD (coronary artery disease): S/p CABG at some point. Presented to [facility] on 07/03 and sent to [place] for emergency cardiac catheterization. Received 1 ATA to the mid-RCA. LAD had proximal and mid segment 70-80% lesions. Diagonal had 80% lesion. LCX also diseased. HELLER graft not evaluated at that time. Repeat cath on 07/[address] Everett showed patent HELLER -> LAD, occluded SVG -> PDA/OM. - Continue DAPT, beta-hanny, Imdur - Considering NGT and possible eventual PEG if he cannot swallow. (4) HTN (hypertension): BP is 165/100 today. - Continue amlodipine, carvedilol, Imdur (5) Emphysema of lung: Per history, patient apparently has a history of hypercapnic respiratory failure secondary to COPD. - Monitor O2 - Continue DuoNebs (6) Gout: No hot joints noted on exam today. - Continue allopurinol as able (7) DVT prophylaxis: Heparin 5000 units Q12h Admission and Anticipated Discharge Date Admission Date: July 07, 2019 Subjective Is responding more at this time. Denies chest pain. Denies shortness of breath. Knows self and place. Reports no fevers/chills, chest pain, shortness of breath, abdominal pain, nausea, or vomiting. Physical Exam Constitutional: WD/WN, vitals as above + acute distress, cooperative, + lethargic and + overweight Eyes: EOM intact bilaterally; no conjunctival abnormality ENMT: external ear and nose normal, oropharynx normal Neck: trachea midline, no thyromegaly normal visual inspection Respiratory: normal respiratory effort, lungs clear to auscultation no respiratory distress Cardiovascular: RRR, no murmur, no edema Gastrointestinal (Abdomen): Inspection/Auscultation: abdomen normal to inspection; abdomen not distended Musculoskeletal: no cyanosis or clubbing, extremities motor strength 5/5 Skin: no rashes, warm and dry Neurologic: moves all extremities and awake Psychiatric: Orientation: oriented to person, oriented to place and cooperative; + not oriented to time Results & Data ([facility]) Vital Signs (Past 12 Hours) Vital Signs Temp Pulse Pulse Resp BP Pulse Ox 07/13/19 11:14 73 18 95 07/13/19 11:00 75 11 L 89 L 07/13/19 10:46 80 21 161/98 H 94 07/13/19 10:00 65 17 94 07/13/19 09:46 68 17 154/94 H 95 07/13/19 09:00 67 17 94 07/13/19 08:46 65 19 144/81 H 93 07/13/19 08:20 76 155/93 H 07/13/19 08:00 35.8 C L 67 16 96 07/13/19 07:49 72 20 97 07/13/19 07:46 69 13 155/93 H 97 07/13/19 07:16 73 14 95 07/13/19 07:00 67 19 95 07/13/19 05:46 77 18 124/64 93 07/13/19 05:45 76 13 93 07/13/19 05:21 76 17 132/68 95 07/13/19 04:57 79 14 120/69 95 07/13/19 04:46 36.6 C 75 19 120/69 95 07/13/19 03:46 72 18 157/89 H 96 07/13/19 02:46 72 19 152/87 H 94 07/13/19 01:59 68 16 155/91 H 95 07/13/19 01:49 65 14 94 07/13/19 01:46 63 14 167/99 H 95 PG Care Time/CCT Total # of Minutes Spent Total Time Spent with Patient: Total time spent is greater than 50% in coordination of care (as documented) at patient's floor/unit and/or counseling patient: Coding Level of Care Code 31304 Subseq Hosp Care Lvl 3 Diagnoses Acute on chronic respiratory failure with hypoxia and hypercapnia J96.21; J96.22 Acute diastolic (congestive) heart failure I50.31 CAD (coronary artery disease) I25.119 Coronary Disease-Associated Artery/Lesion type: [place] artery [place] vs. transplanted heart: [place] heart Associated angina: with unspecified angina HTN (hypertension) I10 Hypertension type: unspecified Emphysema of lung J43.9 Gout M10.9 Chronicity: acute Gout etiology: unspecified cause Gout site: foot Laterality: left DVT prophylaxis Z29.9 (1) CAD (coronary artery disease) Coronary Disease-Associated Artery/Lesion type: [place] artery [place] vs. transplanted heart: [place] heart Associated angina: with unspecified angina Qualified Code(s): I25.119 - Atherosclerotic heart disease of [place] coronary artery with unspecified angina pectoris (2) HTN (hypertension) Hypertension type: unspecified Qualified Code(s): I10 - Essential (primary) hypertension (3) Gout Chronicity: acute Gout etiology: unspecified cause Gout site: foot Laterality: left Qualified Code(s): M10.9 - Gout, unspecified
--- NOTE | 2019-07-13 13:54 | Critical Care Progress Note ---
Date of Service July 13, 2019 Assessment & Plan (1) Aspiration pneumonia: Acute on chronic respiratory failure with hypoxia and hypercapnia: Reason Critically Ill: 68-year-old male in acute on chronic hypoxic respiratory failure with hypercapnia and somnolent state requiring intubation for airway protection. NEURO - S/p Encephalopathy: Likely multifactorial as patient presents with sepsis, multiple small lacunar strokes, hypercapnia -Last known CT head normal was several days ago. -Uremia improving as renal function slowly improved, see ERICH for management -Sepsis resolving with antibiotic therapy -Suspected hypercapnia resolved on ABG following intubation and patient's mental status since improved CARDIAC/VASCULAR - CAD - patient with recent PCI with ATA placement x 3 (5 days ago) at [facility]. Cath on admission showing patent stents, and stable disease. No new stents deployed. etiology likely secondary to demand ischemia in the setting of aspiration PNA - EKG on admission showing ST segment elevations; repeat EKG showing resolution of elevations. - ECHO 07/08 normal LV systolic function without wall motion abnormalities - continue cardiac monitoring - continue high intensity statin, baby aspirin, plavix, carvediolol 12.5mg BID (On hold as patient is not able to swallow) RESPIRATORY - Acute on chronic hypoxic respiratory failure with hypercapnia: -Patient extubated but required reintubation later that night likely hypercapnic and hypoxic. Extubated 07/12/19 Presumptive aspiration pneumonia. -BAL and blood cultures negative thus far -Continue Unasyn - continue home COPD inhalers GI/NUTRITION - N.p.o. - Will get NGT placed today Speech therapy consult RENAL/LYTES - Status post nephrectomy Acute kidney injury -Creatinine elevated, with peak at 2.46, showed some improvement, continue to trend -Continue map management -Avoid nephrotoxins electrolytes WNL - House in place - Strict I&Os. ENDO - No known history of diabetes or thyroid disease. BSGs per unit protocol. ISS --> gtt per unit policy. HEME Anemia -Stable H&H. ID - Aspiration pneumonia: continue ampicillin/sulbactam - vanc and zosyn discontinued -No growth to date on bronc from 07/09 - blood cultures showing no growth to date - Nasal MRSA negative LINES/IV ACCESS - PIVs x2 LEFT IJ RIGHT radial arterial line House catheter DVT PROPHYLAXIS - Subcu heparin SCDs Plan: D5 water 100 mL an hour for total of 1.5 L given the sodium is 148. Mild elevation in alk phos and AST could be secondary to ampicillin/sulbactam. Continue monitoring Blood cultures and [facility] cultures are negative till date. Given that the patient had recent stent it is important the patient continue with Plavix but given that he has aspiration it complicates things. We will put NGT today for Plavix to be given. High likelihood the patient will need a PEG tube. Also think patient has a component of GABI requiring BiPAP nightly and PRN. Given that the patient will need a feeding tube for his aspiration for his Plavix this will also be an issue going forward. DC House, DC A-line. Will DC left IJ. I have personally spent 38 minutes of critical care time in the direct management of this patient. This is a life/limb threatening event. This includes time spent evaluating patient, direct bedside care, chart review, placing orders, interpretation of diagnostic studies, discussion with consultants, patient, and family members, as well as other required patient management activities. This time is exclusive of all separately billable procedures, and teaching time and separate from and in addition to any other critical care service time. Please note the above document was generated using voice recognition software. It may contain grammatical, syntax or spelling errors. (2) Acute diastolic (congestive) heart failure: Subjective Patient seen and examined at bedside. No acute distress, no adverse events overnight. Patient used BiPAP overnight. Patient is awake alert oriented to self and place. Able to answer simple questions. Denies any chest pain, no headache, no shortness of breath. Does complain of some nausea. Review of Systems Review of Systems: All systems reviewed & are unremarkable except as noted in HPI & below Physical Exam Physical Exam: Constitutional: No acute distress HEENT: PERRLA, EOMI Respiratory system: Decreased air entry bilaterally, positive bilateral lower lobe crackles, no wheeze, no rhonchi CVS: S1-S2 positive, no murmurs or gallops Abdomen: Soft, nontender, nondistended, positive bowel sounds x4 Extremities: +2 pulses bilaterally radialis/ dorsalis pedis, no cyanosis, +1 edema bilateral lower extremity Neuro: Awake alert oriented x3 Psych: Normal mood and affect G/U: Positive House Left IJ, right radial A-line Skin: no rashes, warm and dry Lymphatic: no cervical or axillary lymphadenopathy Results & Data ([facility]) Vital Signs (Past 12 Hours) Vital Signs Temp Pulse Pulse Resp BP Pulse Ox 07/13/19 13:00 80 15 91 07/13/19 12:46 75 15 161/86 H 89 L 07/13/19 12:00 35.8 C L 81 17 88 L 07/13/19 11:47 90 19 180/113 H 87 L 07/13/19 11:14 73 18 95 07/13/19 11:00 75 11 L 89 L 07/13/19 10:46 80 21 161/98 H 94 07/13/19 10:00 65 17 94 07/13/19 09:46 68 17 154/94 H 95 07/13/19 09:00 67 17 94 07/13/19 08:46 65 19 144/81 H 93 07/13/19 08:20 76 155/93 H 07/13/19 08:00 35.8 C L 67 16 96 07/13/19 07:49 72 20 97 07/13/19 07:46 69 13 155/93 H 97 07/13/19 07:16 73 14 95 07/13/19 07:00 67 19 95 07/13/19 05:46 77 18 124/64 93 07/13/19 05:45 76 13 93 07/13/19 05:21 76 17 132/68 95 07/13/19 04:57 79 14 120/69 95 07/13/19 04:46 36.6 C 75 19 120/69 95 07/13/19 03:46 72 18 157/89 H 96 07/13/19 02:46 72 19 152/87 H 94 07/13/19 01:59 68 16 155/91 H 95 07/13/19 01:49 65 14 94 07/13/19 04:28 07/13/19 05:49 Coding Level of Care Code Critical Care 1st 30-74 mins Diagnoses Aspiration pneumonia J69.0 Aspiration pneumonia type: unspecified Laterality: right Lung location: lower lobe of lung Acute diastolic (congestive) heart failure I50.31 Time Spent (min) 38 (1) Aspiration pneumonia Aspiration pneumonia type: unspecified Laterality: right Lung location: lower lobe of lung Qualified Code(s): J69.0 - Pneumonitis due to inhalation of food and vomit
--- NOTE | 2019-07-13 17:05 | XRay Report ---
XR chest 1V portable CLINICAL HISTORY: position of NG placement COMPARISON STUDY: No previous studies for comparison. FINDINGS: Nasogastric tube placed within the mid stomach. All remaining components the study are unch anged compared to the prior study of 6:56 AM same date. IMPRESSION: Nasogastric tube placement mid stomach. ACT 112: Negative or not required by law. The above report was generated using voice recognition software. It may contain grammatical, syntax or spelling errors. Electronically signed by: Huang Eckert M.D. 07/13/2019 5:04 PM
[2019-07-13] MEDS ORDERED: carvediloL 12.5 MG TAB PO SCH (18:00)
[2019-07-13] MEDS: AMPICILLIN/SULBACTAM SOD 3,000 MG in DEXTROSE 5% 100 ML IV SCH ×2 (19:03→22:00)
[2019-07-13] MEDS: carvediloL 12.5 MG TAB NG SCH (21:56)
[2019-07-13] MEDS: TRAZODONE HCL 100 MG TAB PO SCH (21:56)
[2019-07-14] MEDS: AMPICILLIN/SULBACTAM SOD 3,000 MG in DEXTROSE 5% 100 ML IV SCH ×4 (06:14→22:11)
[2019-07-14] MEDS: ALBUT/IPRATROP 3MG/0.5MG NEB 3 ML VIAL NEB SCH ×4 (07:09→19:26)
[2019-07-14] MEDS: BUDESONIDE 0.5 MG/2 ML VIAL (PULMICORT) NEB SCH ×2 (07:09→19:27)
[2019-07-14] MEDS: carvediloL 12.5 MG TAB NG SCH ×2 (08:19→20:44)
[2019-07-14] MEDS: HEPARIN SOD 5,000 UNIT/0.5 ML VIAL SQ SCH ×2 (08:20→20:45)
[2019-07-14] MEDS: PARoxetine HCL 10 MG TAB PO SCH (08:20)
[2019-07-14] MEDS: ATORVASTATIN 40 MG TAB NG SCH (08:20)
[2019-07-14] MEDS: ASPIRIN 81 MG CHEW NG SCH (08:21)
[2019-07-14] MEDS: CLOPIDOGREL BISULFATE 75 MG TAB PEG SCH (08:48)
[2019-07-14] MEDS: FAMOTIDINE 20 MG in SYRINGE 3 ML IV SCH (11:38)
--- NOTE | 2019-07-14 14:24 | Hospitalist Progress Note ---
Date of Service July 14, 2019 Assessment & Plan (1) Acute on chronic respiratory failure with hypoxia and hypercapnia: Placed on antibiotics for possible aspiration pneumonitis on 07/08. Patient remained intubated on 07/11. Extubated for a short period of time on , but required reintubation overnight. Bronch on 07/09 showed purulent secretions and airway collapse. Bronch samples without any growth so far. - Last fever on 07/11 around noon. - Continue Unasyn x 7-day course (End date: 07/15/2019) (2) Acute diastolic (congestive) heart failure: Echo on 07/07 was very poor, but LV function seemed normal. - Cardio consulted - Appreciate input - Holding any diuretic right now (3) CKD (chronic kidney disease) stage 3, GFR 30-59 ml/min: Baseline Cr appears to be ~1.5, eGFR 45. - Now at baseline. (4) CAD (coronary artery disease): S/p CABG at some point. Presented to [facility] on 07/03 and sent to [place] for emergency cardiac catheterization. Received 1 ATA to the mid-RCA. LAD had proximal and mid segment 70-80% lesions. Diagonal had 80% lesion. LCX also diseased. HELLER graft not evaluated at that time. Repeat cath on 07/[address] Everett showed patent HELLER -> LAD, occluded SVG -> PDA/OM. - Continue DAPT, beta-hanny, Imdur - NGT in place. Repeat FOIL CUTTER evaluation tomorrow to see how swallow goes. (5) HTN (hypertension): BP is 125/70 today. - Continue amlodipine, carvedilol, Imdur (6) Emphysema of lung: Per history, patient apparently has a history of hypercapnic respiratory failure secondary to COPD. - Monitor O2 - Continue DuoNebs (7) Gout: No hot joints noted on exam today. Patient reports no joint pain. - Continue allopurinol as able (8) DVT prophylaxis: Heparin 5000 units Q12h Admission and Anticipated Discharge Date Admission Date: July 07, 2019 Subjective Doing ok today. Feels he is somewhat short of breath. Going to use an oxyMask to try to keep from losing O2 with mouth breathing. Reports no fevers/chills, chest pain, abdominal pain, nausea, or vomiting. Physical Exam Constitutional: WD/WN, vitals as above + acute distress, cooperative and + overweight; not lethargic Eyes: EOM intact bilaterally; no conjunctival abnormality ENMT: external ear and nose normal, oropharynx normal Neck: trachea midline, no thyromegaly normal visual inspection Respiratory: + labored breathing; no respiratory distress Auscultation: lungs clear to auscultation bilaterally Cardiovascular: RRR, no murmur, no edema Gastrointestinal (Abdomen): Inspection/Auscultation: abdomen normal to inspection; abdomen not distended Musculoskeletal: no cyanosis or clubbing, extremities motor strength 5/5 Skin: no rashes, warm and dry Neurologic: moves all extremities and awake Psychiatric: Orientation: oriented to person, oriented to place and cooperative; + not oriented to time Results & Data ([facility]) Vital Signs (Past 12 Hours) Vital Signs Temp Pulse Pulse Resp BP BP BP 07/14/19 14:05 36.4 C L 64 20 121/73 07/14/19 12:00 36.9 C 59 L 20 07/14/19 11:47 57 L 17 128/64 07/14/19 10:55 82 82 18 07/14/19 10:47 71 22 128/79 07/14/19 10:00 55 L 13 07/14/19 09:46 53 L 13 123/76 07/14/19 09:00 58 L 11 L 07/14/19 08:46 56 L 13 154/89 H 07/14/19 08:00 59 L 15 07/14/19 07:46 57 L 12 149/73 H 07/14/19 07:13 60 17 07/14/19 07:12 60 17 07/14/19 07:00 58 L 13 07/14/19 05:46 56 L 14 139/79 07/14/19 05:00 60 13 07/14/19 04:46 59 L 14 139/84 07/14/19 04:41 57 L 14 07/14/19 04:00 37.6 C H 61 51 L 26 H 152/71 H 07/14/19 03:46 54 L 15 152/71 H 07/14/19 03:00 61 12 07/14/19 02:46 50 L 17 154/77 H Pulse Ox 07/14/19 14:05 92 07/14/19 12:00 88 L 07/14/19 11:47 89 L 07/14/19 10:55 94 07/14/19 10:47 90 07/14/19 10:00 92 07/14/19 09:46 07/14/19 09:00 93 07/14/19 08:46 94 07/14/19 08:00 93 07/14/19 07:46 91 07/14/19 07:13 94 07/14/19 07:12 94 07/14/19 07:00 93 07/14/19 05:46 93 07/14/19 05:00 92 07/14/19 04:46 92 07/14/19 04:41 93 07/14/19 04:00 93 07/14/19 03:46 94 07/14/19 03:00 93 07/14/19 02:46 93 PG Care Time/CCT Total # of Minutes Spent Total Time Spent with Patient: Total time spent is greater than 50% in coordination of care (as documented) at patient's floor/unit and/or counseling patient: Coding Level of Care Code 62369 Subseq Hosp Care Lvl 3 Diagnoses Acute on chronic respiratory failure with hypoxia and hypercapnia J96.21; J96.22 Acute diastolic (congestive) heart failure I50.31 CKD (chronic kidney disease) stage 3, GFR 30-59 ml/min N18.3 CAD (coronary artery disease) I25.119 Coronary Disease-Associated Artery/Lesion type: [place] artery [place] vs. transplanted heart: [place] heart Associated angina: with unspecified angina HTN (hypertension) I10 Hypertension type: unspecified Emphysema of lung J43.9 Gout M10.9 Chronicity: acute Gout etiology: unspecified cause Gout site: foot Laterality: left DVT prophylaxis Z29.9 (1) CAD (coronary artery disease) Coronary Disease-Associated Artery/Lesion type: [place] artery [place] vs. transplanted heart: [place] heart Associated angina: with unspecified angina Qualified Code(s): I25.119 - Atherosclerotic heart disease of [place] coronary [place] with unspecified angina pectoris (2) HTN (hypertension) Hypertension type: unspecified Qualified Code(s): I10 - Essential (primary) hypertension (3) Gout Chronicity: acute Gout etiology: unspecified cause Gout site: foot Laterality: left Qualified Code(s): M10.9 - Gout, unspecified
--- NOTE | 2019-07-14 16:05 | Electrocardiogram Report ---
Test Reason : Blood Pressure : / mmHG Vent. Rate : 071 BPM Atrial Rate : 071 BPM P-R Int : 144 ms QRS Dur : 092 ms QT Int : 506 ms P-R-T Axes : 036 002 -38 degrees QTc Int : 549 ms Normal sinus rhythm Inferior infarct (cited on or before 17-MAR-2019) Prolonged QT Abnormal ECG When compared with ECG of 10-JUL-2019 06:50, T wave inversion no longer evident in Anterior leads QT has lengthened Confirmed by Matthew Rutledge ([id number]) on 07/14/2019 4:05:41 PM Referred By: REFERRED SELF Confirmed By:Matthew Rutledge
[2019-07-14] MEDS: PEPTAMEN INTENSE VHP 1.0 CAL 1,000 ML BAG GT SCH (16:30)
[2019-07-14] MEDS: TRAZODONE HCL 100 MG TAB PO SCH (20:45)
[2019-07-15] MEDS ORDERED: ACETAMINOPHEN 500 MG TAB ONE (02:19)
[2019-07-15] MEDS: AMPICILLIN/SULBACTAM SOD 3,000 MG in DEXTROSE 5% 100 ML IV SCH (05:37)
[2019-07-15] MEDS: BUDESONIDE 0.5 MG/2 ML VIAL (PULMICORT) NEB SCH ×2 (07:10→18:56)
[2019-07-15] MEDS: ALBUT/IPRATROP 3MG/0.5MG NEB 3 ML VIAL NEB SCH ×4 (07:11→18:56)
[2019-07-15 07:19] LABS: BUN Creatinine Ratio 18.6 (10-20); Calcium 8.5 mg/dl (8.5-10.1); Creatinine Clr Calc Pharmacy 56.9 ml/min; Est GFR (African American) 62.2; Est GFR (Non-African American) 53.7; Magnesium 2.2 mg/dl (1.8-2.4); Potassium 3.7 mmol/L (3.5-5.1)
[2019-07-15 08:03] LABS: Hematocrit (blood only) 35.8 % (42-52); Hemoglobin 11.5 g/dL (14.0-18.0); Mean Corpuscular Hemoglobin 30.1 pg (25-34); Mean Corpuscular Hgb Conc 32.1 g/dL (32-36); Mean Corpuscular Volume 93.7 fL (80-100); Mean Platelet Volume 10.5 fL (7.4-10.4); Platelet Count 243 K/uL (130-400); RDW Standard Deviation 51.3 fL (36.4-46.3); Red Blood Count 3.82 M/uL (4.7-6.1)
[2019-07-15] MEDS: ATORVASTATIN 40 MG TAB NG SCH (08:21)
[2019-07-15] MEDS: HEPARIN SOD 5,000 UNIT/0.5 ML VIAL SQ SCH ×2 (08:21→20:35)
[2019-07-15] MEDS: carvediloL 12.5 MG TAB NG SCH ×2 (08:21→20:35)
[2019-07-15] MEDS: PARoxetine HCL 10 MG TAB PO SCH (08:22)
[2019-07-15] MEDS: CLOPIDOGREL BISULFATE 75 MG TAB PEG SCH (08:22)
[2019-07-15] MEDS: ASPIRIN 81 MG CHEW NG SCH (08:28)
[2019-07-15] MEDS: FAMOTIDINE 20 MG in SYRINGE 3 ML IV SCH (12:31)
--- NOTE | 2019-07-15 18:36 | Hospitalist Progress Note ---
Date of Service July 15, 2019 Assessment & Plan (1) Acute on chronic respiratory failure with hypoxia and hypercapnia: Placed on antibiotics for possible aspiration pneumonitis on 07/08. Patient remained intubated on 07/11. Extubated for a short period of time on , but required reintubation overnight. Bronch on 07/09 showed purulent secretions and airway collapse. Bronch samples without any growth so far. - Last fever on 07/11 around noon. - Continue Unasyn --> seen by PULM 3/5 and abx course extended-now on day #7 of ?10 -continues to require OxyMask 4-6L during daytime-wean as tolerated -continue BiPAP qhs (2) Acute diastolic (congestive) heart failure: Echo on 07/07 was very poor, but LV function seemed normal. - Cardio consulted - Appreciate input - Holding any diuretic right now as is volume down, weight down, NPO, received minimal tube feeds thus far -starting gentle IVFs as above -follow daily weights, I/Os (3) CKD (chronic kidney disease) stage 3, GFR 30-59 ml/min: With Acute kidney injury in setting of CKD stage 3, h/o solitary kidney s/p nephrectomy Medical Imaging Director peaked at 2.4 Baseline Cr appears to be ~1.5, eGFR 45. 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 Presented to [facility] on 07/03 and sent to [facility] for emergency cardiac catheterization. Received 1 ATA to the mid-RCA. LAD had proximal and mid segment 70-80% lesions. Diagonal had 80% lesion. LCX also diseased. HELLER graft not evaluated at that time. Repeat cath on 07/[address] Everett showed patent HELLER -> LAD, occluded SVG -> PDA/OM. Had ST elevations in setting of aspiration PNA inferior leads 07/09 that then resolved Recent inferior NH, Multivessel CAD, patent RCA stent on cath here - Continue DAPT, beta-hanny, but Imdur on hold for previous hypotension--> I do not think this can be crushed and placed through NGT -can restart amlodipine in the AM through NGT -continue atorvastatin (5) HTN (hypertension): BPs becoming elevated -as above, amlodipine and isosorbide have been on hold for days due to previous hypotension during sepsis/PNA in ICU - Continue carvedilol -restart amlodipine in AM if BP ok -restart isosorbide once can take po as likely cannot be crushed due to long acting formulation (6) Emphysema of lung: Per history, patient apparently has a history of hypercapnic respiratory failure secondary to COPD. Was reintubated here due to suspected hypercapnia although ABG was not performed at that time for confirmation - Monitor O2 - Continue DuoNebs (7) Gout: No hot joints noted on exam today. Patient reports no joint pain. - Continue allopurinol as able (8) Aspiration pneumonia: With acute decompensation requiring reintubation on 07/08 CXR with bibasilar consolidation R>L Now on day #7 of abx, currently Unasyn -nothing growing on cultures -continue Pulm toilet Appreciate Pulm consult Follow CXR to resolution Speech following--> had aspiration of thin and nectar thick liquids on VFSS 07/08 -plan for repeat VFSS delayed today for being on BiPAP, hopefully tomorrow can accomplish this -hold tube feeds while on BiPAP, restart when able to (9) Fall: Found on floor overnight with some delirium on evening of 07/14 No injuries Fall precautions (10) History of CVA (cerebrovascular accident): multiple old lacunar infarcts seen on head CT while in ICU -on DAPT, statin No focal deficits noted (11) DVT prophylaxis: Heparin 5000 units Q12h Admission and Anticipated Discharge Date Admission Date: July 07, 2019 Subjective Pt apparently has been getting more confused as the day goes on as per RN and overnight he had a fall in his room without any injuries. When asked about this fall, he doesn't say anything but asks when he can eat. Still has NGT in place. Tube feeds were held this AM while on BiPAP till noon. Still coughing, was not able to get video swallow due to being on BiPAP. Denies chest pain or SOB, denies abd pain now but reports he had some overnight. I discussed his case with PULM and Speech therapy. Tele with NSR, SB, rates in 60s, some PVCs Review of Systems Review of Systems: All systems reviewed & are unremarkable except as noted in HPI & below Physical Exam Constitutional: WD/WN, vitals as above + ill appearing and + obese Eyes: + anicteric sclerae ENMT: external ear and nose normal, oropharynx normal (NGT left nare,some bloody mucus from rt nare,small scab bridge of nose) Nose: + dry nasal mucous membranes Neck: trachea midline, no thyromegaly Respiratory: normal respiratory effort Auscultation: + rhonchi (lower lung serrano); no wheezes Cardiovascular: RRR, no murmur, no edema Chest (Breasts): Chest: normal inspection of chest Gastrointestinal (Abdomen): normal bowel sounds, soft, nontender, no hepatosplenomegaly Musculoskeletal: Extremities: extremities normal to inspection; no cyanosis and no clubbing Skin: no rashes, warm and dry Neurologic: moves all extremities, awake and + confused (mild); no focal motor deficits Lymphatic: no lymphedema Results & Data ([facility]) Vital Signs (Past 12 Hours) Vital Signs Temp Pulse Pulse Resp BP BP Pulse Ox 07/15/19 15:00 36.7 C 63 15 166/94 H 97 07/15/19 14:58 60 07/15/19 14:17 60 18 98 07/15/19 11:33 36.8 C 70 16 144/68 H 96 07/15/19 11:15 58 L 20 97 07/15/19 08:00 36.8 C 67 22 132/64 95 07/15/19 07:35 59 L 07/15/19 07:12 59 L 18 94 Laboratory Results labs reviewed PG Care Time/CCT Total # of Minutes Spent Total Time Spent with Patient: Total time spent is greater than 50% in coordination of care (as documented) at patient's floor/unit and/or counseling patient: Coding Level of Care Code 94800 Subseq Hosp Care Lvl 3 Diagnoses Acute on chronic respiratory failure with hypoxia and hypercapnia J96.21; J9 6.22 Acute diastolic (congestive) heart failure I50.31 CKD (chronic kidney disease) stage 3, GFR 30-59 ml/min N18.3 CAD (coronary artery disease) I25.119 Associated angina: with unspecified angina Coronary Disease-Associated Artery/Lesion type: [place] artery [place] vs. transplanted heart: [place] heart HTN (hypertension) I10 Hypertension type: unspecified Emphysema of lung J43.9 Gout M10.9 Chronicity: acute Gout etiology: unspecified cause Gout site: foot Laterality: left Aspiration pneumonia J69.0 Aspiration pneumonia type: unspecified Laterality: right Lung location: lower lobe of lung Fall W19.XXXA History of CVA (cerebrovascular accident) Z86.73 DVT prophylaxis Z29.9 (1) Gout Chronicity: acute Gout etiology: unspecified cause Gout site: foot Laterality: left Qualified Code(s): M10.9 - Gout, unspecified (2) CAD (coronary artery disease) Associated angina: with unspecified angina Coronary Disease-Associated Artery/Lesion type: [place] artery [place] vs. transplanted heart: [place] heart Qualified Code(s): I25.119 - Atherosclerotic heart disease of [place] coronary artery with unspecified angina pectoris (3) Aspiration pneumonia Aspiration pneumonia type: unspecified Laterality: right Lung location: lower lobe of lung Qualified Code(s): J69.0 - Pneumonitis due to inhalation of food and vomit (4) HTN (hypertension) Hypertension type: unspecified Qualified Code(s): I10 - Essential (primary) hypertension
--- NOTE | 2019-07-15 19:23 | Pulmonology Progress Note ---
Date of Service July 15, 2019 Assessment & Plan (1) Acute on chronic respiratory failure with hypoxia and hypercapnia: Patient originally in the intensive care unit and intubated for hypoxic respiratory failure with hypercapnia Patient was extubated on 07/10/2019 but required reintubation later that night secondary to hypercapnia Patient was then extubated again 07/12/2019 and has remained on combination therapy with BiPAP and Oxymask BAL from bronchoscopy 07/09/2019 is negative for any growth Blood cultures from admission are negative x2 Hypercapnia has been resolved since 07/08/2019 Would continue BiPAP at bedtime PRN Continue aspiration precautions Patient reached empiric stop date on Unasyn today. We will continue Unasyn at this time Procalcitonin was slightly elevated at 07/12/2019 at 0.78. Repeat procalcitonin level with a.m. labs (2) COPD with emphysema: Continue duo nebs Titrate SaO2 to 88 to 92% Continue to follow clinically Thank you for including us in the care of this patient. We will follow along with you. Please refer to Dr. De La Vega's addendum for further recommendations. Supervising Physician Co-Signing Physician Notes Patient seen and discussed with Timmy Smith, Known patient to our service as was intubated twice in the MICU for hypercapnic respiratory failure. Patient has poor mentation and has failed swallow evaluation on multiple locations. Patient is high risk for aspirations and without BiPAP high risk for respiratory failure. I think palliative care consult here to define goals of care would be appropriated given that he might end up with PEG and even trach if there is any clinical deterioration in future. Subjective Attending: Dr. De La Vega There is a 68-year-old male that was previous seen by us in the intensive care unit. He had respiratory failure and was intubated, extubated, reintubated. He was ultimately extubated 07/12/2019 and has been requiring BiPAP at bedtime and Oxymask during the day. The patient does have metabolic encephalopathy and this has limited activity and progress. This has improved with decreasing hypercapnia but patient still has some level of encephalopathy at this time. Patient is currently pending discharge to a rehab center. He has aspiration and was scheduled for a video swallow study today. Patient was still on BiPAP into this morning. Consequently, we were reconsulted to evaluate from a pulmonary perspective. Patient was seen at bedside and was oxygenating at 98% with an Oxymask at 10 L. I reduce the Oxymask to 4 L and patient was oxygenating well with an SaO2 of approximately 94%. Patient denies any shortness of breath. He has no chest pain. He is thirsty and asked for drinks and/or ice chips. Nursing is providing 1-2 ice chips at a time with no apparent aspiration. Patient is awaiting follow-up video swallow study. The patient has no further acute complaints. Review of Systems Review of Systems: All systems reviewed & are unremarkable except as noted in HPI & below Physical Exam Physical Exam: Constitutional: No acute distress HEENT: PERRLA, EOMI Respiratory system: Decreased air entry bilaterally, positive bilateral lower lobe crackles, no wheeze, no rhonchi CVS: S1-S2 positive, no murmurs or gallops Abdomen: Soft, nontender, nondistended, positive bowel sounds x4 Extremities: +2 pulses bilaterally radialis/ dorsalis pedis, no cyanosis, +1 edema bilateral lower extremity Neuro: Awake alert oriented x3 Psych: Normal mood and affect G/U: Positive House Left IJ, right radial A-line Skin: no rashes, warm and dry Lymphatic: no cervical or axillary lymphadenopathy Results & Data ([facility]) Vital Signs (Past 12 Hours) Vital Signs Temp Pulse Pulse Resp BP BP Pulse Ox 07/15/19 15:00 36.7 C 63 15 166/94 H 97 07/15/19 14:58 60 07/15/19 14:17 60 18 98 07/15/19 11:33 36.8 C 70 16 144/68 H 96 07/15/19 11:15 58 L 20 97 07/15/19 08:00 36.8 C 67 22 132/64 95 07/15/19 07:35 59 L Laboratory Results 07/15/19 06:18 07/15/19 06:18 Diagnostic Findings No further diagnostic imaging since 07/13/2019 PG Care Time/CCT Total # of Minutes Spent Total Time Spent with Patient: Total time spent is greater than 50% in coordination of care (as documented) at patient's floor/unit and/or counseling patient: Coding Level of Care Code 91975 Subseq Hosp Care Lvl 2 Diagnoses Acute on chronic respiratory failure with hypoxia and hypercapnia J96.21; J96.22 COPD with emphysema J43.9
[2019-07-15] MEDS: AMPICILLIN/SULBACTAM SOD 3,000 MG in 0.9 % SODIUM CHLORIDE 100 ML IV SCH (20:33)
[2019-07-15] MEDS: TRAZODONE HCL 100 MG TAB PO SCH (20:35)
[2019-07-15] MEDS ORDERED: ACETAMINOPHEN 65 ML IV PRN (21:34)
[2019-07-15] MEDS ORDERED: ACETAMINOPHEN 1,000 MG/100 ML VIAL IV PRN (21:45)
[2019-07-16] MEDS: AMPICILLIN/SULBACTAM SOD 3,000 MG in 0.9 % SODIUM CHLORIDE 100 ML IV SCH ×4 (03:09→22:35)
[2019-07-16 06:06] LABS: Basophils # (auto) 0.01 K/uL (0-0.2); Basophils % (auto) 0.2 %; Eosinophils % (auto) 3.2 %; Hematocrit (blood only) 37.8 % (42-52); Hemoglobin 11.8 g/dL (14.0-18.0); Immature Granulocytes # (auto) 0.03 K/uL (0.00-0.02); Immature Granulocytes % (auto) 0.5 %; Lymphocytes # (auto) 1.24 K/uL (1.2-3.4); Lymphocytes % (auto) 19.6 %; Mean Corpuscular Hemoglobin 29.5 pg (25-34); Mean Corpuscular Hgb Conc 31.2 g/dL (32-36); Mean Corpuscular Volume 94.5 fL (80-100); Mean Platelet Volume 9.7 fL (7.4-10.4); Monocytes # (auto) 0.73 K/uL (0.11-0.59); Monocytes % (auto) 11.5 %; Neutrophils # (auto) 4.13 K/uL (1.4-6.5); Platelet Count 255 K/uL (130-400); RDW Coefficient of Variation 14.7 % (11.5-14.5); RDW Standard Deviation 50.8 fL (36.4-46.3); White Blood Count 6.34 K/uL (4.8-10.8)
[2019-07-16] MEDS ORDERED: D5W AND 1/2NSS 1,000 ML IV SCH (06:30)
[2019-07-16 06:41] LABS: BUN Creatinine Ratio 16.9 (10-20); Calcium 8.3 mg/dl (8.5-10.1); Creatinine Clr Calc Pharmacy 62.4 ml/min; Est GFR (African American) 69.7; Est GFR (Non-African American) 60.1; Potassium 3.9 mmol/L (3.5-5.1)
[2019-07-16] MEDS: BUDESONIDE 0.5 MG/2 ML VIAL (PULMICORT) NEB SCH ×2 (06:58→19:25)
[2019-07-16] MEDS: ALBUT/IPRATROP 3MG/0.5MG NEB 3 ML VIAL NEB SCH ×4 (06:58→19:21)
--- NOTE | 2019-07-16 07:27 | XRay Report ---
XR chest 1V portable CLINICAL HISTORY: 68 years-old Male presenting with Persistent hypoxia. TECHNIQUE: Portable upright AP view of the chest was obtained. COMPARISON: 07/13/2019. FINDINGS: Nasogastric tube descends below the diaphragm, terminus not visualized. Several external leads projec t over the left upper quadrant. Median sternotomy wires and mediastinal surgical clips noted. Atheros clerosis of the aortic arch. Cardiac silhouette mildly enlarged. Right hilar prominence and added den sity in the left retrocardiac region. Trace pleural effusions may be present. No pneumothorax. Osseou s structures normal. Upper abdomen normal. IMPRESSION: 1. Right hilar/infrahilar density, possibly underlying infiltrate and/or lymphadenopathy. This is un changed over several prior exams. Consider cross-sectional imaging given the persistence of this find ing. 2. Persistent left retrocardiac density, overall slightly decreasing over several prior exams. 3. Cardiomegaly. No advanced congestive change. 4. Appropriately positioned nasogastric tube. ACT 112: Negative or not required by law. Results electronically sent 07/16/2019 7:25 AM to: Timmy Smith PA-C Electronically signed by: Brayden Márquez M.D. 07/16/2019 7:25 AM
[2019-07-16] MEDS: ATORVASTATIN 40 MG TAB NG SCH (08:11)
[2019-07-16] MEDS: ASPIRIN 81 MG CHEW NG SCH (08:11)
[2019-07-16] MEDS: carvediloL 12.5 MG TAB NG SCH (08:12)
[2019-07-16] MEDS: PARoxetine HCL 10 MG TAB PO SCH (08:12)
[2019-07-16] MEDS: CLOPIDOGREL BISULFATE 75 MG TAB PEG SCH (08:12)
[2019-07-16] MEDS: HEPARIN SOD 5,000 UNIT/0.5 ML VIAL SQ SCH ×2 (08:12→22:36)
[2019-07-16] MEDS: AMLODIPINE BESYLATE 5 MG TAB PO SCH (10:51)
[2019-07-16] MEDS: PEPTAMEN INTENSE VHP 1.0 CAL 1,000 ML BAG GT SCH (11:03)
[2019-07-16] MEDS: FAMOTIDINE 20 MG in SYRINGE 3 ML IV SCH (11:27)
--- NOTE | 2019-07-16 11:53 | Hospitalist Progress Note ---
Date of Service July 16, 2019 Assessment & Plan (1) Aspiration pneumonia: With acute decompensation requiring reintubation on 07/08. CXR with bibasilar consolidation R>L. - Plan for repeat VFSS today - Hold tube feeds while on BiPAP, restart when able to - Abx as below (2) Acute on chronic respiratory failure with hypoxia and hypercapnia: Placed on antibiotics for possible aspiration pneumonitis on 07/08. Patient remained intubated on 07/11. Extubated for a short period of time on , but required reintubation overnight. Bronch on 07/09 showed purulent secretions and airway collapse. Bronch samples without any growth so far. - Last fever on 07/11 around noon. - Continue Unasyn x 10-day course (End date: 07/17/2019) (3) Acute diastolic (congestive) heart failure: Echo on 07/07 was very poor, but LV function seemed normal. - Cardio consulted - Appreciate input - Holding any diuretic right now -> He is self-diuresing right now (likely from the high solute load of all the IV fludis). Weight is down to 100.6 kg (lowest this admission). Cumulative I&Os reflect this as well, with -4L since admission. (4) CKD (chronic kidney disease) stage 3, GFR 30-59 ml/min: Baseline Cr appears to be ~1.2 - 1.5, eGFR 45. - Now at baseline -> On 07/15, Cr was 1.2. (5) CAD (coronary artery disease): S/p CABG at some point. Presented to [facility] on 07/03 and sent to [place] for emergency cardiac catheterization. Received 1 ATA to the mid-RCA. LAD had proximal and mid segment 70-80% lesions. Diagonal had 80% lesion. LCX also diseased. HELLER graft not evaluated at that time. Repeat cath on 07/[address] Everett showed patent HELLER -> LAD, occluded SVG -> PDA/OM. - Continue DAPT, beta-hanny, Imdur - NGT in place. Swallow study today. (6) HTN (hypertension): BP is 125/70 today. - Continue amlodipine, carvedilol, Imdur - Lowered Carvedilol today for bradycardia in the 40s. Stable BP though. (7) Emphysema of lung: Per history, patient apparently has a history of hypercapnic respiratory failure secondary to COPD. - Monitor O2 - Continue DuoNebs (8) Gout: No hot joints noted on exam today. Patient reports no joint pain. - Continue allopurinol as able (9) History of CVA (cerebrovascular accident): Multiple old lacunar infarcts seen on head CT while in ICU. - Continue DAPT, statin (10) DVT prophylaxis: Heparin 5000 units Q12h Admission and Anticipated Discharge Date Admission Date: July 07, 2019 Subjective Doing better today. Less shortness of breath. Still very dry mouth and would like to drink. Reports no fevers/chills, chest pain, abdominal pain, nausea, or vomiting. Physical Exam Constitutional: WD/WN, vitals as above cooperative and + overweight; no acute distress and not lethargic Eyes: EOM intact bilaterally; no conjunctival abnormality ENMT: external ear and nose normal, oropharynx normal Neck: trachea midline, no thyromegaly normal visual inspection Respiratory: normal respiratory effort, lungs clear to auscultation + labored breathing; no respiratory distress Auscultation: lungs clear to auscultation bilaterally Cardiovascular: RRR, no murmur, no edema Gastrointestinal (Abdomen): Inspection/Auscultation: abdomen normal to inspection; abdomen not distended Musculoskeletal: no cyanosis or clubbing, extremities motor strength 5/5 Skin: no rashes, warm and dry Neurologic: moves all extremities and awake Psychiatric: Orientation: oriented to person, oriented to place and cooperative; + not oriented to time Results & Data ([facility]) Vital Signs (Past 12 Hours) Vital Signs Temp Pulse Pulse Resp BP Pulse Ox 07/16/19 11:32 36.7 C 79 22 154/80 H 93 07/16/19 07:32 61 07/16/19 07:04 37.0 C 65 19 155/93 H 97 07/16/19 06:59 63 63 16 96 07/16/19 06:47 58 L 153/91 H 96 07/16/19 03:15 95 07/16/19 03:13 36.7 C 77 22 172/85 H 95 07/16/19 00:53 36.5 C 77 21 94 07/16/19 00:00 72 PG Care Time/CCT Total # of Minutes Spent Total Time Spent with Patient: Total time spent is greater than 50% in coordination of care (as documented) at patient's floor/unit and/or counseling patient: Coding Level of Care Code 11867 Subseq Hosp Care Lvl 2 Diagnoses Aspiration pneumonia J69.0 Aspiration pneumonia type: unspecified Laterality: right Lung location: lower lobe of lung Acute on chronic respiratory failure with hypoxia and hypercapnia J96.21; J96.22 Acute diastolic (congestive) heart failure I50.31 CKD (chronic kidney disease) stage 3, GFR 30-59 ml/min N18.3 CAD (coronary artery disease) I25.119 Coronary Disease-Associated Artery/Lesion type: [place] artery [place] vs. transplanted heart: [place] heart Associated angina: with unspecified angina HTN (hypertension) I10 Hypertension type: unspecified Emphysema of lung J43.9 Gout M10.9 Chronicity: acute Gout etiology: unspecified cause Gout site: foot Laterality: left History of CVA (cerebrovascular accident) Z86.73 DVT prophylaxis Z29.9 (1) CAD (coronary artery disease) Coronary Disease-Associated Artery/Lesion type: [place] artery [place] vs. transplanted heart: [place] heart Associated angina: with unspecified angina Qualified Code(s): I25.119 - Atherosclerotic heart disease of [place] coronary artery with unspecified angina pectoris (2) HTN (hypertension) Hypertension type: unspecified Qualified Code(s): I10 - Essential (primary) hypertension (3) Gout Chronicity: acute Gout etiology: unspecified cause Gout site: foot Laterality: left Qualified Code(s): M10.9 - Gout, unspecified (4) Aspiration pneumonia Aspiration pneumonia type: unspecified Laterality: right Lung location: lower lobe of lung Qualified Code(s): J69.0 - Pneumonitis due to inhalation of food and vomit
--- NOTE | 2019-07-16 12:47 | Pulmonology Progress Note ---
Date of Service July 16, 2019 Assessment & Plan (1) Acute on chronic respiratory failure with hypoxia and hypercapnia: Procal negative. Likely chronic reflux. Aspiration precautions. Recommend CT chest given persistent RML infiltrate. May need bronch to eval RLL/RML infiltrate. Will await CT chest. Needs PFTs as outpatient if not done already. Not unreasonable to discharge on LAMA inhaler. BiPAP at night. (2) COPD with emphysema: Continue duo nebs Titrate SaO2 to 88 to 92% Continue to follow clinically (3) Aspiration into airway: Subjective Patient laying in bed. Saturating 93% on nasal cannula. No chest pain, fevers or chills. Notes he swallows without issue. Set to undergo MBS today. Physical Exam Physical Exam: GENERAL : No acute distress EYES: No icterus, gaze conjugate NOSE: No evidence of epistaxis. Abrasion on bridge of nose from BiPAP mask MOUTH: No lesions or candidiasis. Mucosa dry. Oxymask in place NECK: Supple LUNGS: CTA B/L, no wheezes, rales or rhonchi HEART: Regular, rate controlled with a rate in the 60s. ABDOMEN: Soft, NT, ND, BS Present EXTREMITIES: No LE edema, pedal pulses intact NEURO: Awake and alert. Patient will give name and date of but no other information. Results & Data ([facility]) Vital Signs (Past 12 Hours) Vital Signs Temp Pulse Pulse Resp BP Pulse Ox 07/16/19 11:32 98.1 F 79 22 154/80 H 93 07/16/19 07:32 61 07/16/19 07:04 98.6 F 65 19 155/93 H 97 07/16/19 06:59 63 63 16 96 07/16/19 06:47 58 L 153/91 H 96 07/16/19 03:15 95 07/16/19 03:13 98.1 F 77 22 172/85 H 95 07/16/19 00:53 97.7 F 77 21 94 PG Care Time/CCT Total # of Minutes Spent Total Time Spent with Patient: Total time spent is greater than 50% in coordination of care (as documented) at patient's floor/unit and/or counseling patient: Coding Level of Care Code 40729 Subseq Hosp Care Lvl 3 Diagnoses Acute on chronic respiratory failure with hypoxia and hypercapnia J96.21; J96.22 COPD with emphysema J43.9 Aspiration into airway T17.909S
--- NOTE | 2019-07-16 14:00 | CT Scan Report ---
CT chest wo con CLINICAL HISTORY: 68 years-old Male presenting with persistent rml infiltrate. TECHNIQUE: Multidetector CT imaging of the chest was performed without the use of intravenous contras t. IV contrast: None. One or more dose lowering techniques were used consistent with the principles o f ALARA (as low as reasonably achievable), including automatic exposure control, mA or kV adjustment to individual patient size, and/or use of iterative reconstruction. COMPARISON: Chest x-ray from earlier today. CT DOSE (mGy.cm): The estimated cumulative dose is 673.25 mGycm. FINDINGS: Folder Taper Operator topogram: Nasogastric tube terminates in the stomach with contrast noted in the esophagus and s tomach. Cholecystectomy clips. Median sternotomy wires. Soft tissues: Normal thyroid. Nasogastric tube descends below the diaphragm terminating in the body o f the stomach. Contrast is noted within the esophagus and stomach. No extravasation of contrast in th e mediastinum or upper abdomen. No axillary, supraclavicular, or mediastinal lymphadenopathy. Evaluat ion of the denise limited without intravenous contrast. Atherosclerosis of the aorta. Multichamber enla rgement of the heart. Coronary artery and aortic valve calcification. Postsurgical changes of coronar y artery bypass grafting. Evaluation of graft patency cannot be made in the absence of intravenous co ntrast. Trace right and small left pleural effusions. Cholecystectomy clips. Lungs and airways: No pneumothorax. Narrowing of subsegmental and segmental airways in the lower lobe s while the remainder of the central airways are patent. Pulmonary arteries enlarged relative to hernan cent bronchi. No interlobular septal thickening. Groundglass opacities in a peribronchial vascular di stribution in the right upper lobe. Extensive bilateral lower lobe atelectasis greater on the left. R espiratory motion artifact compromises evaluation of the lung parenchyma. Musculoskeletal: Degenerative changes of the spine. Old healed sternotomy. IMPRESSION: 1. Peribronchovascular groundglass infiltrates in the right upper lobe. Atypical infectious etiologi es to be considered. 2. Extensive bilateral lower lobe atelectasis with near complete lobar collapse. 3. Trace right and small left pleural effusions. 4. Cardiomegaly with postsurgical changes of CABG. Volume overload without advanced congestive pitts e. ACT 112: Negative or not required by law. Electronically signed by: Brayden Márquez M.D. 07/16/2019 1:58 PM
--- NOTE | 2019-07-16 14:14 | XRay Report ---
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 No acute fracture, dislocation or osteochond ral defect. Large enthesophytes of the calcaneus with at least mild osteoarthritis of the midfoot. Sm all joint effusion of the ankle with mild circumferential soft tissue swelling. IMPRESSION: Mild soft tissue swelling and small joint effusion without acute fracture or dislocation. ACT 112: Negative or not required by law. The above report was generated using voice recognition software. It may contain grammatical, syntax o r spelling errors. Electronically signed by: Roldan Maldonado M.D. 07/16/2019 2:13 PM
--- NOTE | 2019-07-16 14:30 | Fluoroscopy Report ---
FL video swallow HISTORY: Assess for aspiration. ? start oral intake TECHNIQUE: Video fluoroscopic evaluation of swallowing was performed in the AP and lateral projection s by the speech pathology staff. The patient is fed nectar-thick and thin liquid barium, a barium coa armando wafer, and barium pudding. FLUOROSCOPY TIME: 2.3 minutes. A cine loop submitted. COMPARISON STUDY: None. FINDINGS: Nasogastric tube is in place. There are a few episodes of incomplete epiglottic deflection which could be due to the nasogastric tube. Moderate hypopharyngeal residue seen within the examinati on. Multiple episodes of claudia silent aspiration IMPRESSION: 1. Multiple episodes of silent aspiration, some of which could be due to the incomplete epiglottic de flection from the indwelling nasogastric tube. 2. Please see the speech pathologist report for detailed findings and recommendations. ACT 112: Negative or not required by law. Electronically signed by: Evan Ramos M.D. 07/16/2019 2:29 PM
--- NOTE | 2019-07-16 17:08 | Billing Data ---
Date of Service July 16, 2019 Coding Level of Care Code 01758 Prolonged Care (int'l) Comment Time in the room with patient: 9:00am - 9:15am and 4:00pm to 4:20pm.
[2019-07-16] MEDS: TRAZODONE HCL 100 MG TAB PO SCH (22:36)
[2019-07-16] MEDS: carvediloL 6.25 MG TAB NG SCH (22:36)
[2019-07-17] MEDS: AMPICILLIN/SULBACTAM SOD 3,000 MG in 0.9 % SODIUM CHLORIDE 100 ML IV SCH ×3 (03:26→14:20)
[2019-07-17 06:16] LABS: Hematocrit (blood only) 36.2 % (42-52); Hemoglobin 12.1 g/dL (14.0-18.0); Mean Corpuscular Hemoglobin 31.3 pg (25-34); Mean Corpuscular Hgb Conc 33.4 g/dL (32-36); Mean Corpuscular Volume 93.8 fL (80-100); Mean Platelet Volume 9.5 fL (7.4-10.4); Platelet Count 277 K/uL (130-400); RDW Coefficient of Variation 14.7 % (11.5-14.5); Red Blood Count 3.86 M/uL (4.7-6.1); White Blood Count 7.29 K/uL (4.8-10.8)
[2019-07-17 07:00] LABS: Calcium 8.3 mg/dl (8.5-10.1); Est GFR (African American) 71.1; Est GFR (Non-African American) 61.3; Magnesium 2.1 mg/dl (1.8-2.4); Potassium 3.9 mmol/L (3.5-5.1)
[2019-07-17 07:01] LABS: Phosphorus 2.6 mg/dl (2.5-4.9)
[2019-07-17] MEDS: BUDESONIDE 0.5 MG/2 ML VIAL (PULMICORT) NEB SCH ×2 (07:10→19:17)
[2019-07-17] MEDS: ALBUT/IPRATROP 3MG/0.5MG NEB 3 ML VIAL NEB SCH ×4 (07:10→19:17)
[2019-07-17] MEDS: ASPIRIN 81 MG CHEW NG SCH (08:14)
[2019-07-17] MEDS: PARoxetine HCL 10 MG TAB PO SCH (08:15)
[2019-07-17] MEDS: AMLODIPINE BESYLATE 5 MG TAB PO SCH (08:15)
[2019-07-17] MEDS: ATORVASTATIN 40 MG TAB NG SCH (08:15)
[2019-07-17] MEDS: carvediloL 6.25 MG TAB NG SCH ×2 (08:15→20:14)
[2019-07-17] MEDS: CLOPIDOGREL BISULFATE 75 MG TAB PEG SCH (08:16)
[2019-07-17] MEDS: HEPARIN SOD 5,000 UNIT/0.5 ML VIAL SQ SCH ×2 (08:16→20:14)
[2019-07-17] MEDS: ACETAMINOPHEN SOLN 160 MG/5 ML BTL NG PRN ×2 (11:06→21:21)
--- NOTE | 2019-07-17 13:29 | Hospitalist Progress Note ---
Date of Service July 17, 2019 Assessment & Plan (1) Aspiration pneumonia: With acute decompensation requiring reintubation on 07/08. CXR with bibasilar consolidation R>L. - VFSS on 07/15 indicated multiple episodes of silent aspiration, some of which could be due to the incomplete epiglottic deflection from the indwelling nasogastric tube. - DESPITE study tests, the patient was insistent on eating and was felt to be capable of making that determination. - On 07/16, his swallow is improving. Per RN, he was able to eat breakfast with minimal coughing. - Finished Unasyn x 10-day course today (07/17/2019). (2) Acute on chronic respiratory failure with hypoxia and hypercapnia: Placed on antibiotics for possible aspiration pneumonitis on 07/08. Patient remained intubated on 07/11. Extubated for a short period of time on , but required reintubation overnight. Bronch on 07/09 showed purulent secretions and airway collapse. Bronch samples without any growth so far. - Last fever on 07/11 around noon. - Abx as above (3) Acute diastolic (congestive) heart failure: Echo on 07/07 was very poor, but LV function seemed normal. - Cardio consulted - Appreciate input - Holding any diuretic right now -> He is self-diuresing right now (possibly from the high solute load of all the IV fludis). Weight is down to 99.4 kg (lowest this admission). Cumulative I&Os reflect this as well, with -4L since ad mission. (4) CKD (chronic kidney disease) stage 3, GFR 30-59 ml/min: Baseline Cr appears to be ~1.2 - 1.5, eGFR 45. - Now at baseline -> On 07/16, Cr was 1.2. (5) CAD (coronary artery disease): S/p CABG at some point. Presented to [facility] on 07/03 and sent to [place] for emergency cardiac catheterization. Received 1 ATA to the mid-RCA. LAD had proximal and mid segment 70-80% lesions. Diagonal had 80% lesion. LCX also diseased. HELLER graft not evaluated at that time. Repeat cath on 07/[address] Everett showed patent HELLER -> LAD, occluded SVG -> PDA/OM. - Continue DAPT, beta-hanny, Imdur - NGT in place. Swallow study on 07/15 as detailed above. (6) HTN (hypertension): BP is 125/70 today. - Continue amlodipine, carvedilol, Imdur - Lowered carvedilol to 6.25 mg PO BID on 07/15 for bradycardia in the 40s. Stable BP though. Better today. (7) Emphysema of lung: Per history, patient apparently has a history of hypercapnic respiratory failure secondary to COPD. - Monitor O2 - Continue DuoNebs (8) Gout: No hot joints noted on exam today. Patient reports no joint pain. - Continue allopurinol as able (9) History of CVA (cerebrovascular accident): Multiple old lacunar infarcts seen on head CT while in ICU. - Continue DAPT, statin (10) DVT prophylaxis: Heparin 5000 units Q12h Admission and Anticipated Discharge Date Admission Date: July 07, 2019 Subjective Is in pretty good spirits this morning. He is happy to be able to eat and drink. He denies shortness of breath. Has a thick cough that was not worse with eating this morning. Reports no fevers/chills, chest pain, shortness of breath, abdominal pain, nausea, or vomiting. Physical Exam Constitutional: WD/WN, vitals as above cooperative and + overweight; no acute distress and not lethargic Eyes: EOM intact bilaterally; no conjunctival abnormality ENMT: external ear and nose normal, oropharynx normal Neck: trachea midline, no thyromegaly normal visual inspection Respiratory: + cough (Wet-sounding); no respiratory distress and no labored breathing Auscultation: + rhonchi Cardiovascular: RRR, no murmur, no edema Gastrointestinal (Abdomen): Inspection/Auscultation: abdomen normal to inspection; abdomen not distended Musculoskeletal: no cyanosis or clubbing, extremities motor strength 5/5 Skin: no rashes, warm and dry Neurologic: moves all extremities and awake Psychiatric: Orientation: oriented to person, oriented to place and cooperative Results & Data ([facility]) Vital Signs (Past 12 Hours) Vital Signs Temp Pulse Pulse Resp BP Pulse Ox 07/17/19 11:13 56 L 14 91 07/17/19 07:26 49 L 07/17/19 07:11 55 L 55 L 14 91 07/17/19 07:06 36.3 C L 51 L 15 144/82 H 92 07/17/19 04:18 37.0 C 68 18 141/81 H 96 07/17/19 03:35 55 L 14 95 PG Care Time/CCT Total # of Minutes Spent Total Time Spent with Patient: Total time spent is greater than 50% in coordination of care (as documented) at patient's floor/unit and/or counseling patient: Coding Level of Care Code 91685 Subseq Hosp Care Lvl 3 Diagnoses Aspiration pneumonia J69.0 Aspiration pneumonia type: unspecified Laterality: right Lung location: lower lobe of lung Acute on chronic respiratory failure with hypoxia and hypercapnia J96.21; J96.22 Acute diastolic (congestive) heart failure I50.31 CKD (chronic kidney disease) stage 3, GFR 30-59 ml/min N18.3 CAD (coronary artery disease) I25.119 Associated angina: with unspecified angina Coronary Disease-Associated Artery/Lesion type: [place] artery [place] vs. transplanted heart: [place] heart HTN (hypertension) I10 Hypertension type: unspecified Emphysema of lung J43.9 Gout M10.9 Chronicity: acute Gout etiology: unspecified cause Gout site: foot Laterality: left History of CVA (cerebrovascular accident) Z86.73 DVT prophylaxis Z29.9 (1) Gout Chronicity: acute Gout etiology: unspecified cause Gout site: foot Laterality: left Qualified Code(s): M10.9 - Gout, unspecified (2) CAD (coronary artery disease) Associated angina: with unspecified angina Coronary Disease-Associated Artery/Lesion type: [place] artery [place] vs. transplanted heart: [place] heart Qualified Code(s): I25.119 - Atherosclerotic heart disease of [place] coronary artery with unspecified angina pectoris (3) Aspiration pneumonia Aspiration pneumonia type: unspecified Laterality: right Lung location: lower lobe of lung Qualified Code(s): J69.0 - Pneumonitis due to inhalation of food and vomit (4) HTN (hypertension) Hypertension type: unspecified Qualified Code(s): I10 - Essential (primary) hypertension
[2019-07-17] MEDS: PEPTAMEN INTENSE VHP 1.0 CAL 1,000 ML BAG GT SCH (16:14)
[2019-07-17] MEDS: TRAZODONE HCL 100 MG TAB PO SCH (20:14)
[2019-07-17] MEDS ORDERED: ACETAMINOPHEN 500 MG TAB ONE (21:07)
[2019-07-18] MEDS: PEPTAMEN INTENSE VHP 1.0 CAL 1,000 ML BAG GT SCH (05:58)
[2019-07-18] MEDS: ALBUT/IPRATROP 3MG/0.5MG NEB 3 ML VIAL NEB SCH ×4 (07:08→19:16)
[2019-07-18] MEDS: BUDESONIDE 0.5 MG/2 ML VIAL (PULMICORT) NEB SCH ×2 (07:08→19:16)
[2019-07-18] MEDS: carvediloL 6.25 MG TAB NG SCH ×2 (08:24→20:23)
[2019-07-18] MEDS: PARoxetine HCL 10 MG TAB PO SCH (08:24)
[2019-07-18] MEDS: ATORVASTATIN 40 MG TAB NG SCH (08:25)
[2019-07-18] MEDS: AMLODIPINE BESYLATE 5 MG TAB PO SCH (08:25)
[2019-07-18] MEDS: CLOPIDOGREL BISULFATE 75 MG TAB PEG SCH (08:25)
[2019-07-18] MEDS: ASPIRIN 81 MG CHEW NG SCH (08:30)
[2019-07-18] MEDS: HEPARIN SOD 5,000 UNIT/0.5 ML VIAL SQ SCH ×2 (08:33→20:24)
[2019-07-18] MEDS: ACETAMINOPHEN SOLN 160 MG/5 ML BTL NG PRN ×2 (13:58→20:37)
--- NOTE | 2019-07-18 15:44 | Hospitalist Progress Note ---
Date of Service July 18, 2019 Assessment & Plan (1) Aspiration pneumonia: With acute decompensation requiring reintubation on 07/08. CXR with bibasilar consolidation R>L. - VFSS on 07/15 indicated multiple episodes of silent aspiration, some of which could be due to the incomplete epiglottic deflection from the indwelling nasogastric tube. - DESPITE study tests, the patient was insistent on eating and was felt to be capable of making that determination. - On 07/16, his swallow is improving. Per RN, he was able to eat breakfast with minimal coughing. - Finished Unasyn x 10-day course on 07/17/2019. - Doing well today. Good respiratory status. No major concerns. Will get speech follow up tomorrow. (2) Acute on chronic respiratory failure with hypoxia and hypercapnia: Placed on antibiotics for possible aspiration pneumonitis on 07/08. P atient remained intubated on 07/11. Extubated for a short period of time on , but required reintubation overnight. Bronch on 07/09 showed purulent secretions and airway collapse. Bronch samples without any growth so far. - Last fever on 07/11 around noon. (3) Acute diastolic (congestive) heart failure: Echo on 07/07 was very poor, but LV function seemed normal. - Cardio consulted - Appreciate input - Holding any diuretic right now -> He is self-diuresing right now (possibly from the high solute load of all the IV fluids). Weight is down to 99.7 kg (lowest this admission). Cumulative I&Os reflect this as well, with -4L since admission. (4) CKD (chronic kidney disease) stage 3, GFR 30-59 ml/min: Baseline Cr appears to be ~1.2 - 1.5, eGFR 45. - Now at baseline -> On 07/16, Cr was 1.2. (5) CAD (coronary artery disease): S/p CABG at some point. Presented to [facility] on 07/03 and sent to [place] for emergency cardiac catheterization. Received 1 ATA to the mid-RCA. LAD had proximal and mid segment 70-80% lesions. Diagonal had 80% lesion. LCX also diseased. HELLER graft not evaluated at that time. Repeat cath on 07/[address] Everett showed patent HELLER -> LAD, occluded SVG -> PDA/OM. - Continue DAPT, beta-hanny, Imdur - NGT in place. Swallow study on 07/15 as detailed above. Hopefully pull the tube tomorrow. (6) HTN (hypertension): BP is 135/90 today. - Continue amlodipine, carvedilol, Imdur - Lowered carvedilol to 6.25 mg PO BID on 07/15 for bradycardia in the 40s. Stable BP though. Better today. (7) Emphysema of lung: Per history, patient apparently has a history of hypercapnic respiratory failure secondary to COPD. - Monitor O2 - Continue DuoNebs (8) Gout: No hot joints noted on exam today. Patient reports no joint pain. - Continue allopurinol as able (9) History of CVA (cerebrovascular accident): Multiple old lacunar infarcts seen on head CT while in ICU. - Continue DAPT, statin (10) DVT prophylaxis: Heparin 5000 units Q12h Admission and Anticipated Discharge Date Admission Date: July 07, 2019 Subjective Doing well today. Continues to tolerate his diet well without aspiration. Will give tube feeds one more day as it is only mildly bothering him. Reports no fevers/chills, chest pain, shortness of breath, abdominal pain, nausea, or vomiting. Physical Exam Constitutional: WD/WN, vitals as above cooperative and + overweight; no acute distress and not lethargic Eyes: EOM intact bilaterally; no conjunctival abnormality ENMT: external ear and nose normal, oropharynx normal Neck: trachea midline, no thyromegaly normal visual inspection Respiratory: normal respiratory effort, lungs clear to auscultation no respiratory distress, no labored breathing and no cough (Wet-sounding) Cardiovascular: RRR, no murmur, no edema Gastrointestinal (Abdomen): Inspection/Auscultation: abdomen normal to inspection; abdomen not distended Musculoskeletal: no cyanosis or clubbing, extremities motor strength 5/5 Skin: no rashes, warm and dry Neurologic: moves all extremities and awake Psychiatric: Orientation: oriented to person, oriented to place and cooperative Results & Data ([facility]) Vital Signs (Past 12 Hours) Vital Signs Temp Pulse Resp BP BP Pulse Ox 07/18/19 15:19 57 L 20 93 07/18/19 10:59 55 L 20 91 07/18/19 10:49 36.5 C 77 22 123/88 94 07/18/19 07:40 36.4 C L 53 L 16 128/85 94 07/18/19 07:11 53 L 22 92 07/18/19 03:50 36.5 C 39 L 13 148/76 H 99 PG Care Time/CCT Total # of Minutes Spent Total Time Spent with Patient: Total time spent is greater than 50% in coordination of care (as documented) at patient's floor/unit and/or counseling patient: Coding Level of Care Code 20998 Subseq Hosp Care Lvl 2 Diagnoses Aspiration pneumonia J69.0 Aspiration pneumonia type: unspecified Laterality: right Lung location: lower lobe of lung Acute on chronic respiratory failure with hypoxia and hypercapnia J96.21; J96.22 Acute diastolic (congestive) heart failure I50.31 CKD (chronic kidney disease) stage 3, GFR 30-59 ml/min N18.3 CAD (coronary artery disease) I25.119 Coronary Disease-Associated Artery/Lesion type: [place] artery [place] vs. transplanted heart: [place] heart Associated angina: with unspecified angina HTN (hypertension) I10 Hypertension type: unspecified Emphysema of lung J43.9 Gout M10.9 Chronicity: acute Gout etiology: unspecified cause Gout site: foot Laterality: left History of CVA (cerebrovascular accident) Z86.73 DVT prophylaxis Z29.9 (1) Aspiration pneumonia Aspiration pneumonia type: unspecified Laterality: right Lung location: lower lobe of lung Qualified Code(s): J69.0 - Pneumonitis due to inhalation of food and vomit (2) CAD (coronary artery disease) Coronary Disease-Associated Artery/Lesion type: [place] artery [place] vs. transplanted heart: [place] heart Associated angina: with unspecified angina Qualified Code(s): I25.119 - Atherosclerotic heart disease of [place] coronary artery with unspecified angina pectoris (3) HTN (hypertension) Hypertension type: unspecified Qualified Code(s): I10 - Essential (primary) hypertension (4) Gout Chronicity: acute Gout etiology: unspecified cause Gout site: foot Laterality: left Qualified Code(s): M10.9 - Gout, unspecified
[2019-07-18] MEDS: TRAZODONE HCL 100 MG TAB PO SCH (20:24)
[2019-07-19] MEDS: PEPTAMEN INTENSE VHP 1.0 CAL 1,000 ML BAG GT SCH (06:10)
[2019-07-19] MEDS: ALBUT/IPRATROP 3MG/0.5MG NEB 3 ML VIAL NEB SCH ×4 (07:15→18:50)
[2019-07-19] MEDS: BUDESONIDE 0.5 MG/2 ML VIAL (PULMICORT) NEB SCH ×2 (07:15→18:50)
[2019-07-19] MEDS ORDERED: ALUMINUM/MAGNESIUM/SIMETH (MAALOX MAX) 30 ML UDC PO STA (09:01)
[2019-07-19] MEDS: CLOPIDOGREL BISULFATE 75 MG TAB PEG SCH (09:25)
[2019-07-19] MEDS: AMLODIPINE BESYLATE 5 MG TAB PO SCH (09:25)
[2019-07-19] MEDS: ATORVASTATIN 40 MG TAB NG SCH (09:25)
[2019-07-19] MEDS: carvediloL 6.25 MG TAB NG SCH (09:25)
[2019-07-19] MEDS: HEPARIN SOD 5,000 UNIT/0.5 ML VIAL SQ SCH ×2 (09:25→20:25)
[2019-07-19] MEDS: PARoxetine HCL 10 MG TAB PO SCH (09:25)
[2019-07-19] MEDS: ASPIRIN 81 MG CHEW NG SCH (09:33)
[2019-07-19] MEDS: POLYETHYLENE (MIRALAX) 17 GM PACK PO SCH (09:33)
--- NOTE | 2019-07-19 13:12 | Hospitalist Progress Note ---
Date of Service July 19, 2019 Assessment & Plan (1) Aspiration pneumonia: With acute decompensation requiring reintubation on 07/08. CXR with bibasilar consolidation R>L. - VFSS on 07/15 indicated multiple episodes of silent aspiration, some of which could be due to the incomplete epiglottic deflection from the indwelling nasogastric tube. - DESPITE study tests, the patient was insistent on eating and was felt to be capable of making that determination. - Finished Unasyn x 10-day course on 07/17/2019. - Doing well today. Good respiratory status. BILL CHECKER saw him today and will PULL NG tube and get food/meds by mouth. (2) Acute on chronic respiratory failure with hypoxia and hypercapnia: Placed on antibiotics for possible aspiration pneumonitis on 07/08. Patient remained intubated on 07/11. Extubated for a short period of time on , but required reintubation overnight. Bronch on 07/09 showed purulent secretions and airway collapse. Bronch samples without any growth so far. - Last fever on 07/11 around noon. (3) Acute diastolic (congestive) heart failure: Echo on 07/07 was very poor, but LV function seemed normal. - Cardio consulted - Appreciate input - Holding any diuretic right now -> He is self-diuresing right now (possibly from the high solute load of all the IV fluids). Weight is down to 99.7 kg (lowest this admission). Cumulative I&Os reflect this as well, with -4L since admission. (4) CKD (chronic kidney disease) stage 3, GFR 30-59 ml/min: Baseline Cr appears to be ~1.2 - 1.5, eGFR 45. - Now at baseline -> On 07/16, Cr was 1.2. (5) CAD (coronary artery disease): S/p CABG at some point. Presented to [facility] on 07/03 and sent to [place] [facility] for emergency cardiac catheterization. Received 1 ATA to the mid-RCA. LAD had proximal and mid segment 70-80% lesions. Diagonal had 80% lesion. LCX also diseased. HELLER graft not evaluated at that time. Repeat cath on 07/[address] Everett showed patent HELLER -> LAD, occluded SVG -> PDA/OM. - Continue DAPT, beta-hanny, Imdur (6) HTN (hypertension): BP is 170/80 today. - Continue amlodipine, carvedilol, Imdur - Lowered carvedilol to 6.25 mg PO BID on 07/15 for bradycardia in the 40s. - Will increase Imdur starting on 07/19. (7) Emphysema of lung: Per history, patient apparently has a history of hypercapnic respiratory failure secondary to COPD. - Monitor O2 - Continue DuoNebs (8) Gout: No hot joints noted on exam today. Patient reports no joint pain. - Continue allopurinol as able (9) History of CVA (cerebrovascular accident): Multiple old lacunar infarcts seen on head CT while in ICU. - Continue DAPT, statin (10) DVT prophylaxis: Heparin 5000 units Q12h Admission and Anticipated Discharge Date Admission Date: July 07, 2019 Subjective Doing well today, though he reports some abdominal pain. No BM in several days. Reports no fevers/chills, chest pain, shortness of breath, nausea, or vomiting. Physical Exam Constitutional: WD/WN, vitals as above cooperative and + overweight; no acute distress and not lethargic Eyes: EOM intact bilaterally; no conjunctival abnormality ENMT: external ear and nose normal, oropharynx normal Neck: trachea midline, no thyromegaly normal visual inspection Respiratory: normal respiratory effort, lungs clear to auscultation + cough (Wet-sounding); no respiratory distress and no labored breathing Ausculta tion: + rhonchi Cardiovascular: RRR, no murmur, no edema Gastrointestinal (Abdomen): Inspection/Auscultation: abdomen normal to inspection; abdomen not distended Musculoskeletal: no cyanosis or clubbing, extremities motor strength 5/5 Skin: no rashes, warm and dry Neurologic: moves all extremities and awake Psychiatric: Orientation: oriented to person, oriented to place and cooperative Results & Data ([facility]) Vital Signs (Past 12 Hours) Vital Signs Temp Pulse Pulse Pulse Resp BP Pulse Ox 07/19/19 10:37 67 18 94 07/19/19 09:04 68 07/19/19 07:18 57 L 18 92 07/19/19 07:08 36.4 C L 65 18 171/82 H 91 07/19/19 03:30 56 L 14 97 PG Care Time/CCT Total # of Minutes Spent Total Time Spent with Patient: Total time spent is greater than 50% in coordination of care (as documented) at patient's floor/unit and/or counseling patient: Coding Level of Care Code 68596 Subseq Hosp Care Lvl 2 Diagnoses Aspiration pneumonia J69.0 Aspiration pneumonia type: unspecified Laterality: right Lung location: lower lobe of lung Acute on chronic respiratory failure with hypoxia and hypercapnia J96.21; J96.22 Acute diastolic (congestive) heart failure I50.31 CKD (chronic kidney disease) stage 3, GFR 30-59 ml/min N18.3 CAD (coronary artery disease) I25.119 Coronary Disease-Associated Artery/Lesion type: [place] artery [place] vs. transplanted heart: [place] heart Associated angina: with unspecified angina HTN (hypertension) I10 Hypertension type: unspecified Emphysema of lung J43.9 Gout M10.9 Chronicity: acute Gout etiology: unspecified cause Gout site: foot Laterality: left History of CVA (cerebrovascular accident) Z86.73 DVT prophylaxis Z29.9 (1) Aspiration pneumonia Aspiration pneumonia type: unspecified Laterality: right Lung location: lower lobe of lung Qualified Code(s): J69.0 - Pneumonitis due to inhalation of food and vomit (2) CAD (coronary artery disease) Coronary Disease-Associated Artery/Lesion type: [place] artery [place] vs. transplanted heart: [place] heart Associated angina: with unspecified angina Qualified Code(s): I25.119 - Atherosclerotic heart disease of [place] coronary artery with unspecified angina pectoris (3) HTN (hypertension) Hypertension type: unspecified Qualified Code(s): I10 - Essential (primary) hypertension (4) Gout Chronicity: acute Gout etiology: unspecified cause Gout site: foot Laterality: left Qualified Code(s): M10.9 - Gout, unspecified
--- NOTE | 2019-07-19 14:44 | XRay Report ---
XR chest 2V PA/lateral CLINICAL HISTORY: 68 years-old Male presenting with Shortness of breath, work of breathing. TECHNIQUE: PA and lateral views of the chest were obtained. COMPARISON: 07/16/2019. FINDINGS: Median sternotomy wires noted. Nasogastric tube descends below the diaphragm terminating in the body the stomach with sidehole also contained within the gastric lumen. Atherosclerosis of the aortic arch with prominence of the descending thoracic aorta likely in part due to slight [place] rotation. Cardiac silhouette top normal in size. Interval resolution of prior right infrahilar opacity. Improved aerati on of the left lung base. Trace pleural effusions may be present. No pneumothorax. Degenerative pitts es of the thoracic spine. Cholecystectomy clips noted. IMPRESSION: 1. Improved aeration of the lung bases. 2. The right upper lobe groundglass opacities evident on chest CT are not well depicted by radiograp h. 3. Appropriately positioned nasogastric tube. ACT 112: Negative or not required by law. Electronically signed by: Brayden Márquez M.D. 07/19/2019 2:43 PM
[2019-07-19] MEDS: lisinopriL 5 MG TAB PO SCH (15:15)
[2019-07-19] MEDS: ACETAMINOPHEN 325 MG TAB PO PRN (16:25)
[2019-07-19] MEDS: TRAZODONE HCL 100 MG TAB PO SCH (20:25)
[2019-07-19] MEDS: carvediloL 6.25 MG TAB PO SCH (20:25)
[2019-07-20] MEDS: ALBUT/IPRATROP 3MG/0.5MG NEB 3 ML VIAL NEB SCH ×2 (07:01→19:16)
[2019-07-20] MEDS: BUDESONIDE 0.5 MG/2 ML VIAL (PULMICORT) NEB SCH ×2 (07:01→19:16)
[2019-07-20] MEDS: carvediloL 6.25 MG TAB PO SCH ×2 (09:04→21:12)
[2019-07-20] MEDS: ASPIRIN 81 MG CHEW PO SCH (09:04)
[2019-07-20] MEDS: HEPARIN SOD 5,000 UNIT/0.5 ML VIAL SQ SCH ×2 (09:04→21:14)
[2019-07-20] MEDS: ISOSORBIDE MONO EXTENDED REL 30 MG TABCR PO SCH (09:04)
[2019-07-20] MEDS: CLOPIDOGREL BISULFATE 75 MG TAB PO SCH (09:05)
[2019-07-20] MEDS: lisinopriL 5 MG TAB PO SCH (09:05)
[2019-07-20] MEDS: PARoxetine HCL 10 MG TAB PO SCH (09:05)
[2019-07-20] MEDS: ATORVASTATIN 40 MG TAB PO SCH (09:05)
[2019-07-20] MEDS: POLYETHYLENE (MIRALAX) 17 GM PACK PO SCH (09:05)
[2019-07-20] MEDS: AMLODIPINE BESYLATE 5 MG TAB PO SCH (09:05)
[2019-07-20] MEDS: ONDANSETRON INJ 2 MG/ML 2 ML VIAL IV PRN (11:30)
--- NOTE | 2019-07-20 12:25 | Hospitalist Progress Note ---
Date of Service July 20, 2019 Assessment & Plan (1) Aspiration pneumonia: With acute decompensation requiring reintubation on 07/08. CXR with bibasilar consolidation R>L. - VFSS on 07/15 indicated multiple episodes of silent aspiration, some of which could be due to the incomplete epiglottic deflection from the indwelling nasogastric tube. - DESPITE study tests, the patient was insistent on eating and was felt to be capable of making that determination. - Finished Unasyn x 10-day course on 07/17/2019. - Doing well today. Remains on O2 during day and BiPAP at night. NGT out and started on pureed diet but pt does not like this and refusing to eat much Also refusing mobilization to chair Appreciate Speech following al ng (2) Acute on chronic respiratory failure with hypoxia and hypercapnia: Placed on antibiotics for possible aspiration pneumonitis on 07/08. Patient remained intubated on 07/11. Extubated for a short period of time on , but required reintubation overnight. Bronch on 07/09 showed purulent secretions and airway collapse. Bronch samples without any growth so far. - Last fever on 07/11 around noon. Again, remains on O2 during day and BiPAP qhs (3) Acute diastolic (congestive) heart failure: Echo on 07/07 was very poor quality, but LV function seemed normal. - Cardio consulted - Appreciate input - continue holding any diuretic right now -> He is self-diuresing right now (possibly from the high solute load of all the IV fluids). Weight is down to 99.7 kg (lowest this admission). Cumulative I&Os reflect this as well, with -4L since admission. (4) CKD (chronic kidney disease) stage 3, GFR 30-59 ml/min: With Acute kidney injury in setting of CKD stage 3, h/o solitary kidney s/p nephrectomy Hide Spreader peaked at 2.4 Baseline Cr appears to be ~1.5, eGFR 45. - Now below baseline with vat cleaner 1.34 -follow BMP in AM Avoid nephrotoxins, renally dose meds (5) CAD (coronary artery disease): S/p CABG at some point. Presented to [facility] on 07/03 and sent to [place] for emergency cardiac catheterization. Received 1 ATA to the mid-RCA. LAD had proximal and mid segment 70-80% lesions. Diagonal had 80% lesion. LCX also diseased. HELLER graft not evaluated at that time. Repeat cath on 07/[address] Everett here showed patent HELLER -> LAD, occluded SVG -> PDA/OM. Had ST elevations in setting of aspiration PNA inferior leads 07/09 that then resolved Recent inferior [place], Multivessel CAD, patent RCA stent on cath here - Continue DAPT, Coreg, and now restarted on Imdur now that is taking po -continue atorvastatin (6) HTN (hypertension): BPs controlled - Continue amlodipine, carvedilol, Imdur, lisinopril - Lowered carvedilol to 6.25 mg PO BID on 07/15 for bradycardia in the 40s. (7) Emphysema of lung: Per history, patient apparently has a history of hypercapnic respiratory f ailure secondary to COPD. - Monitor O2 - Continue DuoNebs -continue BiPAP qhs (8) Gout: No hot joints noted on exam. Patient reports no joint pain. - restarted allopurinol (9) History of CVA (cerebrovascular accident): Multiple old lacunar infarcts seen on head CT while in ICU. - Continue DAPT, statin (10) Dyspepsia: improved with ZOfran today -has not been on the Pepcid for 4 days -start Protonix in case of stress-induced ulcer given prolonged ICU stay (11) DVT prophylaxis: Heparin 5000 units Q12h Dispo-slow improvement, encouraged mobilization Needs daily PT/OT Possible dc to SNF in 1-2 days Admission and Anticipated Discharge Date Admission Date: July 07, 2019 Subjective Pt reports he will not eat the pureed diet, wants more but Speech Tx tells me he is at extremely high risk for recurrent aspiration. He denies chest pain or cough, but won't tell me much else. Denies abd pain and moved bowels yesterday. He is resistant to going to rehab but is accepting of such Review of Systems Review of Systems: All systems reviewed & are unremarkable except as noted in HPI & below Physical Exam Constitutional: WD/WN, vitals as above + ill appearing (chronically) and + obese Eyes: + anicteric sclerae ENMT: external ear and nose normal, oropharynx normal (scab on bridge of nose) Neck: trachea midline, no thyromegaly Respiratory: normal respiratory effort, lungs clear to auscultation Cardiovascular: RRR, no murmur, no edema Chest (Breasts): Chest: normal inspection of chest Gastrointestinal (Abdomen): Inspection/Auscultation: abdomen normal to inspection and + abdomen distended (mild) Musculoskeletal: Extremities: extremities normal to inspection; no cyanosis and no clubbing Skin: no rashes, warm and dry Neurologic: moves all extremities and awake; no focal motor deficits Psychiatric: Orientation: alert and cooperative Affect: + flat affect Lymphatic: no lymphedema Results & Data ([facility]) Vital Signs (Past 12 Hours) Vital Signs Temp Pulse Pulse Resp BP Pulse Ox 07/20/19 07:06 61 61 18 95 07/20/19 06:37 37.0 C 58 L 18 113/73 95 07/20/19 04:55 60 14 93 Laboratory Results no labs PG Care Time/CCT Total # of Minutes Spent Total Time Spent with Patient: Total time spent is greater than 50% in coordination of care (as documented) at patient's floor/unit and/or counseling patient: Coding Level of Care Code 94915 Subseq Hosp Care Lvl 3 Diagnoses Aspiration pneumonia J69.0 Aspiration pneumonia type: unspecified Laterality: right Lung location: lower lobe of lung Acute on chronic respiratory failure with hypoxia and hypercapnia J96.21; J96.22 Acute diastolic (congestive) heart failure I50.31 CKD (chronic kidney disease) stage 3, GFR 30-59 ml/min N18.3 CAD (coronary artery disease) I25.119 Associated angina: with unspecified angina Coronary Disease-Associated Artery/Lesion type: [place] artery [place] vs. transplanted heart: [place] heart HTN (hypertension) I10 Hypertension type: unspecified Emphysema of lung J43.9 Gout M10.9 Chronicity: acute Gout etiology: unspecified cause Gout site: foot Laterality: left History of CVA (cerebrovascular accident) Z86.73 Dyspepsia R10.13 DVT prophylaxis Z29.9 (1) Gout Chronicity: acute Gout etiology: unspecified cause Gout site: foot Laterality: left Qualified Code(s): M10.9 - Gout, unspecified (2) CAD (coronary artery disease) Associated angina: with unspecified angina Coronary Disease-Associated Artery/Lesion type: [place] artery [place] vs. transplanted heart: [place] heart Qualified Code(s): I25.119 - Atherosclerotic heart disease of [place] coronary artery with unspecified angina pectoris (3) Aspiration pneumonia Aspiration pneumonia type: unspecified Laterality: right Lung location: lower lobe of lung Qualified Code(s): J69.0 - Pneumonitis due to inhalation of food and vomit (4) HTN (hypertension) Hypertension type: unspecified Qualified Code(s): I10 - Essential (primary) hypertension
[2019-07-20] MEDS: PANTOprazole 40 MG TAB PO SCH (13:29)
[2019-07-20] MEDS: TRAZODONE HCL 100 MG TAB PO SCH (21:12)
[2019-07-20] MEDS: allopurinoL 100 MG TAB PO SCH (21:15)
[2019-07-21] MEDS: ALBUT/IPRATROP 3MG/0.5MG NEB 3 ML VIAL NEB SCH ×3 (07:16→19:05)
[2019-07-21] MEDS: BUDESONIDE 0.5 MG/2 ML VIAL (PULMICORT) NEB SCH ×2 (07:16→19:03)
[2019-07-21 08:05] LABS: Basophils # (auto) 0.02 K/uL (0-0.2); Basophils % (auto) 0.2 %; Eosinophils # (auto) 0.31 K/uL (0-0.5); Eosinophils % (auto) 3.2 %; Hematocrit (blood only) 37.1 % (42-52); Hemoglobin 11.7 g/dL (14.0-18.0); Immature Granulocytes # (auto) 0.05 K/uL (0.00-0.02); Immature Granulocytes % (auto) 0.5 %; Lymphocytes # (auto) 2.53 K/uL (1.2-3.4); Lymphocytes % (auto) 26.2 %; Mean Corpuscular Hemoglobin 29.5 pg (25-34); Mean Corpuscular Hgb Conc 31.5 g/dL (32-36); Mean Corpuscular Volume 93.5 fL (80-100); Mean Platelet Volume 9.4 fL (7.4-10.4); Monocytes # (auto) 0.93 K/uL (0.11-0.59); Monocytes % (auto) 9.6 %; Neutrophils # (auto) 5.81 K/uL (1.4-6.5); Neutrophils % (auto) 60.3 %; Platelet Count 286 K/uL (130-400); RDW Coefficient of Variation 15.4 % (11.5-14.5); RDW Standard Deviation 52.1 fL (36.4-46.3); Red Blood Count 3.97 M/uL (4.7-6.1); White Blood Count 9.65 K/uL (4.8-10.8)
[2019-07-21] MEDS: AMLODIPINE BESYLATE 5 MG TAB PO SCH (08:10)
[2019-07-21] MEDS: allopurinoL 100 MG TAB PO SCH ×2 (08:10→20:25)
[2019-07-21] MEDS: POLYETHYLENE (MIRALAX) 17 GM PACK PO SCH (08:12)
[2019-07-21] MEDS: CLOPIDOGREL BISULFATE 75 MG TAB PO SCH (08:12)
[2019-07-21] MEDS: ASPIRIN 81 MG CHEW PO SCH (08:12)
[2019-07-21] MEDS: lisinopriL 5 MG TAB PO SCH (08:13)
[2019-07-21] MEDS: PARoxetine HCL 10 MG TAB PO SCH (08:13)
[2019-07-21] MEDS: carvediloL 6.25 MG TAB PO SCH ×2 (08:14→20:27)
[2019-07-21] MEDS: HEPARIN SOD 5,000 UNIT/0.5 ML VIAL SQ SCH ×2 (08:15→20:19)
[2019-07-21] MEDS: ATORVASTATIN 40 MG TAB PO SCH (08:15)
[2019-07-21 08:42] LABS: Alanine Aminotransferase 51 U/L (12-78); Aspartate Aminotransferase 52 U/L (15-37); Bilirubin Direct < 0.1 mg/dl (0-0.2); Blood Urea Nitrogen 21 mg/dl (7-18); Calcium 8.7 mg/dl (8.5-10.1); Carbon Dioxide 27 mmol/L (21-32); Chloride 107 mmol/L (98-107); Creatinine Clr Calc Pharmacy 51.7 ml/min; Est GFR (African American) 54.7; Est GFR (Non-African American) 47.2; Glucose 92 mg/dl (70-99); Magnesium 2.4 mg/dl (1.8-2.4); Potassium 4.6 mmol/L (3.5-5.1); Sodium 139 mmol/L (136-145)
[2019-07-21 08:44] LABS: Alkaline Phosphatase 167 U/L (45-117); Bilirubin,Total 0.3 mg/dl (0.2-1); Phosphorus 3.1 mg/dl (2.5-4.9); Total Protein 6.8 gm/dl (6.4-8.2)
[2019-07-21] MEDS: PANTOprazole 40 MG TAB PO SCH (09:31)
[2019-07-21] MEDS: ISOSORBIDE MONO EXTENDED REL 30 MG TABCR PO SCH (09:31)
[2019-07-21] MEDS: UMECLIDINIUM BROMIDE 62.5MCG/BLISTER 7 PUFFS/INHALER INH SCH (10:25)
[2019-07-21] MEDS: ISOSORBIDE MONONITRATE 20 MG TAB PO SCH ×2 (10:26→20:26)
[2019-07-21] MEDS: LANSOPRAZOLE 30 MG SOLTAB PO SCH (10:26)
--- NOTE | 2019-07-21 18:31 | Hospitalist Progress Note ---
Date of Service July 21, 2019 Assessment & Plan (1) Aspiration pneumonia: With acute decompensation requiring reintubation on 07/08. CXR with bibasilar consolidation R>L. - VFSS on 07/15 indicated multiple episodes of silent aspiration, some of which could be due to the incomplete epiglottic deflection from the indwelling nasogastric tube. - DESPITE study tests, the patient was insistent on eating and was felt to be capable of making that determination. - Finished Unasyn x 10-day course on 07/17/2019. - Doing better today. Remains on O2 during day and BiPAP at night. NGT out and started on pureed diet but pt does not like this and refusing to eat much but also improving today Now with mobilization to chair Appreciate Speech following along (2) Acute on chronic respiratory failure with hypoxia and hypercapnia: Placed on antibiotics for possible aspiration pneumonitis on 07/08. Patient remained intubated on 07/11. Extubated for a short period of time on , but required reintubation overnight. Bronch on 07/09 showed purulent secretions and airway collapse. Bronch samples without any growth so far. - Last fever on 07/11 around noon. Again, remains on O2 during day and BiPAP qhs -continue nebs for wheezing prn Also has COPD (3) Acute diastolic (congestive) heart failure: Echo on 07/07 was very poor quality, but LV function seemed normal. - Cardio consulted - Appreciate input - continue holding any diuretic right now -> He is self-diuresing right now (possibly from the high solute load of all the IV fluids). Weight is down to 99.7 kg (lowest this admission). Cumulative I&Os reflect this as well, with -4L since admission. (4) CKD (chronic kidney disease) stage 3, GFR 30-59 ml/min: With Acute kidney injury in setting of CKD stage 3, h/o solitary kidney s/p nephrectomy Keno Writer peaked at 2.4 Baseline Cr appears to be ~1.5, eGFR 45. - was then below baseline with chief of planning 1.34 --> now back up today to 1.49 likely mild dehydration from poor po intake since tube feeds stopped Not on IVFs -follow BMP in AM Avoid nephrotoxins, renally dose meds -encouraged increased po intake with liquids (5) CAD (coronary artery disease): S/p CABG at some point. Presented to [facility] on 07/03 and sent to [place] for emergency cardiac catheterization. Received 1 ATA to the mid-RCA. LAD had proximal and mid segment 70-80% lesions. Diagonal had 80% lesion. LCX also diseased. HELLER graft not evaluated at that time. Repeat cath on 07/[address] Everett here showed patent HELLER -> LAD, occluded SVG -> PDA/OM. Had ST elevations in setting of aspiration PNA inferior leads 07/09 that then resolved Recent inferior OR, Multivessel CAD, patent RCA stent on cath here - Continue DAPT, Coreg, and started immediate release Imdur 10mg bid due to has to have crushed tablets -continue atorvastatin (6) HTN (hypertension): BPs controlled - Continue amlodipine, carvedilol, isosorbide, lisinopril - Lowered carvedilol to 6.25 mg PO BID on 07/15 for bradycardia in the 40s. (7) Emphysema of lung: Per history, patient apparently has a history of hypercapnic respiratory failure secondary to COPD. - Monitor O2 - Continue DuoNebs -continue BiPAP qhs (8) Gout: No hot joints noted on exam. Patient reports no joint pain. - restarted allopurinol (9) History of CVA (cerebrovascular accident): Multiple old lacunar infarcts seen on head CT while in ICU. - Continue DAPT, statin (10) Dyspepsia: improved with ZOfran, starting PPI -had not been on the Pepcid for 4 days -started Prevacid which can be crushed in case of stress-induced ulcer given prolonged ICU stay (11) DVT prophylaxis: Heparin 5000 units Q12h Dispo-slow improvement, encouraged mobilization Needs daily PT/OT Possible dc to SNF tomorrow Admission and Anticipated Discharge Date Admission Date: July 07, 2019 Subjective Pt improved today and says "When am I getting out of here?" He is eating some more today. Encouraged drinking given chief of planning rise. He is making urine, moving bowels. Was OOB with PT/OT today and walked a little bit, was in chair No chest pain but does feel a little SOB and feels like needs a neb treatment. Review of Systems Review of Systems: All systems reviewed & are unremarkable except as noted in HPI & below Physical Exam Constitutional: WD/WN, vitals as above + ill appearing (chronically) and + obese Eyes: + anicteric sclerae ENMT: external ear and nose normal, oropharynx normal (scab on bridge of nose) Nose: + dry nasal mucous membranes Neck: trachea midline, no thyromegaly Respiratory: normal respiratory effort Auscultation: + rhonchi (lower lung serrano) and + wheezes Cardiovascular: RRR, no murmur, no edema Chest (Breasts): Chest: normal inspection of chest Gastrointestinal (Abdomen): normal bowel sounds, soft, nontender, no hepatosplenomegaly Inspection/Auscultation: abdomen normal to inspection and + abdomen distended (mild) Musculoskeletal: Extremities: extremities normal to inspection; no cyanosis and no clubbing Skin: no rashes, warm and dry Neurologic: moves all extremities and awake; no focal motor deficits Psychiatric: Orientation: alert and cooperative Affect: + flat affect Lymphatic: no lymphedema Results & Data ([facility]) Vital Signs (Past 12 Hours) Vital Signs Temp Pulse Pulse Resp BP Pulse Ox 07/21/19 15:53 36.9 C 65 19 101/66 92 07/21/19 14:11 57 L 26 H 96 07/21/19 07:56 36.5 C 57 L 18 111/79 96 07/21/19 07:18 56 L 17 96 07/21/19 07:17 56 L 17 96 Laboratory Results labs reviewed PG Care Time/CCT Total # of Minutes Spent Total Time Spent with Patient: Total time spent is greater than 50% in coordination of care (as documented) at patient's floor/unit and/or counseling patient: Coding Level of Care Code 45460 Subseq Hosp Care Lvl 2 Diagnoses Aspiration pneumonia J69.0 Aspiration pneumonia type: unspecified Laterality: right Lung location: lower lobe of lung Acute on chronic respiratory failure with hypoxia and hypercapnia J96.21; J96.22 Acute diastolic (congestive) heart failure I50.31 CKD (chronic kidney disease) stage 3, GFR 30-59 ml/min N18.3 CAD (coronary artery disease) I25.119 Associated angina: with unspecified angina Coronary Disease-Associated Artery/Lesion type: [place] artery [place] vs. transplanted heart: [place] heart HTN (hypertension) I10 Hypertension type: unspecified Emphysema of lung J43.9 Gout M10.9 Chronicity: acute Gout etiology: unspecified cause Gout site: foot Laterality: left History of CVA (cerebrovascular accident) Z86.73 Dyspepsia R10.13 DVT prophylaxis Z29.9 (1) Gout Chronicity: acute Gout etiology: unspecified cause Gout site: foot Laterality: left Qualified Code(s): M10.9 - Gout, unspecified (2) CAD (coronary artery disease) Associated angina: with unspecified angina Coronary Disease-Associated Artery/Lesion type: [place] artery [place] vs. transplanted heart: [place] heart Qualified Code(s): I25.119 - Atherosclerotic heart disease of [place] coronary artery with unspecified angina pectoris (3) Aspiration pneumonia Aspiration pneumonia type: unspecified Laterality: right Lung location: lower lobe of lung Qualified Code(s): J69.0 - Pneumonitis due to inhalation of food and vomit (4) HTN (hypertension) Hypertension type: unspecified Qualified Code(s): I10 - Essential (primary) hypertension
[2019-07-21] MEDS: TAMSULOSIN HCL 0.4 MG CAP PO SCH (20:24)
[2019-07-21] MEDS: TRAZODONE HCL 100 MG TAB PO SCH (20:27)
[2019-07-21] MEDS: ACETAMINOPHEN 325 MG TAB PO PRN (21:19)
[2019-07-22] MEDS: BUDESONIDE 0.5 MG/2 ML VIAL (PULMICORT) NEB SCH ×2 (07:11→19:44)
[2019-07-22] MEDS: ALBUT/IPRATROP 3MG/0.5MG NEB 3 ML VIAL NEB SCH ×4 (07:11→19:44)
[2019-07-22] MEDS: PARoxetine HCL 10 MG TAB PO SCH (08:25)
[2019-07-22] MEDS: ATORVASTATIN 40 MG TAB PO SCH (08:25)
[2019-07-22] MEDS: ASPIRIN 81 MG CHEW PO SCH (08:25)
[2019-07-22] MEDS: CLOPIDOGREL BISULFATE 75 MG TAB PO SCH (08:25)
[2019-07-22] MEDS: LANSOPRAZOLE 30 MG SOLTAB PO SCH (08:26)
[2019-07-22] MEDS: POLYETHYLENE (MIRALAX) 17 GM PACK PO SCH ×2 (08:26→20:54)
[2019-07-22] MEDS: carvediloL 6.25 MG TAB PO SCH ×2 (08:26→20:51)
[2019-07-22] MEDS: ISOSORBIDE MONONITRATE 20 MG TAB PO SCH ×2 (08:26→20:51)
[2019-07-22] MEDS: lisinopriL 5 MG TAB PO SCH (08:26)
[2019-07-22] MEDS: HEPARIN SOD 5,000 UNIT/0.5 ML VIAL SQ SCH ×2 (08:26→20:53)
[2019-07-22] MEDS: allopurinoL 100 MG TAB PO SCH ×2 (08:26→20:52)
[2019-07-22] MEDS: AMLODIPINE BESYLATE 5 MG TAB PO SCH (08:26)
[2019-07-22] MEDS: UMECLIDINIUM BROMIDE 62.5MCG/BLISTER 7 PUFFS/INHALER INH SCH (08:28)
[2019-07-22 10:18] LABS: BUN Creatinine Ratio 13.3 (10-20); Calcium 8.6 mg/dl (8.5-10.1); Creatinine Clr Calc Pharmacy 44.7 ml/min; Est GFR (Non-African American) 40.5; Potassium 4.1 mmol/L (3.5-5.1)
[2019-07-22] MEDS ORDERED: SODIUM CHLORIDE 0.9% 500 ML IV SCH (10:45)
--- NOTE | 2019-07-22 18:09 | Hospitalist Progress Note ---
Date of Service July 22, 2019 Assessment & Plan (1) Aspiration pneumonia: With acute decompensation requiring reintubation on 07/08. CXR with bibasilar consolidation R>L. - VFSS on 07/15 indicated multiple episodes of silent aspiration, some of which could be due to the incomplete epiglottic deflection from the indwelling nasogastric tube. - DESPITE study tests, the patient was insistent on eating and was felt to be capable of making that determination. - Finished Unasyn x 10-day course on 07/17/2019. -Overall improved but remains with cough, wheezing, and intermittent shortness of breath. Remains on O2 during day and BiPAP at night. Afebrile Now with mobilization to chair daily Appreciate Speech following along and would benefit from ongoing outpatient speech therapy Remains high risk for recurrent aspiration (2) Acute on chronic respiratory failure with hypoxia and hypercapnia: Placed on antibiotics for possible aspiration pneumonitis on 07/08. Patient remained intubated on 07/11. Extubated for a short period of time on , but required reintubation overnight. Bronch on 07/09 showed purulent secretions and airway collapse. Bronch samples without any growth - Last fever on 07/11 around noon. Again, remains on O2 during day and BiPAP qhs -continue nebs for wheezing prn Also has COPD (3) Dyspepsia: Intermittent over the last 4 to 5 days Was somewhat improved with starting Prevacid, however increased again today after eating large meal Suspect possible ICU/stress-induced peptic ulcer disease versus dyspepsia from overeating as he had not eaten a full meal in 2 weeks -Continue Prevacid 30 mg daily -Start Pepcid 20 mg p.o. twice daily -Increased bowel regimen to work on relative constipation-increase MiraLAX to twice daily (4) Acute diastolic (congestive) heart failure: Echo on 07/07 was very poor quality, but LV function seemed normal. - Cardio consulted - Appreciate input - continue holding any diuretic right now for poor p.o. intake and worsening prerenal ERICH (5) CKD (chronic kidney disease) stage 3, GFR 30-59 ml/min: With Acute kidney injury in setting of CKD stage 3, h/o solitary kidney s/p nephrectomy Maintenance Representative peaked at 2.4 Baseline Cr appears to be ~1.5, eGFR 45. - was then below baseline with manager corporate marketing 1.34 --> now back up even further today to 1.69 likely mild dehydration from poor po intake since tube feeds stopped Not on IVFs-give 500 mL's of normal saline over 4 hours today -follow BMP in AM Avoid nephrotoxins, renally dose meds -encouraged increased po intake with liquids (6) CAD (coronary artery disease): S/p CABG in the past. Presented to [facility] on 07/03 and sent to [place] for emergency cardiac catheterization. Received 1 ATA to the mid-RCA. LAD had proximal and mid segment 70-80% lesions. Diagonal had 80% lesion. LCX also diseased. HELLER graft not evaluated at that time. Repeat cath on 07/[address] Everett here upon admission showed patent HELLER -> LAD, occluded SVG -> PDA/OM. Had ST elevations in setting of aspiration PNA inferior leads 07/09 that then resolved Recent inferior CT, Multivessel CAD, patent RCA stent on cath here - Continue DAPT, Coreg, and immediate release isosorbide 10mg bid due to need for crushed tablets -continue atorvastatin and lisinopril (7) HTN (hypertension): BPs controlled - Continue amlodipine, carvedilol, isosorbide, lisinopril - Lowered carvedilol to 6.25 mg PO BID on 07/15 for bradycardia in the 40s. (8) Emphysema of lung: Per history, patient apparently has a history of hypercapnic respiratory failure secondary to COPD. - Monitor O2 - Continue DuoNebs -continue BiPAP qhs (9) Gout: No hot joints noted on exam. Patient reports no joint pain. - restarted allopurinol (10) History of CVA (cerebrovascular accident): Multiple old lacunar infarcts seen on head CT while in ICU. - Continue DAPT for CAD as above, but needs single antiplatelet drug therapy only for the history of CVA -Continue statin (11) DVT prophylaxis: Heparin 5000 units Q12h Dispo-slow improvement, encouraged mobilization Needs daily PT/OT Possible dc to SNF tomorrow as not available today High risk for readmission and high risk for recurrent aspiration, severely deconditioned Admission and Anticipated Discharge Date Admission Date: July 07, 2019 Anticipated date of discharge: 07/23/19 Subjective Pt reports having nausea after eating his full tray for dinner. No vomiting. This is the most food he has eaten in a long time. He is moving his bowels once daily but not a large volume. No abd pain but has some discomfort in the epigastric region. Denies chest pain but is still coughing and has some pain in the left side of chest only with cough. No shortness of breath but remains on supplemental O2. He is making urine and reports he is drinking more fluids today. Review of Systems Review of Systems: All systems reviewed & are unremarkable except as noted in HPI & below Physical Exam Constitutional: WD/WN, vitals as above + ill appearing (chronically) and + obese Eyes: + anicteric sclerae ENMT: external ear and nose normal, oropharynx normal (scab on bridge of nose) Neck: trachea midline, no thyromegaly Respiratory: normal respiratory effort Auscultation: + wheezes (A few faint bilateral expiratory wheezes); no crackles and no rhonchi Cardiovascular: RRR, no murmur, no edema Chest (Breasts): Chest: normal inspection of chest Gastrointestinal (Abdomen): normal bowel sounds, soft, nontender, no hepatosplenomegaly Musculoskeletal: Extremities: extremities normal to inspection; no cyanosis and no clubbing Skin: no rashes, warm and dry Neurologic: moves all extremities and awake; no focal motor deficits Psychiatric: Orientation: alert and cooperative Affect: + flat affect Lymphatic: no lymphedema Results & Data ([facility]) Vital Signs (Past 12 Hours) Vital Signs Temp Pulse Pulse Resp BP BP Pulse Ox 07/22/19 16:16 76 18 95 07/22/19 15:44 36.4 C L 73 18 122/71 92 07/22/19 10:03 72 18 96 07/22/19 07:11 61 61 21 96 07/22/19 07:08 36.5 C 56 L 20 108/71 96 Laboratory Results 07/22/19 Range/Units 09:29 Sodium 137 (136-145) mmol/L Potassium 4.1 (3.5-5.1) mmol/L Chloride 106 (98-107) mmol/L Carbon Dioxide 28 (21-32) mmol/L Anion Gap 2.0 L (3-11) BUN 22 H (7-18) mg/dl Creatinine 1.69 H (0.6-1.4) mg/dl Est Cr Clr Drug Dosing 44.7 ml/min Est GFR ( Amer) 47.0 Est GFR (Non-Af Amer) 40.5 BUN/Creatinine Ratio 13.3 (10-20) Glucose 121 H (70-99) mg/dl Calcium 8.6 (8.5-10.1) mg/dl PG Care Time/CCT Total # of Minutes Spent Total Time Spent with Patient: Total time spent is greater than 50% in coordination of care (as documented) at patient's floor/unit and/or counseling patient: Coding Level of Care Code 48610 Subseq Hosp Care Lvl 2 Diagnoses Aspiration pneumonia J69.0 Aspiration pneumonia type: unspecified Laterality: right Lung location: lower lobe of lung Acute on chronic respiratory failure with hypoxia and hypercapnia J96.21; J96.22 Dyspepsia R10.13 Acute diastolic (congestive) heart failure I50.31 CKD (chronic kidney disease) stage 3, GFR 30-59 ml/min N18.3 CAD (coronary artery disease) I25.119 Associated angina: with unspecified angina Coronary Disease-Associated Artery/Lesion type: [place] artery [place] vs. transplanted heart: [place] heart HTN (hypertension) I10 Hypertension type: unspecified Emphysema of lung J43.9 Gout M10.9 Chronicity: acute Gout etiology: unspecified cause Gout site: foot Laterality: left History of CVA (cerebrovascular accident) Z86.73 DVT prophylaxis Z29.9 (1) Gout Chronicity: acute Gout etiology: unspecified cause Gout site: foot Laterality: left Qualified Code(s): M10.9 - Gout, unspecified (2) CAD (coronary artery disease) Associated angina: with unspecified angina Coronary Disease-Associated Artery/Lesion type: [place] artery [place] vs. transplanted heart: [place] heart Qualified Code(s): I25.119 - Atherosclerotic heart disease of [place] coronary artery with unspecified angina pectoris (3) Aspiration pneumonia Aspiration pneumonia type: unspecified Laterality: right Lung location: lower lobe of lung Qualified Code(s): J69.0 - Pneumonitis due to inhalation of food and vomit (4) HTN (hypertension) Hypertension type: unspecified Qualified Code(s): I10 - Essential (primary) hypertension
[2019-07-22] MEDS: ONDANSETRON INJ 2 MG/ML 2 ML VIAL IV PRN (18:22)
[2019-07-22] MEDS: FAMOTIDINE 20 MG TAB PO SCH (18:46)
[2019-07-22] MEDS: TRAZODONE HCL 100 MG TAB PO SCH (20:51)
[2019-07-22] MEDS: TAMSULOSIN HCL 0.4 MG CAP PO SCH (20:52)
[2019-07-23 06:11] LABS: Basophils # (auto) 0.02 K/uL (0-0.2); Basophils % (auto) 0.3 %; Eosinophils # (auto) 0.25 K/uL (0-0.5); Eosinophils % (auto) 3.3 %; Hemoglobin 10.4 g/dL (14.0-18.0); Immature Granulocytes # (auto) 0.03 K/uL (0.00-0.02); Immature Granulocytes % (auto) 0.4 %; Lymphocytes # (auto) 2.06 K/uL (1.2-3.4); Lymphocytes % (auto) 27.3 %; Mean Corpuscular Hemoglobin 29.1 pg (25-34); Mean Corpuscular Hgb Conc 31.5 g/dL (32-36); Mean Corpuscular Volume 92.2 fL (80-100); Mean Platelet Volume 10.2 fL (7.4-10.4); Monocytes # (auto) 0.79 K/uL (0.11-0.59); Monocytes % (auto) 10.5 %; Neutrophils # (auto) 4.39 K/uL (1.4-6.5); Neutrophils % (auto) 58.2 %; Platelet Count 247 K/uL (130-400); RDW Coefficient of Variation 14.7 % (11.5-14.5); RDW Standard Deviation 49.5 fL (36.4-46.3); Red Blood Count 3.58 M/uL (4.7-6.1); White Blood Count 7.54 K/uL (4.8-10.8)
[2019-07-23 06:45] LABS: BUN Creatinine Ratio 12.7 (10-20); Calcium 8.2 mg/dl (8.5-10.1); Creatinine Clr Calc Pharmacy 50.1 ml/min; Est GFR (African American) 53.8; Est GFR (Non-African American) 46.5; Potassium 4.4 mmol/L (3.5-5.1)
[2019-07-23] MEDS: ALBUT/IPRATROP 3MG/0.5MG NEB 3 ML VIAL NEB SCH (07:10)
[2019-07-23] MEDS: BUDESONIDE 0.5 MG/2 ML VIAL (PULMICORT) NEB SCH (07:10)
[2019-07-23] MEDS: ATORVASTATIN 40 MG TAB PO SCH (08:00)
[2019-07-23] MEDS: AMLODIPINE BESYLATE 5 MG TAB PO SCH (08:00)
[2019-07-23] MEDS: CLOPIDOGREL BISULFATE 75 MG TAB PO SCH (08:00)
[2019-07-23] MEDS: allopurinoL 100 MG TAB PO SCH (08:00)
[2019-07-23] MEDS: carvediloL 6.25 MG TAB PO SCH (08:00)
[2019-07-23] MEDS: ISOSORBIDE MONONITRATE 20 MG TAB PO SCH (08:00)
[2019-07-23] MEDS: ASPIRIN 81 MG CHEW PO SCH (08:01)
[2019-07-23] MEDS: UMECLIDINIUM BROMIDE 62.5MCG/BLISTER 7 PUFFS/INHALER INH SCH (08:01)
[2019-07-23] MEDS: HEPARIN SOD 5,000 UNIT/0.5 ML VIAL SQ SCH (08:01)
[2019-07-23] MEDS: POLYETHYLENE (MIRALAX) 17 GM PACK PO SCH (08:01)
[2019-07-23] MEDS: lisinopriL 5 MG TAB PO SCH (08:01)
[2019-07-23] MEDS: FAMOTIDINE 20 MG TAB PO SCH (08:01)
[2019-07-23] MEDS: LANSOPRAZOLE 30 MG SOLTAB PO SCH (08:01)
[2019-07-23] MEDS: PARoxetine HCL 10 MG TAB PO SCH (08:23)
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
== END 2019-07-23 15:41 | DRG 208 ==
LOC: ED 14:46 → 2E 15:24 → CC 15:24 → SUATTDRO 16:31 → 1E 07-08 03:46 → 2E 07-14 13:19 → 1E 07-14 13:33 → 2E 07-14 13:34 → 2W 07-18 17:37 → 4W 07-23 00:25